=== PATIENT | male | born 1960 | race Caucasian/White ===

== ENCOUNTER 2016-12-01 05:58 | Inpatient (IN) | payer MEDICAID ==
[~2016-12-01] VITALS: Ht 177.8 cm; Wt 69.8 kg
[2016-12-01] MEDS ORDERED: SODIUM CHLORIDE 0.9% 1,000 ML IV ONE ×2 (06:40→08:25)
[2016-12-01] MEDS ORDERED: DIPH,PERTUSS(ACELL),TET VAC/PF 0.5 ML IM-VACC ONE ×2 (06:58→07:00)
[2016-12-01] MEDS ORDERED: SODIUM CHLORIDE 0.9% 1,000ML IVBOLUS ONE ×2 (07:00)
[2016-12-01] MEDS ORDERED: AMPICILLIN/SULBACTAM 3 GM in SODIUM CHLORIDE 0.9% 100 ML IVPB ONE (07:00)
[2016-12-01 07:34] LABS: ASPARTATE AMINO TRANSFERASE 35 U/L (15-37); BLOOD UREA NITROGEN 27 mg/dL (7-18)
[2016-12-01] MEDS ORDERED: SODIUM CHLORIDE FLUSH 10ML SYR IVF PRN (08:30)
[2016-12-01 10:19] VITALS: BP 127/70
[2016-12-01] MEDS ORDERED: VANCOMYCIN PMX 1GM/200ML 200 ML IV ONE (12:00)
[2016-12-01] MEDS ORDERED: VANCOMYCIN PER PHARMACY MC PRN (12:00)
[2016-12-01] MEDS ORDERED: PHARMACY INSTRUCTION MC SCH (12:00)
[2016-12-01] MEDS ORDERED: PHARMACOKINETIC MONITORING MC PRN (12:30)
[2016-12-01] MEDS ORDERED: PHARMACOKINETIC CONSULTATION MC ONE (12:30)
[2016-12-01 12:35] VITALS: BP 98/60
[2016-12-01] MEDS: SERTRALINE 50MG TABLET PO SCH (13:00)
[2016-12-01] MEDS ORDERED: ACETAMINOPHEN 325 MG TABLET PO PRN (13:00)
[2016-12-01] MEDS: SODIUM CHLORIDE 0.9% 1,000 ML IV SCH ×2 (13:03→21:48)
[2016-12-01] MEDS: VANCOMYCIN PMX 1GM/200ML 200 ML IV SCH (13:18)
[2016-12-01] MEDS: PIPERACILLIN/TAZO 3.375 GM in SODIUM CHLORIDE 0.9% 50 ML IV SCH ×2 (15:10→21:48)
[2016-12-01] MEDS ORDERED: ONDANSETRON 2MG/ML, 2ML ONE (16:29)
[2016-12-01] MEDS ORDERED: EPHEDRINE 50 MG/ML, 1ML ONE (16:29)
[2016-12-01] MEDS ORDERED: PROPOFOL 10 MG/ML, 20ML ONE (16:29)
[2016-12-01] MEDS ORDERED: FENTANYL PF 250 MCG/5ML ONE (16:30)
[2016-12-01] MEDS ORDERED: FENTANYL PF 100 MCG/2ML IV PRN (17:00)
[2016-12-01] MEDS ORDERED: hydrALAzine 20 MG/ML, 1ML IV PRN (17:00)
[2016-12-01] MEDS ORDERED: LABETALOL 5MG/ML, 20ML IV PRN (17:00)
[2016-12-01] MEDS ORDERED: HYDROmorphone 1 MG/ML, 1ML IV PRN (17:00)
[2016-12-01] MEDS ORDERED: OXYcodone 5 MG/5 ML ORAL.SOL UDC PO PRN (17:00)
[2016-12-01] MEDS ORDERED: ONDANSETRON 2MG/ML, 2ML IVPush PRN (17:00)
[2016-12-01] MEDS ORDERED: OXYcodone 5 MG/5 ML ORAL.SOL UDC ONE (17:16)
[2016-12-01 18:56] VITALS: BP 97/66
[2016-12-01] MEDS ORDERED: SERT50TA PO (23:12)
[2016-12-02 01:19] VITALS: BP 93/60
[2016-12-02] MEDS: PIPERACILLIN/TAZO 3.375 GM in SODIUM CHLORIDE 0.9% 50 ML IV SCH ×4 (03:08→20:56)
[2016-12-02 05:42] LABS: BLOOD UREA NITROGEN 19 mg/dL (7-18)
[2016-12-02 08:23] VITALS: BP 98/60
[2016-12-02] MEDS: SODIUM CHLORIDE 0.9% 1,000 ML IV SCH ×2 (09:33→20:56)
[2016-12-02] MEDS: SERTRALINE 50MG TABLET PO SCH (09:33)
[2016-12-02] MEDS: HEPARIN 5,000 UNITS/ML, 1ML SQ SCH ×2 (13:05→20:56)
[2016-12-02] MEDS: VANCOMYCIN PMX 1GM/200ML 200 ML IV SCH (13:05)
[2016-12-02 16:43] VITALS: BP 91/57
[2016-12-02 20:19] VITALS: BP 88/56
[2016-12-02 20:45] VITALS: BP 90/57
[2016-12-02 22:08] VITALS: BP_SYST 88; BP_SYST 91; BP_DIAS 57; BP_DIAS 59
[2016-12-03] VITALS (10 sets, daily range): BP systolic 90–114; BP diastolic 57–71
[2016-12-03] MEDS: PIPERACILLIN/TAZO 3.375 GM in SODIUM CHLORIDE 0.9% 50 ML IV SCH ×4 (02:36→23:38)
[2016-12-03] MEDS: HEPARIN 5,000 UNITS/ML, 1ML SQ SCH ×3 (05:07→20:52)
[2016-12-03 06:07] LABS: BLOOD UREA NITROGEN 15 mg/dL (7-18)
[2016-12-03] MEDS: SODIUM CHLORIDE 0.9% 1,000 ML IV SCH ×2 (06:41→23:37)
[2016-12-03] MEDS: SERTRALINE 50MG TABLET PO SCH (09:32)
[2016-12-03] MEDS: NICOTINE 21 MG/24 HR PATCH.TD24 TD SCH (09:32)
[2016-12-03] MEDS: VANCOMYCIN PMX 1GM/200ML 200 ML IV SCH (13:32)
[2016-12-03] MEDS: morphine SULFATE 10 MG/ML, 1ML IVPush PRN ×2 (13:49→20:52)
[2016-12-04] MEDS: morphine SULFATE 10 MG/ML, 1ML IVPush PRN ×4 (00:54→21:37)
[2016-12-04 01:08] VITALS: BP 138/89
[2016-12-04] MEDS: PIPERACILLIN/TAZO 3.375 GM in SODIUM CHLORIDE 0.9% 50 ML IV SCH ×4 (04:49→23:32)
[2016-12-04] MEDS: HEPARIN 5,000 UNITS/ML, 1ML SQ SCH ×3 (04:49→21:24)
[2016-12-04 07:59] VITALS: BP 163/92
[2016-12-04] MEDS: SERTRALINE 50MG TABLET PO SCH (08:55)
[2016-12-04] MEDS: NICOTINE 21 MG/24 HR PATCH.TD24 TD SCH (08:56)
[2016-12-04] MEDS: SODIUM CHLORIDE 0.9% 1,000 ML IV SCH ×2 (11:29→21:24)
[2016-12-04 15:07] VITALS: BP 107/70
[2016-12-04] MEDS ORDERED: LOPERAMIDE 2 MG CAPSULE PO PRN (16:30)
[2016-12-04] MEDS: LOPERAMIDE 2 MG CAPSULE PO PRN (17:20)
[2016-12-04 18:52] VITALS: BP 129/78
[2016-12-04] MEDS: LACTOBACILLUS CHEW TABLET PO SCH (21:24)
[2016-12-04] MEDS: VANCOMYCIN 1,100 MG in SODIUM CHLORIDE 0.9% 250 ML IV SCH (21:24)
[2016-12-05 01:51] VITALS: BP 119/69
[2016-12-05] MEDS: LOPERAMIDE 2 MG CAPSULE PO PRN ×4 (04:09→23:51)
[2016-12-05 05:46] LABS: BLOOD UREA NITROGEN 13 mg/dL (7-18)
[2016-12-05] MEDS: HEPARIN 5,000 UNITS/ML, 1ML SQ SCH ×3 (06:22→19:28)
[2016-12-05] MEDS: PIPERACILLIN/TAZO 3.375 GM in SODIUM CHLORIDE 0.9% 50 ML IV SCH ×2 (06:22→11:43)
[2016-12-05 07:49] VITALS: BP 115/76
[2016-12-05] MEDS: LACTOBACILLUS CHEW TABLET PO SCH ×3 (07:56→20:32)
[2016-12-05] MEDS: SERTRALINE 50MG TABLET PO SCH (07:56)
[2016-12-05] MEDS: NICOTINE 21 MG/24 HR PATCH.TD24 TD SCH (07:57)
[2016-12-05] MEDS: SODIUM CHLORIDE 0.9% 1,000 ML IV SCH ×2 (10:32→20:33)
[2016-12-05] MEDS: morphine SULFATE 10 MG/ML, 1ML IVPush PRN ×3 (11:45→23:51)
[2016-12-05 15:20] VITALS: BP 120/74
[2016-12-05] MEDS: PIPERACILLIN/TAZO/PMX 3.375GM 50 ML IV SCH ×2 (18:55→23:51)
[2016-12-05 19:25] VITALS: BP 149/79
[2016-12-06 03:00] VITALS: BP 132/74
[2016-12-06] MEDS: HEPARIN 5,000 UNITS/ML, 1ML SQ SCH ×3 (05:00→21:35)
[2016-12-06] MEDS: SODIUM CHLORIDE 0.9% 1,000 ML IV SCH ×2 (05:07→17:06)
[2016-12-06] MEDS: PIPERACILLIN/TAZO/PMX 3.375GM 50 ML IV SCH ×3 (05:07→18:13)
[2016-12-06] MEDS: morphine SULFATE 10 MG/ML, 1ML IVPush PRN ×4 (05:07→21:35)
[2016-12-06 06:49] VITALS: BP 149/77
[2016-12-06] MEDS: LACTOBACILLUS CHEW TABLET PO SCH ×4 (09:00→21:35)
[2016-12-06] MEDS: SERTRALINE 50MG TABLET PO SCH ×2 (09:00→09:48)
[2016-12-06] MEDS: VANCOMYCIN 1,100 MG in SODIUM CHLORIDE 0.9% 250 ML IV SCH (09:47)
[2016-12-06] MEDS: NICOTINE 21 MG/24 HR PATCH.TD24 TD SCH (09:48)
[2016-12-06] MEDS: LOPERAMIDE 2 MG CAPSULE PO PRN ×2 (12:37→21:35)
[2016-12-06 14:36] VITALS: BP 135/72
[2016-12-06 19:24] VITALS: BP 150/78
[2016-12-07] MEDS: SODIUM CHLORIDE 0.9% 1,000 ML IV SCH ×3 (01:22→23:29)
[2016-12-07] MEDS: PIPERACILLIN/TAZO/PMX 3.375GM 50 ML IV SCH ×5 (01:22→23:29)
[2016-12-07 01:35] VITALS: BP 132/81
[2016-12-07] MEDS: HEPARIN 5,000 UNITS/ML, 1ML SQ SCH ×3 (05:22→20:13)
[2016-12-07 06:45] VITALS: BP 145/76
[2016-12-07] MEDS: SERTRALINE 50MG TABLET PO SCH (09:54)
[2016-12-07] MEDS: NICOTINE 21 MG/24 HR PATCH.TD24 TD SCH (09:54)
[2016-12-07] MEDS: LACTOBACILLUS CHEW TABLET PO SCH ×3 (09:55→20:13)
[2016-12-07] MEDS: morphine SULFATE 10 MG/ML, 1ML IVPush PRN ×2 (09:55→20:13)
[2016-12-07 13:00] VITALS: BP 147/85
[2016-12-07 18:30] VITALS: BP 140/84
[2016-12-07] MEDS: VANCOMYCIN 1,100 MG in SODIUM CHLORIDE 0.9% 250 ML IV SCH (20:13)
[2016-12-08 02:39] VITALS: BP 136/88
[2016-12-08] MEDS: HEPARIN 5,000 UNITS/ML, 1ML SQ SCH ×3 (05:18→20:08)
[2016-12-08] MEDS: PIPERACILLIN/TAZO/PMX 3.375GM 50 ML IV SCH ×3 (05:18→17:01)
[2016-12-08 06:53] VITALS: BP 147/89
[2016-12-08] MEDS ORDERED: MORPHINE SULFATE 4 MG/ML, 1ML ONE ×2 (07:54→16:59)
[2016-12-08] MEDS: NICOTINE 21 MG/24 HR PATCH.TD24 TD SCH (07:58)
[2016-12-08] MEDS: SERTRALINE 50MG TABLET PO SCH (07:59)
[2016-12-08] MEDS: LACTOBACILLUS CHEW TABLET PO SCH ×3 (07:59→20:08)
[2016-12-08] MEDS: morphine SULFATE 10 MG/ML, 1ML IVPush PRN ×3 (08:03→21:21)
[2016-12-08] MEDS ORDERED: PROPOFOL 10 MG/ML, 20ML ONE (09:43)
[2016-12-08] MEDS ORDERED: EPHEDRINE 50 MG/ML, 1ML ONE (09:43)
[2016-12-08] MEDS ORDERED: ONDANSETRON 2MG/ML, 2ML ONE (09:43)
[2016-12-08] MEDS ORDERED: CEFAZOLIN 1,000 MG ONE (09:43)
[2016-12-08] MEDS: SODIUM CHLORIDE 0.9% 1,000 ML IV SCH ×2 (12:13→22:56)
[2016-12-08 13:23] VITALS: BP 130/65
[2016-12-08 19:26] VITALS: BP 127/67
[2016-12-09] MEDS: PIPERACILLIN/TAZO/PMX 3.375GM 50 ML IV SCH ×4 (00:02→18:20)
[2016-12-09] MEDS: LOPERAMIDE 2 MG CAPSULE PO PRN ×2 (01:43→16:21)
[2016-12-09 01:56] VITALS: BP 118/72
[2016-12-09] MEDS: HEPARIN 5,000 UNITS/ML, 1ML SQ SCH ×3 (05:00→21:37)
[2016-12-09 08:05] VITALS: BP 153/84
[2016-12-09] MEDS: VANCOMYCIN 1,100 MG in SODIUM CHLORIDE 0.9% 250 ML IV SCH (09:00)
[2016-12-09] MEDS: SODIUM CHLORIDE 0.9% 1,000 ML IV SCH (09:00)
[2016-12-09] MEDS: LACTOBACILLUS CHEW TABLET PO SCH ×3 (09:00→21:37)
[2016-12-09] MEDS: SERTRALINE 50MG TABLET PO SCH (09:00)
[2016-12-09] MEDS ORDERED: FENTANYL PF 250 MCG/5ML ONE (09:26)
[2016-12-09] MEDS ORDERED: MIDAZOLAM 1 MG/ML, 2ML ONE (09:27)
[2016-12-09] MEDS ORDERED: BUPIVACAINE/PF 0.5% ONE (10:09)
[2016-12-09] MEDS ORDERED: BUPIVACAINE/PF 0.5% INFIL ONE (10:17)
[2016-12-09] MEDS ORDERED: PROMETHAZINE 25 MG/ML, 1ML IV PRN (10:30)
[2016-12-09] MEDS ORDERED: HYDROcodone/APAP 7.5-325MG/15ML UDC PO PRN (10:30)
[2016-12-09] MEDS ORDERED: ACETAMINOPHEN 325 MG TABLET PO PRN (10:30)
[2016-12-09] MEDS ORDERED: MIDAZOLAM 1 MG/ML, 2ML IV PRN (10:30)
[2016-12-09] MEDS ORDERED: ONDANSETRON 2MG/ML, 2ML IVPush PRN (10:30)
[2016-12-09] MEDS ORDERED: MEPERIDINE/PF 25MG/0.5ML IVPush PRN (10:30)
[2016-12-09] MEDS ORDERED: OXYcodone 5 MG/5 ML ORAL.SOL UDC PO PRN (10:30)
[2016-12-09] MEDS ORDERED: HYDROmorphone 1 MG/ML, 1ML IV PRN (10:30)
[2016-12-09] MEDS ORDERED: EPHEDRINE 50 MG/ML, 1ML IVPush PRN (10:30)
[2016-12-09] MEDS ORDERED: LABETALOL 5MG/ML, 20ML IV PRN (10:30)
[2016-12-09] MEDS ORDERED: hydrALAzine 20 MG/ML, 1ML IV PRN (10:30)
[2016-12-09] MEDS ORDERED: ACETAMINOPHEN 650 MG/20.3 ML UDC ONE (10:48)
[2016-12-09] MEDS ORDERED: FENTANYL PF 100 MCG/2ML ONE (10:48)
[2016-12-09] MEDS ORDERED: OXYcodone 5 MG/5 ML ORAL.SOL UDC ONE (10:49)
[2016-12-09] MEDS: FENTANYL PF 100 MCG/2ML IV PRN ×2 (10:56→11:13)
[2016-12-09 12:15] VITALS: BP 131/81
[2016-12-09] MEDS: NICOTINE 21 MG/24 HR PATCH.TD24 TD SCH (12:41)
[2016-12-09] MEDS: morphine SULFATE 10 MG/ML, 1ML IVPush PRN ×3 (14:23→22:06)
[2016-12-09 15:00] VITALS: BP 114/73
[2016-12-09] MEDS: METHOCARBAMOL 500 MG TABLET PO PRN (18:19)
[2016-12-09 19:16] VITALS: BP 124/75
[2016-12-10] MEDS: PIPERACILLIN/TAZO/PMX 3.375GM 50 ML IV SCH ×4 (00:13→18:20)
[2016-12-10 00:40] VITALS: BP 103/65
[2016-12-10] MEDS: morphine SULFATE 10 MG/ML, 1ML IVPush PRN ×4 (02:28→18:20)
[2016-12-10 05:14] LABS: BLOOD UREA NITROGEN 8 mg/dL (7-18)
[2016-12-10] MEDS: HEPARIN 5,000 UNITS/ML, 1ML SQ SCH ×3 (05:30→21:40)
[2016-12-10] MEDS: LOPERAMIDE 2 MG CAPSULE PO PRN (06:03)
[2016-12-10 07:00] VITALS: BP 93/60
[2016-12-10] MEDS: NICOTINE 21 MG/24 HR PATCH.TD24 TD SCH (09:00)
[2016-12-10] MEDS: LACTOBACILLUS CHEW TABLET PO SCH ×3 (10:10→21:40)
[2016-12-10] MEDS: METHOCARBAMOL 500 MG TABLET PO PRN (10:10)
[2016-12-10] MEDS: SERTRALINE 50MG TABLET PO SCH (10:10)
[2016-12-10 14:00] VITALS: BP 115/70
[2016-12-10 18:40] VITALS: BP 101/55
[2016-12-11] MEDS: PIPERACILLIN/TAZO/PMX 3.375GM 50 ML IV SCH ×5 (00:30→23:31)
[2016-12-11] MEDS: morphine SULFATE 10 MG/ML, 1ML IVPush PRN ×2 (00:30→14:10)
[2016-12-11 01:15] VITALS: BP 105/65
[2016-12-11] MEDS: HEPARIN 5,000 UNITS/ML, 1ML SQ SCH ×4 (05:15→20:27)
[2016-12-11 07:50] VITALS: BP 95/63
[2016-12-11] MEDS ORDERED: VANCOMYCIN 1,200 MG in SODIUM CHLORIDE 0.9% 250 ML IV SCH (09:00)
[2016-12-11] MEDS: SERTRALINE 50MG TABLET PO SCH (10:15)
[2016-12-11] MEDS: LACTOBACILLUS CHEW TABLET PO SCH ×3 (10:15→20:28)
[2016-12-11] MEDS: NICOTINE 21 MG/24 HR PATCH.TD24 TD SCH (10:25)
[2016-12-11 12:40] VITALS: BP 95/61
[2016-12-11 13:39] VITALS: BP 95/61
[2016-12-11] MEDS ORDERED: POTASSIUM CHLORIDE 20 MEQ TAB.ER.PRT PO ONE (16:30)
[2016-12-11 18:28] VITALS: BP 116/58
[2016-12-11] MEDS: OXYcodone IR 5MG TABLET PO PRN (20:28)
[2016-12-11] MEDS: VANCOMYCIN 1,200 MG in SODIUM CHLORIDE 0.9% 250 ML IV SCH (20:28)
[2016-12-11] MEDS: SODIUM CHLORIDE 0.9% 1,000 ML IV SCH (20:29)
[2016-12-12] MEDS: LOPERAMIDE 2 MG CAPSULE PO PRN (01:41)
[2016-12-12 02:00] VITALS: BP 116/71
[2016-12-12] MEDS: PIPERACILLIN/TAZO/PMX 3.375GM 50 ML IV SCH ×3 (05:04→18:27)
[2016-12-12] MEDS: HEPARIN 5,000 UNITS/ML, 1ML SQ SCH ×3 (05:04→21:39)
[2016-12-12 06:46] LABS: BLOOD UREA NITROGEN 13 mg/dL (7-18)
[2016-12-12 07:11] VITALS: BP 114/69
[2016-12-12] MEDS: NICOTINE 21 MG/24 HR PATCH.TD24 TD SCH (10:32)
[2016-12-12] MEDS: LACTOBACILLUS CHEW TABLET PO SCH ×3 (10:32→21:39)
[2016-12-12] MEDS: SERTRALINE 50MG TABLET PO SCH (10:32)
[2016-12-12 13:23] VITALS: BP 114/71
[2016-12-12] MEDS: OXYcodone IR 5MG TABLET PO PRN ×2 (14:15→21:43)
[2016-12-12] MEDS: SODIUM CHLORIDE 0.9% 1,000 ML IV SCH (16:28)
[2016-12-12 19:37] VITALS: BP 150/78
[2016-12-13] MEDS: PIPERACILLIN/TAZO/PMX 3.375GM 50 ML IV SCH ×5 (00:17→23:53)
[2016-12-13] MEDS: SODIUM CHLORIDE 0.9% 1,000 ML IV SCH ×3 (01:48→21:34)
[2016-12-13 03:05] VITALS: BP 125/75
[2016-12-13] MEDS: HEPARIN 5,000 UNITS/ML, 1ML SQ SCH ×3 (05:47→21:37)
[2016-12-13 06:59] LABS: BLOOD UREA NITROGEN 11 mg/dL (7-18)
[2016-12-13 07:10] VITALS: BP 108/67
[2016-12-13] MEDS: SERTRALINE 50MG TABLET PO SCH (08:59)
[2016-12-13] MEDS: NICOTINE 21 MG/24 HR PATCH.TD24 TD SCH (08:59)
[2016-12-13] MEDS: LACTOBACILLUS CHEW TABLET PO SCH ×3 (08:59→21:34)
[2016-12-13] MEDS: OXYcodone IR 5MG TABLET PO PRN ×2 (10:14→17:36)
[2016-12-13 12:29] VITALS: BP 121/68
[2016-12-13 19:38] VITALS: BP 114/65
[2016-12-13] MEDS: VANCOMYCIN 1,200 MG in SODIUM CHLORIDE 0.9% 250 ML IV SCH (20:03)
[2016-12-14] MEDS: OXYcodone IR 5MG TABLET PO PRN ×3 (01:41→17:03)
[2016-12-14] MEDS: LOPERAMIDE 2 MG CAPSULE PO PRN ×2 (01:41→21:18)
[2016-12-14 02:00] VITALS: BP 113/61
[2016-12-14 05:49] LABS: BLOOD UREA NITROGEN 10 mg/dL (7-18)
[2016-12-14] MEDS: PIPERACILLIN/TAZO/PMX 3.375GM 50 ML IV SCH ×4 (06:04→23:54)
[2016-12-14] MEDS: HEPARIN 5,000 UNITS/ML, 1ML SQ SCH ×3 (06:05→21:20)
[2016-12-14] MEDS: SODIUM CHLORIDE 0.9% 1,000 ML IV SCH ×2 (08:13→20:08)
[2016-12-14 08:30] VITALS: BP 150/81
[2016-12-14] MEDS: NICOTINE 21 MG/24 HR PATCH.TD24 TD SCH (08:45)
[2016-12-14] MEDS: LACTOBACILLUS CHEW TABLET PO SCH ×3 (08:45→21:18)
[2016-12-14] MEDS: SERTRALINE 50MG TABLET PO SCH (08:45)
[2016-12-14 14:30] VITALS: BP 147/80
[2016-12-14 20:24] VITALS: BP 127/74
[2016-12-15 02:25] VITALS: BP 111/63
[2016-12-15] MEDS: ONDANSETRON 2MG/ML, 2ML IVPush PRN ×2 (05:13→15:24)
[2016-12-15] MEDS: OXYcodone IR 5MG TABLET PO PRN ×3 (05:13→21:13)
[2016-12-15] MEDS: PIPERACILLIN/TAZO/PMX 3.375GM 50 ML IV SCH ×3 (05:57→17:45)
[2016-12-15] MEDS: SODIUM CHLORIDE 0.9% 1,000 ML IV SCH ×2 (05:57→15:25)
[2016-12-15] MEDS: HEPARIN 5,000 UNITS/ML, 1ML SQ SCH ×3 (06:01→20:12)
[2016-12-15 07:54] VITALS: BP 107/61
[2016-12-15] MEDS: NICOTINE 21 MG/24 HR PATCH.TD24 TD SCH (10:19)
[2016-12-15] MEDS: SERTRALINE 50MG TABLET PO SCH (10:19)
[2016-12-15] MEDS: LACTOBACILLUS CHEW TABLET PO SCH ×3 (10:19→20:12)
[2016-12-15 14:30] VITALS: BP 128/81
[2016-12-15] MEDS: DRONABINOL 5 MG CAPSULE PO SCH (15:25)
[2016-12-15 19:18] VITALS: BP 120/74
[2016-12-15] MEDS: LOPERAMIDE 2 MG CAPSULE PO PRN (22:33)
[2016-12-16] MEDS: PIPERACILLIN/TAZO/PMX 3.375GM 50 ML IV SCH ×3 (00:15→11:59)
[2016-12-16 00:36] VITALS: BP 123/79
[2016-12-16] MEDS: SODIUM CHLORIDE 0.9% 1,000 ML IV SCH ×3 (02:13→21:31)
[2016-12-16] MEDS: OXYcodone IR 5MG TABLET PO PRN ×3 (05:04→16:03)
[2016-12-16] MEDS: HEPARIN 5,000 UNITS/ML, 1ML SQ SCH ×3 (06:13→21:31)
[2016-12-16] MEDS: DRONABINOL 5 MG CAPSULE PO SCH ×3 (06:42→16:03)
[2016-12-16 06:49] VITALS: BP 125/81
[2016-12-16] MEDS: LACTOBACILLUS CHEW TABLET PO SCH ×3 (09:10→21:00)
[2016-12-16] MEDS: SERTRALINE 50MG TABLET PO SCH (09:10)
[2016-12-16] MEDS: NICOTINE 21 MG/24 HR PATCH.TD24 TD SCH (09:10)
[2016-12-16] MEDS ORDERED: ACETAMINOPHEN 325 MG TABLET PO PRN (12:30)
[2016-12-16] MEDS ORDERED: PHARMACOKINETIC MONITORING MC PRN (12:30)
[2016-12-16] MEDS ORDERED: VANCOMYCIN PER PHARMACY MC PRN (12:30)
[2016-12-16 13:26] VITALS: BP 106/63
[2016-12-16 19:04] VITALS: BP_SYST 106; BP_SYST 110; BP_DIAS 58; BP_DIAS 64
[2016-12-16] MEDS ORDERED: VANCOMYCIN 1,200 MG in SODIUM CHLORIDE 0.9% 250 ML IV SCH (20:00)
[2016-12-17 01:28] VITALS: BP 126/71
[2016-12-17] MEDS: OXYcodone IR 5MG TABLET PO PRN ×2 (02:38→11:30)
[2016-12-17] MEDS: HEPARIN 5,000 UNITS/ML, 1ML SQ SCH ×3 (05:36→20:34)
[2016-12-17 07:33] VITALS: BP 144/79
[2016-12-17] MEDS: SODIUM CHLORIDE 0.9% 1,000 ML IV SCH ×2 (08:13→20:35)
[2016-12-17] MEDS: SERTRALINE 50MG TABLET PO SCH (08:14)
[2016-12-17] MEDS: LACTOBACILLUS CHEW TABLET PO SCH ×3 (08:14→20:34)
[2016-12-17] MEDS: DRONABINOL 5 MG CAPSULE PO SCH ×3 (08:14→16:09)
[2016-12-17] MEDS: NICOTINE 21 MG/24 HR PATCH.TD24 TD SCH (08:17)
[2016-12-17 12:21] VITALS: BP 127/71
[2016-12-17 19:40] VITALS: BP 137/77
[2016-12-18 01:50] VITALS: BP 131/72
[2016-12-18] MEDS: OXYcodone IR 5MG TABLET PO PRN (02:48)
[2016-12-18 05:46] LABS: BLOOD UREA NITROGEN 8 mg/dL (7-18)
[2016-12-18] MEDS: DRONABINOL 5 MG CAPSULE PO SCH ×3 (05:46→15:35)
[2016-12-18] MEDS: HEPARIN 5,000 UNITS/ML, 1ML SQ SCH ×3 (05:46→21:39)
[2016-12-18 07:21] VITALS: BP 114/67
[2016-12-18] MEDS: SERTRALINE 50MG TABLET PO SCH (09:21)
[2016-12-18] MEDS: NICOTINE 21 MG/24 HR PATCH.TD24 TD SCH (09:21)
[2016-12-18] MEDS: LACTOBACILLUS CHEW TABLET PO SCH ×3 (09:21→21:37)
[2016-12-18] MEDS ORDERED: POTASSIUM CHLORIDE 20 MEQ TAB.ER.PRT PO ONE (10:00)
[2016-12-18 12:40] VITALS: BP 163/81
[2016-12-18] MEDS: SODIUM CHLORIDE 0.9% 1,000 ML IV SCH (15:34)
[2016-12-18 19:50] VITALS: BP 157/78
[2016-12-19] MEDS: OXYcodone IR 5MG TABLET PO PRN ×2 (00:30→16:15)
[2016-12-19 01:55] VITALS: BP 149/72
[2016-12-19 06:07] LABS: BLOOD UREA NITROGEN 7 mg/dL (7-18)
[2016-12-19] MEDS: HEPARIN 5,000 UNITS/ML, 1ML SQ SCH ×2 (06:19→16:13)
[2016-12-19] MEDS: DRONABINOL 5 MG CAPSULE PO SCH ×3 (06:19→16:16)
[2016-12-19 07:11] VITALS: BP 152/72
[2016-12-19] MEDS: LACTOBACILLUS CHEW TABLET PO SCH ×3 (10:02→20:25)
[2016-12-19] MEDS: SERTRALINE 50MG TABLET PO SCH (10:02)
[2016-12-19] MEDS: NICOTINE 21 MG/24 HR PATCH.TD24 TD SCH (10:02)
[2016-12-19] MEDS: SODIUM CHLORIDE 0.9% 1,000 ML IV SCH (10:08)
[2016-12-19 12:51] VITALS: BP 148/79
[2016-12-19] MEDS ORDERED: POTASSIUM CHLORIDE 40 MEQ in SODIUM CHLORIDE 0.9% 500 ML IV ONE (14:00)
[2016-12-19 19:24] VITALS: BP 162/80
[2016-12-19 22:41] VITALS: BP 172/93
[2016-12-19] MEDS: LABETALOL 5MG/ML, 20ML IVPush PRN (22:41)
[2016-12-20] MEDS: ONDANSETRON 2MG/ML, 2ML IVPush PRN (00:14)
[2016-12-20] MEDS: HEPARIN 5,000 UNITS/ML, 1ML SQ SCH ×3 (00:14→16:13)
[2016-12-20 02:19] VITALS: BP 164/86
[2016-12-20 05:52] LABS: BLOOD UREA NITROGEN 6 mg/dL (7-18)
[2016-12-20] MEDS: DRONABINOL 5 MG CAPSULE PO SCH ×3 (06:17→16:16)
[2016-12-20 07:10] VITALS: BP 154/46
[2016-12-20] MEDS: OXYcodone IR 5MG TABLET PO PRN (07:16)
[2016-12-20] MEDS: LACTOBACILLUS CHEW TABLET PO SCH ×2 (07:31→16:13)
[2016-12-20] MEDS: SERTRALINE 50MG TABLET PO SCH (07:31)
[2016-12-20] MEDS: NICOTINE 21 MG/24 HR PATCH.TD24 TD SCH (07:32)
[2016-12-20] MEDS ORDERED: METH500T7 PO (08:26)
[2016-12-20] MEDS ORDERED: DRON5CAP15 PO (08:26)
[2016-12-20] MEDS ORDERED: POLY17PO5 PO (08:26)
[2016-12-20] MEDS ORDERED: TRAM50TA2 PO (08:26)
[2016-12-20] MEDS ORDERED: OXYC5TAB3 PO (08:26)
[2016-12-20] MEDS ORDERED: ACID1TAB7 PO (08:26)
[2016-12-20] MEDS ORDERED: NICO1PAT5 TD (08:26)
[2016-12-20] MEDS: POTASSIUM CHLORIDE 40 MEQ in SODIUM CHLORIDE 0.9% 500 ML IV SCH ×2 (09:26→13:35)
[2016-12-20] MEDS: SODIUM CHLORIDE 0.9% 1,000 ML IV SCH (12:00)
[2016-12-20 12:39] VITALS: BP 174/82
[2016-12-20] MEDS: LABETALOL 5MG/ML, 20ML IVPush PRN (15:08)
== END 2016-12-20 19:00 | DRG 853 ==
LOC: ED 07:06 → EDIP 08:25 → 3NE 10:08
PROVIDERS: ADMIT Hospitalist; ATTEND Internal Medicine
PROC: 0Y6N0ZB Detachment at Left Foot, Partial 2nd Ray, Open Approach (ICD-10-PCS; 2016-12-01)
PROC: 0Y6N0ZC Detachment at Left Foot, Partial 3rd Ray, Open Approach (ICD-10-PCS; 2016-12-01)
PROC: 0Y6N0ZD Detachment at Left Foot, Partial 4th Ray, Open Approach (ICD-10-PCS; 2016-12-01)
PROC: 0Y6N0ZF Detachment at Left Foot, Partial 5th Ray, Open Approach (ICD-10-PCS; 2016-12-01)
PROC: 0Y6N0Z9 Detachment at Left Foot, Partial 1st Ray, Open Approach (ICD-10-PCS; principal; 2016-12-01 17:30)
PROC: 30233N1 Transfusion of Nonautologous Red Blood Cells into Peripheral Vein, Percutaneous Approach (ICD-10-PCS; 2016-12-03)
PROC: 0L8P0ZZ Division of Left Lower Leg Tendon, Open Approach (ICD-10-PCS; 2016-12-09)
PROC: 0Y6N0Z9 Detachment at Left Foot, Partial 1st Ray, Open Approach (ICD-10-PCS; 2016-12-09)
PROC: 0Y6N0ZB Detachment at Left Foot, Partial 2nd Ray, Open Approach (ICD-10-PCS; 2016-12-09)
PROC: 0Y6N0ZC Detachment at Left Foot, Partial 3rd Ray, Open Approach (ICD-10-PCS; 2016-12-09)
PROC: 0Y6N0ZD Detachment at Left Foot, Partial 4th Ray, Open Approach (ICD-10-PCS; 2016-12-09)
PROC: 0Y6N0ZF Detachment at Left Foot, Partial 5th Ray, Open Approach (ICD-10-PCS; 2016-12-09)
DX: A41.9 Sepsis, unspecified organism (principal); E43 Unspecified severe protein-calorie malnutrition; N17.0 Acute kidney failure with tubular necrosis; G93.41 Metabolic encephalopathy; I96 Gangrene, not elsewhere classified; E87.1 Hypo-osmolality and hyponatremia; M86.9 Osteomyelitis, unspecified; D64.9 Anemia, unspecified; F17.210 Nicotine dependence, cigarettes, uncomplicated; H54.0 Blindness, both eyes; L97.529 Non-pressure chronic ulcer of other part of left foot with unspecified severity; N18.3 Chronic kidney disease, stage 3 (moderate); D50.0 Iron deficiency anemia secondary to blood loss (chronic); D63.1 Anemia in chronic kidney disease; E87.6 Hypokalemia; F32.9 Major depressive disorder, single episode, unspecified; R19.7 Diarrhea, unspecified; M21.6X2 Other acquired deformities of left foot; Z68.22 Body mass index [BMI] 22.0-22.9, adult; Z98.42 Cataract extraction status, left eye; Z98.41 Cataract extraction status, right eye; Z79.899 Other long term (current) drug therapy
CPT/HCPCS: 36415; 71010; 80048; 80053; 80202; 81001; 82565; 83036; 83605; 84132; 84145; 84520; 85014; 85018; 85025; 86850; 86900; 86923; 87040; 87070; 87075; 87077; 87147; 87176; 87181; 87186; 87205; 87324; 88307; 90715; 96365; 97163; J0295; J0690; J1644; J2250; J2405; J2543; J2704; J3010; J3370; J3480; J3490; Q0167; J2270; J7030; J7040; J7050; P9016

== ENCOUNTER 2019-03-04 20:01 | Inpatient (IN) | payer MEDICAID, MEDICARE ==
[~2019-03-04] VITALS: Ht 177.8 cm; Wt 57.5 kg
[~2019-03-04 20:01] MED LIST: ACID1TAB7 PO; DRON5CAP15 PO; METH500T7 PO; NICO-487 TD; OXYC5TAB3 PO; POLY17PO5 PO; SERT50TA PO; TRAM50TA2 PO
--- NOTE | 2019-03-04 20:43 | NUR ---
Contact Ale- sister [phone]
[2019-03-04] MEDS ORDERED: LIDOCAINE-MPF 1%, 5ML ONE (21:56)
[2019-03-04] MEDS ORDERED: DIPH,PERTUSS(ACELL),TET VAC/PF 0.5 ML IM-VACC ONE (21:56)
[2019-03-04] MEDS ORDERED: HYDROmorphone 1 MG/ML, 1ML INJ IV ONE (22:00)
[2019-03-04] MEDS ORDERED: ONDANSETRON 2MG/ML, 2ML IVPush ONE (22:00)
--- NOTE | 2019-03-04 22:15 | NUR ---
Sister shawn called this rn and would like to be updated on pt po. Sister would like to be called for potential admit vs. d/c. This rn at bedside to establish iv and give meds per mar.
[2019-03-04] MEDS ORDERED: ONDANSETRON 2MG/ML, 2ML ONE (22:19)
[2019-03-04] MEDS ORDERED: HYDROmorphone 1 MG/ML, 1ML VIAL ONE (22:19)
[2019-03-04 22:29] LABS: BASOPHILS # (AUTO) 0.02 x10^3/uL (0-0.1); BASOPHILS % (AUTO) 0 % (0-1); EOSINOPHILS # (AUTO) 0.09 x10^3/uL (0-0.4); EOSINOPHILS % (AUTO) 1 % (1-7); LYMPHOCYTES # (AUTO) 1.01 x10^3/uL (1-3.4); LYMPHOCYTES % (AUTO) 10 % (22-44); MD NO; MEAN CORPUSCULAR HEMOGLOBIN 31.8 pg (27.5-34.5); MEAN CORPUSCULAR HGB CONC 33.8 g/dL (33.2-36.2); MEAN CORPUSCULAR VOLUME 94.2 fL (81-97); MEAN PLATELET VOLUME 7.1 fL (7.4-10.4); MONOCYTES # (AUTO) 0.16 x10^3/uL (0.2-0.8); MONOCYTES % (AUTO) 2 % (2-9); NEUTROPHILS # (AUTO) 8.78 x10^3/uL (1.8-6.8); NEUTROPHILS % (AUTO) 87 % (42-75); PLATELET COUNT 387 x10^3/uL (130-400); RED BLOOD COUNT 4.17 x10^6/uL (4.38-5.82); RED CELL DISTRIBUTION WIDTH 13.6 % (9.4-14.8)
[2019-03-04 22:30] LABS: HCT (SEDRATE) 38.9 % (39.2-51.8)
--- NOTE | 2019-03-04 22:31 | NUR ---
Pt upgraded to lyudmila 3 for potential of septic infection. Blood cultures drawn and iv initiated. Pt states fell 8 days ago and slid R foot into dresser and pain/redness increasing since then. Pt denies any further pain at this time. Pt states L foot toes taken for "infection down to my bones." Monitoring applied at this time. Call light still within reach.
[2019-03-04 22:40] LABS: ALANINE AMINOTRANSFERASE 21 U/L (12-78); ALBUMIN 2.1 g/dL (3.4-5.0); ANION GAP 11 mmol/L (5-15); CALCIUM 8.2 mg/dL (8.5-10.1); CHLORIDE 95 mmol/L (98-107); CREATININE 1.31 mg/dL (0.7-1.3)
[2019-03-04 22:47] LABS: ALKALINE PHOSPHATASE 81 U/L (45-117); BILIRUBIN,TOTAL 0.5 mg/dL (0.2-1.0); TOTAL PROTEIN 7.3 g/dL (6.4-8.2)
--- NOTE | 2019-03-04 22:51 | NUR ---
[facility] This rn attempted to contact friend in [place], [place]. Pt updated. Informed he will be admitted per pa verbal order.
[2019-03-04] MEDS ORDERED: POTASSIUM CHLORIDE 20 MEQ TAB.ER.PRT ONE (23:29)
[2019-03-04] MEDS ORDERED: POTASSIUM CHLORIDE 20 MEQ TAB.ER.PRT PO ONE (23:30)
[2019-03-05] MEDS ORDERED: POTASSIUM CHLORIDE 20 MEQ, MAGNESIUM SULFATE 2 GM, THIAMINE 200 MG, MVI ADULT 10 ML, FO... IV SCH (00:35)
[2019-03-05] MEDS ORDERED: morphine SULFATE 10 MG/ML, 1ML IVPush PRN (01:00)
[2019-03-05] MEDS ORDERED: ONDANSETRON 2MG/ML, 2ML IVPush PRN (01:00)
[2019-03-05] MEDS ORDERED: PHARMACOKINETIC CONSULTATION MC ONE (01:00)
[2019-03-05] MEDS ORDERED: LORazepam 1MG TABLET PO PRN (01:00)
[2019-03-05] MEDS ORDERED: VANCOMYCIN PER PHARMACY MC PRN (01:00)
[2019-03-05] MEDS ORDERED: ACETAMINOPHEN 325 MG TABLET PO PRN (01:00)
[2019-03-05] MEDS ORDERED: PHARMACOKINETIC MONITORING MC PRN (01:00)
[2019-03-05] MEDS: OXYcodone/APAP 5/325MG TABLET PO PRN ×6 (01:08→20:13)
[2019-03-05] MEDS: NICOTINE 21 MG/24 HR PATCH.TD24 TD SCH (01:13)
[2019-03-05] MEDS: AMPICILLIN/SULBACTAM 3 GM in SODIUM CHLORIDE 0.9% 100 ML IV SCH ×4 (01:44→22:01)
[2019-03-05 01:48] VITALS: BP 138/65
[2019-03-05 01:48] LABS: INTERNATIONAL NORMALIZED RATIO 1.09 (0.93-1.1); PROTHROMBIN TIME 11.4 Seconds (9.6-11.5)
[2019-03-05 01:57] LABS: HEMOGLOBIN A1C 6.2 % (4.2-6.3)
[2019-03-05 02:11] VITALS: BP 109/69
[2019-03-05] MEDS: VANCOMYCIN 1,400 MG in SODIUM CHLORIDE 0.9% 250 ML IV SCH ×2 (02:31→20:13)
[2019-03-05 06:30] LABS: AMPHETAMINE SCREEN, URINE Negative (Negative); BARBITURATE SCREEN, URINE Negative (Negative); BENZODIAZEPINE SCREEN, URINE Negative (Negative); CANNABINOID SCREEN, URINE Negative (Negative); COCAINE SCREEN, URINE Negative (Negative); METHADONE SCREEN, URINE Negative (Negative); POTASSIUM,URINE RANDOM 13 mmol/L; SODIUM,URINE RANDOM 19 mmol/L
[2019-03-05 06:31] LABS: OPIATE SCREEN, URINE Positive (Negative)
[2019-03-05 06:32] LABS: CHLORIDE,URINE RANDOM < 10 mmol/L
[2019-03-05 06:40] VITALS: BP 131/74
[2019-03-05 06:45] LABS: BASOPHILS # (AUTO) 0.02 x10^3/uL (0-0.1); BASOPHILS % (AUTO) 0 % (0-1); EOSINOPHILS # (AUTO) 0.28 x10^3/uL (0-0.4); EOSINOPHILS % (AUTO) 4 % (1-7); LYMPHOCYTES # (AUTO) 1.19 x10^3/uL (1-3.4); LYMPHOCYTES % (AUTO) 17 % (22-44); MD NO; MEAN CORPUSCULAR HEMOGLOBIN 31.4 pg (27.5-34.5); MEAN CORPUSCULAR HGB CONC 33.6 g/dL (33.2-36.2); MEAN CORPUSCULAR VOLUME 93.4 fL (81-97); MEAN PLATELET VOLUME 6.9 fL (7.4-10.4); MONOCYTES % (AUTO) 3 % (2-9); NEUTROPHILS # (AUTO) 5.24 x10^3/uL (1.8-6.8); NEUTROPHILS % (AUTO) 76 % (42-75); PLATELET COUNT 358 x10^3/uL (130-400); RED BLOOD COUNT 3.83 x10^6/uL (4.38-5.82); RED CELL DISTRIBUTION WIDTH 13.6 % (9.4-14.8)
[2019-03-05 06:51] LABS: ANION GAP 7 mmol/L (5-15); CALCIUM 7.9 mg/dL (8.5-10.1); CHLORIDE 101 mmol/L (98-107)
[2019-03-05 06:53] LABS: CREATININE 1.24 mg/dL (0.7-1.3)
[2019-03-05 07:06] LABS: CHOL/HDL RATIO 5.9; LDL/HDL RATIO 3.3 (0.5-3.0)
[2019-03-05] MEDS: SENNA/DOCUSATE TABLET PO SCH (09:00)
[2019-03-05] MEDS ORDERED: GADOBUTROL 7.5 MMOL/7.5 ML VIAL ONE (11:32)
[2019-03-05 12:35] VITALS: BP 124/78
[2019-03-05 20:16] VITALS: BP 134/74
[2019-03-06] MEDS: NICOTINE 21 MG/24 HR PATCH.TD24 TD SCH ×2 (02:06→23:44)
[2019-03-06] MEDS: OXYcodone/APAP 5/325MG TABLET PO PRN ×3 (02:06→23:44)
[2019-03-06 02:21] VITALS: BP 139/81
[2019-03-06] MEDS: AMPICILLIN/SULBACTAM 3 GM in SODIUM CHLORIDE 0.9% 100 ML IV SCH ×4 (04:09→22:22)
[2019-03-06] MEDS ORDERED: ACETAMINOPHEN 500 MG TABLET PO ONE (07:00)
[2019-03-06] MEDS ORDERED: FAMOTIDINE 20 MG TABLET PO ONE (07:00)
[2019-03-06] MEDS ORDERED: OxyconTIN ER 20 MG TAB.ER PO ONE (07:00)
[2019-03-06] MEDS ORDERED: FENTANYL PF 250 MCG/5ML ONE ×2 (07:00)
[2019-03-06] MEDS ORDERED: GABAPENTIN 300 MG CAPSULE PO ONE (07:00)
[2019-03-06] MEDS ORDERED: DEXAMETHASONE 4 MG/ML, 1ML ONE (07:15)
[2019-03-06] MEDS ORDERED: CEFAZOLIN 1,000 MG ONE (07:16)
[2019-03-06] MEDS ORDERED: PROPOFOL 10 MG/ML, 20ML ONE (07:21)
[2019-03-06] MEDS ORDERED: ROCURONIUM 10MG/ML,5ML ONE (07:22)
[2019-03-06] MEDS ORDERED: EPHEDRINE 50 MG/ML, 1ML ONE (07:23)
[2019-03-06] MEDS ORDERED: PROMETHAZINE 25 MG/ML, 1ML IV PRN (07:30)
[2019-03-06] MEDS ORDERED: ONDANSETRON 2MG/ML, 2ML IV PRN ×2 (07:30→09:30)
[2019-03-06] MEDS ORDERED: OXYcodone 5 MG/5 ML ORAL.SOL UDC PO PRN (07:30)
[2019-03-06] MEDS ORDERED: HYDROmorphone 2 MG/ML, 1ML IVPush PRN ×2 (07:30→09:30)
[2019-03-06] MEDS ORDERED: NEOSTIGMINE 1 MG/ML, 10ML ONE (07:41)
[2019-03-06] MEDS ORDERED: GLYCOPYRROLATE 0.4 MG/2 ML, 2ML ONE (07:42)
[2019-03-06] MEDS: FENTANYL PF 100 MCG/2ML IV PRN ×4 (08:11→08:34)
[2019-03-06] MEDS ORDERED: FENTANYL PF 100 MCG/2ML ONE (08:14)
[2019-03-06] MEDS ORDERED: OXYcodone 5 MG/5 ML ORAL.SOL UDC ONE (08:14)
[2019-03-06] MEDS ORDERED: KETOROLAC 30 MG/1 ML ONE (08:21)
[2019-03-06] MEDS ORDERED: KETOROLAC 30 MG/1 ML IVPush ONE (08:30)
[2019-03-06] MEDS: SENNA/DOCUSATE TABLET PO SCH (09:00)
[2019-03-06 09:15] VITALS: BP 122/72
[2019-03-06] MEDS ORDERED: HYDROcodone/APAP 7.5-325MG/15ML UDC PO PRN (09:30)
[2019-03-06] MEDS: KETOROLAC 30 MG/1 ML IV SCH ×2 (10:05→17:27)
[2019-03-06 14:00] VITALS: BP 100/65
[2019-03-06] MEDS: VANCOMYCIN 1,400 MG in SODIUM CHLORIDE 0.9% 250 ML IV SCH (14:25)
[2019-03-06] MEDS: CEFAZOLIN PMX 1GM/50ML 50 ML IVPB SCH ×2 (16:07→23:44)
[2019-03-06 20:00] VITALS: BP 110/69
[2019-03-06] MEDS: ASPIRIN 81 MG TABLET EC PO SCH (22:22)
[2019-03-07 00:09] VITALS: BP 121/70
[2019-03-07] MEDS: KETOROLAC 30 MG/1 ML IV SCH (01:55)
[2019-03-07 02:34] VITALS: BP 108/66
[2019-03-07] MEDS: AMPICILLIN/SULBACTAM 3 GM in SODIUM CHLORIDE 0.9% 100 ML IV SCH ×4 (04:23→22:03)
[2019-03-07 04:31] VITALS: BP 129/71
[2019-03-07] MEDS: OXYcodone/APAP 5/325MG TABLET PO PRN ×5 (04:44→20:45)
[2019-03-07] MEDS: ENOXAPARIN 40 MG/0.4 ML SQ SCH (06:39)
[2019-03-07 07:41] LABS: CREATININE 1.65 mg/dL (0.7-1.3)
[2019-03-07 07:42] LABS: VANCOMYCIN,TROUGH 27.9 mcg/mL (5.0-10.0)
[2019-03-07 07:56] VITALS: BP 128/72
[2019-03-07] MEDS: ASPIRIN 81 MG TABLET EC PO SCH ×2 (08:57→20:03)
[2019-03-07] MEDS: SERTRALINE 50MG TABLET PO SCH (08:57)
[2019-03-07] MEDS: SENNA/DOCUSATE TABLET PO SCH (08:57)
[2019-03-07 12:09] VITALS: BP 120/71
[2019-03-07 19:21] VITALS: BP 148/74
[2019-03-08 01:08] VITALS: BP 123/72
[2019-03-08] MEDS: OXYcodone/APAP 5/325MG TABLET PO PRN ×3 (01:31→12:31)
[2019-03-08] MEDS: NICOTINE 21 MG/24 HR PATCH.TD24 TD SCH (01:31)
[2019-03-08] MEDS: AMPICILLIN/SULBACTAM 3 GM in SODIUM CHLORIDE 0.9% 100 ML IV SCH ×4 (04:23→22:51)
[2019-03-08] MEDS: ENOXAPARIN 40 MG/0.4 ML SQ SCH (05:32)
[2019-03-08 07:55] VITALS: BP 138/81
[2019-03-08] MEDS: ASPIRIN 81 MG TABLET EC PO SCH ×2 (09:20→20:13)
[2019-03-08] MEDS: SENNA/DOCUSATE TABLET PO SCH (09:20)
[2019-03-08] MEDS: SERTRALINE 50MG TABLET PO SCH (09:21)
[2019-03-08] MEDS: VANCOMYCIN 1,400 MG in SODIUM CHLORIDE 0.9% 250 ML IV SCH (10:36)
[2019-03-08] MEDS ORDERED: ALBUTEROL SULFATE 2.5 MG/3 ML ONE (11:41)
[2019-03-08] MEDS ORDERED: ZIPRASIDONE 20 MG INJ IM PRN (12:00)
[2019-03-08] MEDS: ALBUTEROL SULFATE 2.5 MG/3 ML NPPB SCH ×3 (12:40→18:58)
[2019-03-08] MEDS ORDERED: FUROSEMIDE 40 MG/4 ML IV ONE (13:30)
[2019-03-08 13:32] LABS: O2 FLOW 10 L/min
[2019-03-08 14:29] VITALS: BP 148/83
[2019-03-08 15:00] LABS: BASOPHILS # (AUTO) 0.01 x10^3/uL (0-0.1); BASOPHILS % (AUTO) 0 % (0-1); EOSINOPHILS # (AUTO) 0.22 x10^3/uL (0-0.4); EOSINOPHILS % (AUTO) 2 % (1-7); LYMPHOCYTES # (AUTO) 0.73 x10^3/uL (1-3.4); LYMPHOCYTES % (AUTO) 5 % (22-44); MD NO; MEAN CORPUSCULAR HEMOGLOBIN 31.1 pg (27.5-34.5); MEAN CORPUSCULAR HGB CONC 32.9 g/dL (33.2-36.2); MEAN CORPUSCULAR VOLUME 94.4 fL (81-97); MEAN PLATELET VOLUME 6.4 fL (7.4-10.4); MONOCYTES # (AUTO) 0.32 x10^3/uL (0.2-0.8); MONOCYTES % (AUTO) 2 % (2-9); NEUTROPHILS # (AUTO) 13.44 x10^3/uL (1.8-6.8); NEUTROPHILS % (AUTO) 91 % (42-75); PLATELET COUNT 318 x10^3/uL (130-400); RED BLOOD COUNT 3.07 x10^6/uL (4.38-5.82); RED CELL DISTRIBUTION WIDTH 14.9 % (9.4-14.8)
[2019-03-08 15:09] LABS: ALBUMIN 1.9 g/dL (3.4-5.0); ANION GAP 5 mmol/L (5-15); CALCIUM 8.2 mg/dL (8.5-10.1); CHLORIDE 102 mmol/L (98-107)
[2019-03-08 15:12] LABS: ALANINE AMINOTRANSFERASE 10 U/L (12-78); ALKALINE PHOSPHATASE 82 U/L (45-117); BILIRUBIN,TOTAL 0.3 mg/dL (0.2-1.0); CREATININE 1.37 mg/dL (0.7-1.3); TOTAL PROTEIN 6.2 g/dL (6.4-8.2)
[2019-03-08] MEDS: POTASSIUM CHLORIDE 20 MEQ TAB.ER.PRT PO SCH (17:00)
[2019-03-08] MEDS ORDERED: OMNIPAQUE 350 MG/ML, 100ML BOTTLE ONE (18:08)
[2019-03-08 20:00] VITALS: BP 135/71
[2019-03-09] MEDS: NICOTINE 21 MG/24 HR PATCH.TD24 TD SCH (01:52)
[2019-03-09] MEDS: AMPICILLIN/SULBACTAM 3 GM in SODIUM CHLORIDE 0.9% 100 ML IV SCH ×4 (04:36→22:07)
[2019-03-09] MEDS: ENOXAPARIN 40 MG/0.4 ML SQ SCH (06:04)
[2019-03-09] MEDS: ALBUTEROL SULFATE 2.5 MG/3 ML NPPB SCH ×5 (08:16→22:40)
[2019-03-09] MEDS: ASPIRIN 81 MG TABLET EC PO SCH ×2 (09:35→20:59)
[2019-03-09] MEDS: SENNA/DOCUSATE TABLET PO SCH (09:35)
[2019-03-09] MEDS: SERTRALINE 50MG TABLET PO SCH (09:35)
[2019-03-09] MEDS: POTASSIUM CHLORIDE 20 MEQ TAB.ER.PRT PO SCH (09:35)
[2019-03-09] MEDS: INSULIN LISPRO 100 UNITS/ML, PEN SQ-INSULIN SCH ×3 (12:16→21:00)
[2019-03-09] MEDS: OXYcodone/APAP 5/325MG TABLET PO PRN ×2 (12:51→18:59)
[2019-03-09 14:19] VITALS: BP 149/80
[2019-03-09 20:21] VITALS: BP 134/77
[2019-03-09 21:37] LABS: CLOSTRIDIUM DIFFICILE ANTIGEN NEGATIVE; CLOSTRIDIUM DIFFICILE TOXIN NEGATIVE (Negative)
[2019-03-09] MEDS: VANCOMYCIN 1,400 MG in SODIUM CHLORIDE 0.9% 250 ML IV SCH (22:33)
[2019-03-10 00:49] VITALS: BP 135/78
[2019-03-10] MEDS: OXYcodone/APAP 5/325MG TABLET PO PRN ×3 (02:25→11:49)
[2019-03-10] MEDS: NICOTINE 21 MG/24 HR PATCH.TD24 TD SCH (02:26)
[2019-03-10] MEDS: AMPICILLIN/SULBACTAM 3 GM in SODIUM CHLORIDE 0.9% 100 ML IV SCH ×2 (03:44→10:05)
[2019-03-10] MEDS: ENOXAPARIN 40 MG/0.4 ML SQ SCH (05:42)
[2019-03-10 05:51] LABS: MEAN CORPUSCULAR HGB CONC 32.6 g/dL (33.2-36.2); MEAN CORPUSCULAR VOLUME 95.1 fL (81-97); MEAN PLATELET VOLUME 7.2 fL (7.4-10.4); PLATELET COUNT 314 x10^3/uL (130-400); RED BLOOD COUNT 2.98 x10^6/uL (4.38-5.82); RED CELL DISTRIBUTION WIDTH 14.8 % (9.4-14.8)
[2019-03-10 05:57] LABS: ANION GAP 6 mmol/L (5-15); CHLORIDE 101 mmol/L (98-107); CREATININE 1.27 mg/dL (0.7-1.3)
[2019-03-10 06:18] LABS: BASOPHILS # (AUTO) 0.01 x10^3/uL (0-0.1); BASOPHILS % (AUTO) 0 % (0-1); EOSINOPHILS # (AUTO) 0.05 x10^3/uL (0-0.4); EOSINOPHILS % (AUTO) 0 % (1-7); LYMPHOCYTES # (AUTO) 0.94 x10^3/uL (1-3.4); LYMPHOCYTES % (AUTO) 6 % (22-44); MD SCAN; MONOCYTES # (AUTO) 0.71 x10^3/uL (0.2-0.8); MONOCYTES % (AUTO) 5 % (2-9); NEUTROPHILS # (AUTO) 13.55 x10^3/uL (1.8-6.8); NEUTROPHILS % (AUTO) 89 % (42-75)
[2019-03-10] MEDS: ASPIRIN 81 MG TABLET EC PO SCH ×2 (07:50→20:10)
[2019-03-10] MEDS: SERTRALINE 50MG TABLET PO SCH (07:50)
[2019-03-10] MEDS: SENNA/DOCUSATE TABLET PO SCH (07:50)
[2019-03-10] MEDS: INSULIN LISPRO 100 UNITS/ML, PEN SQ-INSULIN SCH ×4 (07:50→20:49)
[2019-03-10 08:27] VITALS: BP 146/81
[2019-03-10 13:20] VITALS: BP 155/82
[2019-03-10] MEDS ORDERED: FUROSEMIDE 40 MG/4 ML IV ONE (16:30)
[2019-03-10] MEDS ORDERED: FUROSEMIDE 20 MG/2 ML ONE (16:34)
[2019-03-10] MEDS ORDERED: FUROSEMIDE 40 MG/4 ML ONE (16:34)
[2019-03-10] MEDS: PIPERACILLIN/TAZO/PMX 3.375GM 50 ML IV SCH ×2 (20:06→23:18)
[2019-03-11] MEDS ORDERED: FUROSEMIDE 20 MG/2 ML IV ONE
[2019-03-11] MEDS: NICOTINE 21 MG/24 HR PATCH.TD24 TD SCH (00:14)
[2019-03-11 04:30] VITALS: BP 140/64
[2019-03-11 04:59] LABS: MEAN CORPUSCULAR HEMOGLOBIN 31.7 pg (27.5-34.5); MEAN CORPUSCULAR HGB CONC 33.6 g/dL (33.2-36.2); MEAN CORPUSCULAR VOLUME 94.3 fL (81-97); MEAN PLATELET VOLUME 7.5 fL (7.4-10.4); PLATELET COUNT 341 x10^3/uL (130-400); RED BLOOD COUNT 2.93 x10^6/uL (4.38-5.82); RED CELL DISTRIBUTION WIDTH 14.8 % (9.4-14.8)
[2019-03-11 05:00] LABS: ANION GAP 9 mmol/L (5-15); CALCIUM 8.2 mg/dL (8.5-10.1); CHLORIDE 97 mmol/L (98-107); CREATININE 1.29 mg/dL (0.7-1.3)
[2019-03-11 05:43] LABS: BASOPHILS # (AUTO) 0.03 x10^3/uL (0-0.1); BASOPHILS % (AUTO) 0 % (0-1); EOSINOPHILS # (AUTO) 0.13 x10^3/uL (0-0.4); EOSINOPHILS % (AUTO) 1 % (1-7); LYMPHOCYTES # (AUTO) 1.34 x10^3/uL (1-3.4); LYMPHOCYTES % (AUTO) 8 % (22-44); MD SCAN; MONOCYTES % (AUTO) 4 % (2-9); NEUTROPHILS # (AUTO) 13.85 x10^3/uL (1.8-6.8); NEUTROPHILS % (AUTO) 86 % (42-75)
[2019-03-11] MEDS: PIPERACILLIN/TAZO/PMX 3.375GM 50 ML IV SCH ×3 (05:51→16:12)
[2019-03-11] MEDS: ENOXAPARIN 40 MG/0.4 ML SQ SCH (05:52)
[2019-03-11] MEDS: INSULIN LISPRO 100 UNITS/ML, PEN SQ-INSULIN SCH ×4 (05:53→21:02)
[2019-03-11] MEDS: SENNA/DOCUSATE TABLET PO SCH (10:35)
[2019-03-11] MEDS: ASPIRIN 81 MG TABLET EC PO SCH ×2 (10:35→20:57)
[2019-03-11] MEDS: SERTRALINE 50MG TABLET PO SCH (10:35)
[2019-03-11] MEDS: VANCOMYCIN 1,400 MG in SODIUM CHLORIDE 0.9% 250 ML IV SCH (10:35)
[2019-03-11] MEDS: OXYcodone/APAP 5/325MG TABLET PO PRN (16:11)
[2019-03-12] MEDS: PIPERACILLIN/TAZO/PMX 3.375GM 50 ML IV SCH ×4 (00:01→18:01)
[2019-03-12] MEDS: OXYcodone/APAP 5/325MG TABLET PO PRN ×5 (00:12→21:44)
[2019-03-12] MEDS: NICOTINE 21 MG/24 HR PATCH.TD24 TD SCH (01:16)
[2019-03-12] MEDS: ALBUTEROL SULFATE 2.5 MG/3 ML NPPB PRN ×2 (04:18→12:23)
[2019-03-12 05:00] VITALS: BP 120/70
[2019-03-12 05:11] LABS: BASOPHILS # (AUTO) 0.03 x10^3/uL (0-0.1); BASOPHILS % (AUTO) 0 % (0-1); EOSINOPHILS # (AUTO) 0.23 x10^3/uL (0-0.4); EOSINOPHILS % (AUTO) 2 % (1-7); LYMPHOCYTES # (AUTO) 1.59 x10^3/uL (1-3.4); LYMPHOCYTES % (AUTO) 14 % (22-44); MD NO; MEAN CORPUSCULAR HEMOGLOBIN 31.1 pg (27.5-34.5); MEAN CORPUSCULAR HGB CONC 32.7 g/dL (33.2-36.2); MEAN CORPUSCULAR VOLUME 95.2 fL (81-97); MEAN PLATELET VOLUME 7.8 fL (7.4-10.4); MONOCYTES # (AUTO) 0.54 x10^3/uL (0.2-0.8); MONOCYTES % (AUTO) 5 % (2-9); NEUTROPHILS # (AUTO) 9.03 x10^3/uL (1.8-6.8); NEUTROPHILS % (AUTO) 79 % (42-75); PLATELET COUNT 339 x10^3/uL (130-400); RED BLOOD COUNT 3.05 x10^6/uL (4.38-5.82); RED CELL DISTRIBUTION WIDTH 14.8 % (9.4-14.8)
[2019-03-12] MEDS: ENOXAPARIN 40 MG/0.4 ML SQ SCH (06:25)
[2019-03-12] MEDS: INSULIN LISPRO 100 UNITS/ML, PEN SQ-INSULIN SCH ×4 (07:00→20:10)
[2019-03-12] MEDS: SENNA/DOCUSATE TABLET PO SCH (09:00)
[2019-03-12] MEDS: ASPIRIN 81 MG TABLET EC PO SCH ×2 (09:57→20:07)
[2019-03-12] MEDS: SERTRALINE 50MG TABLET PO SCH (09:57)
[2019-03-12] MEDS ORDERED: FUROSEMIDE 40 MG/4 ML IV ONE ×2 (10:30→18:00)
[2019-03-12] MEDS: VANCOMYCIN 1,400 MG in SODIUM CHLORIDE 0.9% 250 ML IV SCH (22:39)
[2019-03-13] MEDS: PIPERACILLIN/TAZO/PMX 3.375GM 50 ML IV SCH ×5 (00:41→23:05)
[2019-03-13] MEDS: NICOTINE 21 MG/24 HR PATCH.TD24 TD SCH (00:46)
[2019-03-13] MEDS: OXYcodone/APAP 5/325MG TABLET PO PRN ×4 (04:24→17:14)
[2019-03-13 05:45] VITALS: BP 137/73
[2019-03-13] MEDS: INSULIN LISPRO 100 UNITS/ML, PEN SQ-INSULIN SCH ×4 (07:00→21:00)
[2019-03-13] MEDS ORDERED: ETOMIDATE 20 MG/10 ML ONE (08:00)
[2019-03-13] MEDS ORDERED: MIDAZOLAM 1 MG/ML, 5ML ONE (08:00)
[2019-03-13] MEDS ORDERED: PROPOFOL 100 ML IV ONE (08:00)
[2019-03-13] MEDS: SERTRALINE 50MG TABLET PO SCH (08:25)
[2019-03-13] MEDS: ASPIRIN 81 MG TABLET EC PO SCH ×2 (08:27→21:18)
[2019-03-13] MEDS: ENOXAPARIN 40 MG/0.4 ML SQ SCH (08:27)
[2019-03-13] MEDS: SENNA/DOCUSATE TABLET PO SCH (08:27)
--- NOTE | 2019-03-13 09:56 | NUR ---
Tf goal in 03/13 RD note if needed postop
[2019-03-13] MEDS ORDERED: LIDOCAINE-MPF 1%, 2ML ENDO PRN (16:00)
[2019-03-13] MEDS: FAMOTIDINE 20 MG/2 ML IV SCH (17:12)
[2019-03-13] MEDS: PROPOFOL 100 ML IV PRN (17:15)
[2019-03-13 17:31] LABS: FIO2 97.8 %
[2019-03-13] MEDS ORDERED: ASPIRIN 81 MG TABLET CHEW PO SCH (21:39)
[2019-03-14] MEDS: NICOTINE 21 MG/24 HR PATCH.TD24 TD SCH (00:38)
[2019-03-14] MEDS: FAMOTIDINE 20 MG/2 ML IV SCH ×2 (04:05→21:01)
[2019-03-14] MEDS: PROPOFOL 100 ML IV PRN (04:05)
[2019-03-14 04:24] LABS: BASOPHILS # (AUTO) 0.08 x10^3/uL (0-0.1); BASOPHILS % (AUTO) 1 % (0-1); EOSINOPHILS % (AUTO) 3 % (1-7); LYMPHOCYTES # (AUTO) 1.65 x10^3/uL (1-3.4); LYMPHOCYTES % (AUTO) 18 % (22-44); MD NO; MEAN CORPUSCULAR HEMOGLOBIN 31.7 pg (27.5-34.5); MEAN CORPUSCULAR HGB CONC 33.6 g/dL (33.2-36.2); MEAN CORPUSCULAR VOLUME 94.5 fL (81-97); MEAN PLATELET VOLUME 7.4 fL (7.4-10.4); MONOCYTES # (AUTO) 0.42 x10^3/uL (0.2-0.8); MONOCYTES % (AUTO) 5 % (2-9); NEUTROPHILS # (AUTO) 6.63 x10^3/uL (1.8-6.8); NEUTROPHILS % (AUTO) 73 % (42-75); PLATELET COUNT 311 x10^3/uL (130-400); RED BLOOD COUNT 2.56 x10^6/uL (4.38-5.82); RED CELL DISTRIBUTION WIDTH 15.2 % (9.4-14.8)
[2019-03-14 04:35] LABS: ANION GAP 8 mmol/L (5-15); CHLORIDE 96 mmol/L (98-107); CREATININE 2.03 mg/dL (0.7-1.3)
[2019-03-14 05:07] VITALS: BP 125/72
[2019-03-14] MEDS: PIPERACILLIN/TAZO/PMX 3.375GM 50 ML IV SCH ×4 (05:43→23:57)
[2019-03-14] MEDS: ENOXAPARIN 40 MG/0.4 ML SQ SCH (05:44)
[2019-03-14] MEDS: INSULIN LISPRO 100 UNITS/ML, PEN SQ-INSULIN SCH ×4 (06:38→22:34)
[2019-03-14] MEDS: OXYcodone/APAP 5/325MG TABLET PO PRN ×4 (07:53→23:58)
[2019-03-14] MEDS: ASPIRIN 81 MG TABLET CHEW PO SCH ×2 (07:53→21:01)
[2019-03-14] MEDS: SERTRALINE 50MG TABLET PO SCH (07:53)
[2019-03-14] MEDS: SENNA/DOCUSATE TABLET PO SCH (07:54)
[2019-03-14] MEDS: VANCOMYCIN 1,400 MG in SODIUM CHLORIDE 0.9% 250 ML IV SCH (10:06)
[2019-03-14] MEDS ORDERED: FAMOTIDINE 20 MG/2 ML IVPush ONE (13:30)
[2019-03-14] MEDS: SODIUM CHLORIDE 0.9% 1,000 ML IV SCH (14:34)
[2019-03-15] MEDS: NICOTINE 21 MG/24 HR PATCH.TD24 TD SCH (00:09)
[2019-03-15 05:00] VITALS: BP 136/74
[2019-03-15] MEDS: INSULIN LISPRO 100 UNITS/ML, PEN SQ-INSULIN SCH ×4 (05:00→21:18)
[2019-03-15 05:01] LABS: ANION GAP 8 mmol/L (5-15); CALCIUM 7.7 mg/dL (8.5-10.1); CHLORIDE 98 mmol/L (98-107)
[2019-03-15 05:02] LABS: BASOPHILS # (AUTO) 0.04 x10^3/uL (0-0.1); BASOPHILS % (AUTO) 0 % (0-1); CREATININE 2.25 mg/dL (0.7-1.3); EOSINOPHILS # (AUTO) 0.25 x10^3/uL (0-0.4); EOSINOPHILS % (AUTO) 3 % (1-7); LYMPHOCYTES # (AUTO) 1.61 x10^3/uL (1-3.4); LYMPHOCYTES % (AUTO) 16 % (22-44); MD NO; MEAN CORPUSCULAR HEMOGLOBIN 31.9 pg (27.5-34.5); MEAN CORPUSCULAR HGB CONC 33.6 g/dL (33.2-36.2); MEAN CORPUSCULAR VOLUME 95.1 fL (81-97); MEAN PLATELET VOLUME 7.5 fL (7.4-10.4); MONOCYTES # (AUTO) 0.45 x10^3/uL (0.2-0.8); MONOCYTES % (AUTO) 5 % (2-9); NEUTROPHILS # (AUTO) 7.53 x10^3/uL (1.8-6.8); NEUTROPHILS % (AUTO) 76 % (42-75); PLATELET COUNT 305 x10^3/uL (130-400); RED BLOOD COUNT 2.49 x10^6/uL (4.38-5.82); RED CELL DISTRIBUTION WIDTH 14.9 % (9.4-14.8)
[2019-03-15] MEDS: ENOXAPARIN 40 MG/0.4 ML SQ SCH (06:35)
[2019-03-15] MEDS: PIPERACILLIN/TAZO/PMX 3.375GM 50 ML IV SCH ×4 (06:35→23:38)
[2019-03-15] MEDS ORDERED: LOPERAMIDE 1 MG/5 ML, 10ML UDC PO ONE (08:30)
[2019-03-15] MEDS ORDERED: FUROSEMIDE 40 MG/4 ML IV ONE (08:30)
[2019-03-15] MEDS: OXYcodone/APAP 5/325MG TABLET PO PRN ×3 (08:32→21:58)
[2019-03-15] MEDS: SENNA/DOCUSATE TABLET PO SCH (08:33)
[2019-03-15] MEDS: SODIUM CHLORIDE 0.9% 1,000 ML IV SCH (08:33)
[2019-03-15] MEDS: SERTRALINE 50MG TABLET PO SCH (08:33)
[2019-03-15] MEDS: ASPIRIN 81 MG TABLET CHEW PO SCH ×2 (08:33→20:58)
[2019-03-15] MEDS: FAMOTIDINE 20 MG/2 ML IV SCH (20:58)
[2019-03-16] MEDS: NICOTINE 21 MG/24 HR PATCH.TD24 TD SCH (01:25)
[2019-03-16] MEDS: INSULIN LISPRO 100 UNITS/ML, PEN SQ-INSULIN SCH ×4 (04:00→21:47)
[2019-03-16 04:31] LABS: BASOPHILS # (AUTO) 0.06 x10^3/uL (0-0.1); BASOPHILS % (AUTO) 1 % (0-1); EOSINOPHILS # (AUTO) 0.24 x10^3/uL (0-0.4); EOSINOPHILS % (AUTO) 3 % (1-7); LYMPHOCYTES # (AUTO) 1.66 x10^3/uL (1-3.4); LYMPHOCYTES % (AUTO) 20 % (22-44); MD NO; MEAN CORPUSCULAR HGB CONC 33.5 g/dL (33.2-36.2); MEAN CORPUSCULAR VOLUME 95.5 fL (81-97); MEAN PLATELET VOLUME 7.3 fL (7.4-10.4); MONOCYTES # (AUTO) 0.46 x10^3/uL (0.2-0.8); MONOCYTES % (AUTO) 6 % (2-9); NEUTROPHILS % (AUTO) 71 % (42-75); PLATELET COUNT 280 x10^3/uL (130-400); RED BLOOD COUNT 2.54 x10^6/uL (4.38-5.82); RED CELL DISTRIBUTION WIDTH 15.9 % (9.4-14.8)
[2019-03-16 04:43] LABS: ANION GAP 6 mmol/L (5-15); CALCIUM 7.7 mg/dL (8.5-10.1); CHLORIDE 100 mmol/L (98-107); CREATININE 2.22 mg/dL (0.7-1.3)
[2019-03-16] MEDS: SODIUM CHLORIDE 0.9% 1,000 ML IV SCH (05:39)
[2019-03-16] MEDS: PIPERACILLIN/TAZO/PMX 3.375GM 50 ML IV SCH ×3 (05:39→18:11)
[2019-03-16] MEDS: ENOXAPARIN 40 MG/0.4 ML SQ SCH (05:39)
[2019-03-16] MEDS: SENNA/DOCUSATE TABLET PO SCH (07:44)
[2019-03-16] MEDS: ASPIRIN 81 MG TABLET CHEW PO SCH ×2 (09:27→21:37)
[2019-03-16] MEDS: SERTRALINE 50MG TABLET PO SCH (09:27)
[2019-03-16] MEDS: OXYcodone/APAP 5/325MG TABLET PO PRN (11:49)
[2019-03-16] MEDS ORDERED: LORazepam 2 MG/ML, 1ML ONE (12:55)
[2019-03-16] MEDS: LORazepam 2 MG/ML, 1ML IVPush PRN ×2 (12:59→16:51)
[2019-03-16] MEDS: FAMOTIDINE 20 MG/2 ML IV SCH (21:37)
[2019-03-16] MEDS: LORazepam 2 MG/ML, 1ML IVPush SCH (21:37)
[2019-03-17] MEDS: NICOTINE 21 MG/24 HR PATCH.TD24 TD SCH (00:37)
[2019-03-17] MEDS: PIPERACILLIN/TAZO/PMX 3.375GM 50 ML IV SCH ×4 (00:38→17:29)
[2019-03-17] MEDS: LORazepam 2 MG/ML, 1ML IVPush SCH ×6 (00:41→21:49)
[2019-03-17] MEDS: INSULIN LISPRO 100 UNITS/ML, PEN SQ-INSULIN SCH ×4 (03:56→21:59)
[2019-03-17 04:29] LABS: BASOPHILS # (AUTO) 0.06 x10^3/uL (0-0.1); BASOPHILS % (AUTO) 1 % (0-1); EOSINOPHILS # (AUTO) 0.24 x10^3/uL (0-0.4); EOSINOPHILS % (AUTO) 3 % (1-7); LYMPHOCYTES # (AUTO) 1.49 x10^3/uL (1-3.4); LYMPHOCYTES % (AUTO) 17 % (22-44); MD NO; MEAN CORPUSCULAR HEMOGLOBIN 30.4 pg (27.5-34.5); MEAN CORPUSCULAR HGB CONC 32.2 g/dL (33.2-36.2); MEAN CORPUSCULAR VOLUME 94.3 fL (81-97); MEAN PLATELET VOLUME 7.2 fL (7.4-10.4); MONOCYTES # (AUTO) 0.56 x10^3/uL (0.2-0.8); MONOCYTES % (AUTO) 6 % (2-9); NEUTROPHILS % (AUTO) 73 % (42-75); PLATELET COUNT 277 x10^3/uL (130-400); RED BLOOD COUNT 2.49 x10^6/uL (4.38-5.82); RED CELL DISTRIBUTION WIDTH 16.3 % (9.4-14.8)
[2019-03-17 08:04] LABS: ALANINE AMINOTRANSFERASE 7 U/L (12-78); ALBUMIN 1.4 g/dL (3.4-5.0); ANION GAP 4 mmol/L (5-15); CHLORIDE 100 mmol/L (98-107)
[2019-03-17 08:06] LABS: ALKALINE PHOSPHATASE 69 U/L (45-117); BILIRUBIN,TOTAL 0.4 mg/dL (0.2-1.0); CREATININE 2.23 mg/dL (0.7-1.3); TOTAL PROTEIN 5.9 g/dL (6.4-8.2)
[2019-03-17] MEDS ORDERED: MICROFIBRILLAR COLLAGEN 0.5GM/PACK TP ONE (08:30)
[2019-03-17] MEDS: SENNA/DOCUSATE TABLET PO SCH (09:00)
[2019-03-17] MEDS: ASPIRIN 81 MG TABLET CHEW PO SCH ×2 (09:40→20:56)
[2019-03-17] MEDS: SERTRALINE 50MG TABLET PO SCH (09:40)
[2019-03-17] MEDS: ALBUMIN HUMAN 25% 100 ML IV SCH ×2 (10:34→18:08)
[2019-03-17] MEDS: FUROSEMIDE 20 MG/2 ML IV SCH ×2 (11:44→20:55)
[2019-03-17] MEDS ORDERED: POTASSIUM CHLORIDE 20 MEQ in SODIUM CHLORIDE 0.9% 250 ML IV ONE (12:30)
[2019-03-17] MEDS: LOPERAMIDE 2 MG CAPSULE PO PRN (14:10)
[2019-03-17 16:18] LABS: ANION GAP 5 mmol/L (5-15); CHLORIDE 100 mmol/L (98-107); CREATININE 2.25 mg/dL (0.7-1.3)
[2019-03-17] MEDS: FAMOTIDINE 20 MG/2 ML IV SCH (20:55)
[2019-03-17] MEDS: ACETYLCYSTEINE 600 MG CAPSULE PO SCH (20:56)
[2019-03-18] MEDS: PIPERACILLIN/TAZO/PMX 3.375GM 50 ML IV SCH ×2 (00:16→05:40)
[2019-03-18] MEDS: NICOTINE 21 MG/24 HR PATCH.TD24 TD SCH (01:55)
[2019-03-18] MEDS: ALBUMIN HUMAN 25% 100 ML IV SCH (02:10)
[2019-03-18] MEDS: LORazepam 2 MG/ML, 1ML IVPush SCH ×6 (03:12→23:14)
[2019-03-18] MEDS: FUROSEMIDE 20 MG/2 ML IV SCH (04:03)
[2019-03-18 04:20] LABS: MEAN CORPUSCULAR HEMOGLOBIN 30.6 pg (27.5-34.5); MEAN CORPUSCULAR HGB CONC 32.2 g/dL (33.2-36.2); MEAN PLATELET VOLUME 7.4 fL (7.4-10.4); PLATELET COUNT 240 x10^3/uL (130-400); RED BLOOD COUNT 2.08 x10^6/uL (4.38-5.82); RED CELL DISTRIBUTION WIDTH 17.7 % (9.4-14.8)
[2019-03-18 04:30] LABS: ANION GAP 8 mmol/L (5-15); CALCIUM 7.9 mg/dL (8.5-10.1); CHLORIDE 100 mmol/L (98-107); CREATININE 2.33 mg/dL (0.7-1.3)
[2019-03-18] MEDS: INSULIN LISPRO 100 UNITS/ML, PEN SQ-INSULIN SCH ×4 (05:40→22:10)
[2019-03-18 05:49] LABS: BASOPHILS # (AUTO) 0.04 x10^3/uL (0-0.1); BASOPHILS % (AUTO) 1 % (0-1); EOSINOPHILS # (AUTO) 0.19 x10^3/uL (0-0.4); EOSINOPHILS % (AUTO) 3 % (1-7); LYMPHOCYTES # (AUTO) 1.46 x10^3/uL (1-3.4); LYMPHOCYTES % (AUTO) 19 % (22-44); MD SCAN; MONOCYTES # (AUTO) 0.63 x10^3/uL (0.2-0.8); MONOCYTES % (AUTO) 8 % (2-9); NEUTROPHILS # (AUTO) 5.36 x10^3/uL (1.8-6.8); NEUTROPHILS % (AUTO) 70 % (42-75)
[2019-03-18] MEDS ORDERED: MICROFIBRILLAR COLLAGEN 0.5GM/PACK TP ONE (08:30)
[2019-03-18] MEDS ORDERED: FENTANYL PF 100 MCG/2ML ONE (09:02)
[2019-03-18] MEDS ORDERED: MIDAZOLAM 1 MG/ML, 5ML ONE (09:02)
[2019-03-18] MEDS ORDERED: MICROFIBRILLAR COLLAGEN 1 GM TP ONE (09:30)
[2019-03-18] MEDS ORDERED: FENTANYL PF 100 MCG/2ML IVPush ONE (10:00)
[2019-03-18] MEDS ORDERED: MIDAZOLAM 1 MG/ML, 5ML IVPush ONE (10:00)
[2019-03-18] MEDS: SERTRALINE 50MG TABLET PO SCH (10:13)
[2019-03-18] MEDS: ASPIRIN 81 MG TABLET CHEW PO SCH (10:13)
[2019-03-18] MEDS: ACETYLCYSTEINE 600 MG CAPSULE PO SCH ×4 (10:13→21:09)
[2019-03-18 10:44] VITALS: BP 136/72
[2019-03-18 11:00] VITALS: BP 125/65
[2019-03-18] MEDS: SODIUM CHLORIDE INHALATION 7%, 4 ML NPPB SCH ×2 (11:00→23:00)
[2019-03-18] MEDS: CEFTRIAXONE PMX 2GM/50ML 50 ML IVPB SCH (11:46)
[2019-03-18] MEDS: OXYcodone/APAP 5/325MG TABLET PO PRN ×2 (12:40→17:16)
[2019-03-18] MEDS: PROPOFOL 100 ML IV PRN (13:24)
[2019-03-18 13:28] VITALS: BP 110/61
[2019-03-18 14:30] VITALS: BP 114/60
[2019-03-18] MEDS: FAMOTIDINE 20 MG/2 ML IV SCH (21:09)
[2019-03-19] MEDS: NICOTINE 21 MG/24 HR PATCH.TD24 TD SCH (00:26)
[2019-03-19] MEDS: OXYcodone/APAP 5/325MG TABLET PO PRN ×2 (00:27→17:10)
[2019-03-19] MEDS: LORazepam 2 MG/ML, 1ML IVPush SCH ×6 (02:40→22:30)
[2019-03-19] MEDS: INSULIN LISPRO 100 UNITS/ML, PEN SQ-INSULIN SCH ×4 (04:00→21:38)
[2019-03-19 04:57] LABS: ANION GAP 8 mmol/L (5-15); CALCIUM 7.9 mg/dL (8.5-10.1); CHLORIDE 102 mmol/L (98-107); CREATININE 2.43 mg/dL (0.7-1.3)
[2019-03-19 04:59] LABS: MEAN CORPUSCULAR HEMOGLOBIN 32.2 pg (27.5-34.5); MEAN CORPUSCULAR HGB CONC 34.1 g/dL (33.2-36.2); MEAN CORPUSCULAR VOLUME 94.4 fL (81-97); MEAN PLATELET VOLUME 7.7 fL (7.4-10.4); PLATELET COUNT 272 x10^3/uL (130-400); RED BLOOD COUNT 2.68 x10^6/uL (4.38-5.82); RED CELL DISTRIBUTION WIDTH 17.4 % (9.4-14.8)
[2019-03-19 05:00] LABS: C-REACTIVE PROTEIN, QUANT 8.5 mg/dL (0.02-0.49)
[2019-03-19 05:54] LABS: BASOPHILS # (AUTO) 0.06 x10^3/uL (0-0.1); BASOPHILS % (AUTO) 1 % (0-1); EOSINOPHILS # (AUTO) 0.42 x10^3/uL (0-0.4); EOSINOPHILS % (AUTO) 4 % (1-7); LYMPHOCYTES % (AUTO) 16 % (22-44); MD SCAN; MONOCYTES % (AUTO) 6 % (2-9); NEUTROPHILS # (AUTO) 8.04 x10^3/uL (1.8-6.8); NEUTROPHILS % (AUTO) 74 % (42-75)
[2019-03-19 06:11] LABS: HCT (SEDRATE) 25.3 % (39.2-51.8)
[2019-03-19] MEDS: SODIUM CHLORIDE INHALATION 7%, 4 ML NPPB SCH ×2 (09:00→18:33)
[2019-03-19] MEDS: ASPIRIN 81 MG TABLET CHEW PO SCH (09:03)
[2019-03-19] MEDS: ACETYLCYSTEINE 600 MG CAPSULE PO SCH ×2 (09:03→21:37)
[2019-03-19] MEDS: SERTRALINE 50MG TABLET PO SCH (09:03)
[2019-03-19] MEDS: PROPOFOL 100 ML IV PRN ×2 (11:28→18:05)
[2019-03-19] MEDS: CEFTRIAXONE PMX 2GM/50ML 50 ML IVPB SCH (11:47)
[2019-03-19] MEDS: FAMOTIDINE 20 MG/2 ML IV SCH (21:37)
[2019-03-20] MEDS: NICOTINE 21 MG/24 HR PATCH.TD24 TD SCH (01:32)
[2019-03-20] MEDS: LORazepam 2 MG/ML, 1ML IVPush SCH ×2 (02:30→05:55)
[2019-03-20] MEDS: PROPOFOL 100 ML IV PRN ×3 (03:27→18:27)
[2019-03-20] MEDS: INSULIN LISPRO 100 UNITS/ML, PEN SQ-INSULIN SCH ×4 (03:41→22:00)
[2019-03-20 04:04] LABS: ANION GAP 6 mmol/L (5-15); CHLORIDE 102 mmol/L (98-107); CREATININE 2.47 mg/dL (0.7-1.3)
[2019-03-20 04:20] LABS: BASOPHILS # (AUTO) 0.03 x10^3/uL (0-0.1); BASOPHILS % (AUTO) 0 % (0-1); EOSINOPHILS # (AUTO) 0.58 x10^3/uL (0-0.4); EOSINOPHILS % (AUTO) 5 % (1-7); LYMPHOCYTES # (AUTO) 1.91 x10^3/uL (1-3.4); LYMPHOCYTES % (AUTO) 17 % (22-44); MD NO; MEAN CORPUSCULAR HEMOGLOBIN 31.5 pg (27.5-34.5); MEAN CORPUSCULAR HGB CONC 32.8 g/dL (33.2-36.2); MEAN CORPUSCULAR VOLUME 96.1 fL (81-97); MEAN PLATELET VOLUME 7.7 fL (7.4-10.4); MONOCYTES % (AUTO) 9 % (2-9); NEUTROPHILS # (AUTO) 7.82 x10^3/uL (1.8-6.8); NEUTROPHILS % (AUTO) 69 % (42-75); PLATELET COUNT 329 x10^3/uL (130-400); RED BLOOD COUNT 2.49 x10^6/uL (4.38-5.82); RED CELL DISTRIBUTION WIDTH 17.7 % (9.4-14.8)
[2019-03-20] MEDS: OXYcodone/APAP 5/325MG TABLET PO PRN ×3 (04:23→22:00)
[2019-03-20] MEDS: ASPIRIN 81 MG TABLET CHEW PO SCH (08:09)
[2019-03-20] MEDS: LOPERAMIDE 2 MG CAPSULE PO PRN (08:09)
[2019-03-20] MEDS: SERTRALINE 50MG TABLET PO SCH (08:09)
[2019-03-20] MEDS: ACETYLCYSTEINE 600 MG CAPSULE PO SCH ×2 (08:09→21:59)
[2019-03-20] MEDS: SODIUM CHLORIDE INHALATION 7%, 4 ML NPPB SCH ×2 (08:55→22:00)
[2019-03-20] MEDS: BUDESONIDE 0.5 MG/2 ML INHA INH SCH ×2 (09:30→22:00)
[2019-03-20] MEDS: HEPARIN 5,000 UNITS/ML, 1ML SQ SCH ×2 (11:02→19:33)
[2019-03-20] MEDS: CEFTRIAXONE PMX 2GM/50ML 50 ML IVPB SCH (12:07)
[2019-03-20] MEDS: ALBUTEROL SULFATE 2.5 MG/3 ML NPPB SCH ×2 (15:00→22:00)
[2019-03-20] MEDS: FAMOTIDINE 20 MG/2 ML IV SCH (22:02)
[2019-03-21] MEDS: NICOTINE 21 MG/24 HR PATCH.TD24 TD SCH (00:16)
[2019-03-21] MEDS: HEPARIN 5,000 UNITS/ML, 1ML SQ SCH ×3 (02:22→17:38)
[2019-03-21] MEDS: PROPOFOL 100 ML IV PRN ×2 (02:23→10:09)
[2019-03-21] MEDS: ALBUTEROL SULFATE 2.5 MG/3 ML NPPB SCH ×2 (02:31→08:20)
[2019-03-21] MEDS: SODIUM CHLORIDE INHALATION 7%, 4 ML NPPB SCH ×2 (02:31→08:20)
[2019-03-21] MEDS: INSULIN LISPRO 100 UNITS/ML, PEN SQ-INSULIN SCH ×4 (03:57→21:14)
[2019-03-21 05:45] LABS: BASOPHILS # (AUTO) 0.01 x10^3/uL (0-0.1); BASOPHILS % (AUTO) 0 % (0-1); EOSINOPHILS # (AUTO) 0.66 x10^3/uL (0-0.4); EOSINOPHILS % (AUTO) 6 % (1-7); LYMPHOCYTES # (AUTO) 1.76 x10^3/uL (1-3.4); LYMPHOCYTES % (AUTO) 15 % (22-44); MD NO; MEAN CORPUSCULAR HEMOGLOBIN 31.6 pg (27.5-34.5); MEAN CORPUSCULAR HGB CONC 33.1 g/dL (33.2-36.2); MEAN CORPUSCULAR VOLUME 95.3 fL (81-97); MEAN PLATELET VOLUME 8.1 fL (7.4-10.4); MONOCYTES # (AUTO) 0.77 x10^3/uL (0.2-0.8); MONOCYTES % (AUTO) 7 % (2-9); NEUTROPHILS # (AUTO) 8.22 x10^3/uL (1.8-6.8); NEUTROPHILS % (AUTO) 72 % (42-75); PLATELET COUNT 377 x10^3/uL (130-400); RED BLOOD COUNT 2.58 x10^6/uL (4.38-5.82); RED CELL DISTRIBUTION WIDTH 17.7 % (9.4-14.8)
[2019-03-21 05:56] LABS: CHLORIDE 101 mmol/L (98-107)
[2019-03-21 05:59] LABS: ANION GAP 10 mmol/L (5-15); CALCIUM 8.3 mg/dL (8.5-10.1); CREATININE 2.43 mg/dL (0.7-1.3)
[2019-03-21] MEDS: BUDESONIDE 0.5 MG/2 ML INHA INH SCH ×2 (08:20→20:36)
[2019-03-21] MEDS: GLYCOPYRROLATE 1 MG TABLET PO SCH ×3 (08:24→21:05)
[2019-03-21] MEDS: ACETYLCYSTEINE 600 MG CAPSULE PO SCH ×2 (08:24→21:04)
[2019-03-21] MEDS: LOPERAMIDE 2 MG CAPSULE PO PRN (08:25)
[2019-03-21] MEDS: ASPIRIN 81 MG TABLET CHEW PO SCH (08:25)
[2019-03-21] MEDS: SERTRALINE 50MG TABLET PO SCH (08:25)
[2019-03-21] MEDS: OXYcodone/APAP 5/325MG TABLET PO PRN ×2 (08:25→17:36)
[2019-03-21] MEDS: PSYLLIUM PACKET NG SCH (09:07)
[2019-03-21] MEDS ORDERED: DEXMEDETOMIDINE 200 MCG in SODIUM CHLORIDE 0.9% 48 ML IV PRN (13:30)
[2019-03-21] MEDS: CEFTRIAXONE PMX 2GM/50ML 50 ML IVPB SCH (13:52)
[2019-03-21] MEDS ORDERED: FUROSEMIDE 20 MG/2 ML IV ONE ×2 (15:30→17:30)
[2019-03-21] MEDS ORDERED: DEXMEDETOMIDINE 1,000 MCG in SODIUM CHLORIDE 0.9% 240 ML IV PRN (17:00)
[2019-03-21] MEDS ORDERED: ALBUMIN HUMAN 25% 100 ML IV ONE ×2 (17:30→18:00)
[2019-03-21] MEDS: FAMOTIDINE 20 MG/2 ML IV SCH (21:04)
[2019-03-22] MEDS: NICOTINE 21 MG/24 HR PATCH.TD24 TD SCH (00:56)
[2019-03-22] MEDS: HEPARIN 5,000 UNITS/ML, 1ML SQ SCH ×3 (01:51→18:24)
[2019-03-22] MEDS: SODIUM CHLORIDE INHALATION 7%, 4 ML NPPB SCH ×4 (03:05→18:46)
[2019-03-22] MEDS: ALBUTEROL SULFATE 2.5 MG/3 ML NPPB SCH ×3 (03:05→15:00)
[2019-03-22] MEDS: OXYcodone/APAP 5/325MG TABLET PO PRN ×2 (03:21→09:49)
[2019-03-22] MEDS: INSULIN LISPRO 100 UNITS/ML, PEN SQ-INSULIN SCH ×4 (04:00→21:18)
[2019-03-22 04:32] LABS: ANION GAP 8 mmol/L (5-15); CALCIUM 8.6 mg/dL (8.5-10.1); CHLORIDE 102 mmol/L (98-107)
[2019-03-22 05:05] LABS: BASOPHILS # (AUTO) 0.06 x10^3/uL (0-0.1); BASOPHILS % (AUTO) 1 % (0-1); EOSINOPHILS # (AUTO) 0.45 x10^3/uL (0-0.4); EOSINOPHILS % (AUTO) 4 % (1-7); LYMPHOCYTES # (AUTO) 1.81 x10^3/uL (1-3.4); LYMPHOCYTES % (AUTO) 17 % (22-44); MD NO; MEAN CORPUSCULAR HEMOGLOBIN 31.5 pg (27.5-34.5); MEAN CORPUSCULAR HGB CONC 33.2 g/dL (33.2-36.2); MEAN CORPUSCULAR VOLUME 95.2 fL (81-97); MEAN PLATELET VOLUME 8.2 fL (7.4-10.4); MONOCYTES # (AUTO) 0.84 x10^3/uL (0.2-0.8); MONOCYTES % (AUTO) 8 % (2-9); NEUTROPHILS # (AUTO) 7.51 x10^3/uL (1.8-6.8); NEUTROPHILS % (AUTO) 70 % (42-75); PLATELET COUNT 450 x10^3/uL (130-400); RED BLOOD COUNT 2.52 x10^6/uL (4.38-5.82); RED CELL DISTRIBUTION WIDTH 17.9 % (9.4-14.8)
[2019-03-22] MEDS ORDERED: ROCURONIUM 10 MG/ML,10ML ONE (08:00)
[2019-03-22] MEDS ORDERED: ETOMIDATE 20 MG/10 ML ONE (08:00)
[2019-03-22] MEDS: PSYLLIUM PACKET NG SCH (08:52)
[2019-03-22] MEDS: BUDESONIDE 0.5 MG/2 ML INHA INH SCH ×2 (09:00→18:47)
[2019-03-22] MEDS ORDERED: ALBUMIN HUMAN 25% 100 ML IV SCH (09:30)
[2019-03-22] MEDS ORDERED: ALBUMIN HUMAN 25% 100 ML ONE (09:33)
[2019-03-22] MEDS: ACETYLCYSTEINE 600 MG CAPSULE PO SCH ×2 (09:35→21:13)
[2019-03-22] MEDS: SERTRALINE 50MG TABLET PO SCH (09:35)
[2019-03-22] MEDS: ASPIRIN 81 MG TABLET CHEW PO SCH (09:35)
[2019-03-22] MEDS: GLYCOPYRROLATE 1 MG TABLET PO SCH ×3 (09:35→21:13)
[2019-03-22] MEDS ORDERED: SODIUM CHLORIDE 0.9% 1,000 ML IV SCH (10:00)
[2019-03-22 11:29] LABS: CHLORIDE 102 mmol/L (98-107)
[2019-03-22] MEDS ORDERED: MAGNESIUM SULFATE PMX 2GM/50ML 50 ML IV ONE (11:30)
[2019-03-22 11:34] LABS: ANION GAP 9 mmol/L (5-15); CALCIUM 8.9 mg/dL (8.5-10.1); CREATININE 2.53 mg/dL (0.7-1.3)
[2019-03-22] MEDS ORDERED: DEXMEDETOMIDINE 200 MCG in SODIUM CHLORIDE 0.9% 48 ML IV PRN (13:30)
[2019-03-22] MEDS ORDERED: ETOMIDATE 20 MG/10 ML IVPush ONE (14:00)
[2019-03-22] MEDS ORDERED: ROCURONIUM 10 MG/ML,10ML IVPush ONE (14:00)
[2019-03-22] MEDS ORDERED: FENTANYL PF 100 MCG/2ML ONE (14:23)
[2019-03-22] MEDS ORDERED: FENTANYL PF 100 MCG/2ML IVPush PRN (14:30)
[2019-03-22] MEDS: CEFTRIAXONE PMX 2GM/50ML 50 ML IVPB SCH (14:35)
[2019-03-22] MEDS ORDERED: ALBUTEROL SULFATE 2.5 MG/3 ML INLINE SCH (19:00)
[2019-03-22] MEDS ORDERED: PHARMACY MAY ADJ FOR RENAL FX MC SCH (19:30)
[2019-03-22] MEDS ORDERED: BISACODYL 10 MG SUPP PR PRN (19:30)
[2019-03-22] MEDS: ALBUTEROL/IPRATROPIUM 2.5MG/0.5MG, 3 ML INLINE SCH ×2 (19:30→23:22)
[2019-03-22] MEDS ORDERED: SENNA 176 MG/5 ML ORAL SOL NG PRN (19:30)
[2019-03-22] MEDS ORDERED: LIDOCAINE-MPF 1%, 2ML ENDO PRN (19:30)
[2019-03-22] MEDS ORDERED: LACTULOSE 20 GM/30 ML UDC NG PRN (19:30)
[2019-03-22] MEDS ORDERED: GLUCAGON 1 MG IM PRN (19:30)
[2019-03-22] MEDS ORDERED: SENNA/DOCUSATE TABLET NG PRN (19:30)
[2019-03-22] MEDS ORDERED: DEXMEDETOMIDINE 1,000 MCG in SODIUM CHLORIDE 0.9% 240 ML IV PRN (19:30)
[2019-03-22] MEDS ORDERED: DEXTROSE 4 GM TAB.CHEW PO PRN (19:30)
[2019-03-22] MEDS ORDERED: DEXTROSE 50%, 50ML SYRINGE IVPush PRN (19:30)
[2019-03-22] MEDS ORDERED: METOLAZONE 5 MG TABLET PO SCH (20:00)
[2019-03-22] MEDS ORDERED: FUROSEMIDE 20 MG/2 ML IV SCH (21:00)
[2019-03-22] MEDS: SODIUM CHLORIDE FLUSH 10ML SYR IVF SCH (21:13)
[2019-03-22] MEDS: FAMOTIDINE 20 MG/2 ML IV SCH (21:13)
[2019-03-22] MEDS: FENTANYL PF 100 MCG/2ML IVPush PRN (23:40)
[2019-03-22] MEDS: LABETALOL 5MG/ML, 20ML IVPush PRN (23:41)
[2019-03-23] MEDS: NICOTINE 21 MG/24 HR PATCH.TD24 TD SCH (01:27)
[2019-03-23] MEDS: HEPARIN 5,000 UNITS/ML, 1ML SQ SCH ×3 (01:38→18:00)
[2019-03-23] MEDS: hydrALAzine 20 MG/ML, 1ML IV PRN (01:54)
[2019-03-23] MEDS: ALBUTEROL/IPRATROPIUM 2.5MG/0.5MG, 3 ML INLINE SCH ×6 (03:20→22:07)
[2019-03-23] MEDS: SODIUM CHLORIDE INHALATION 7%, 4 ML NPPB SCH ×4 (03:20→18:38)
[2019-03-23] MEDS: INSULIN LISPRO 100 UNITS/ML, PEN SQ-INSULIN SCH ×4 (04:00→22:31)
[2019-03-23] MEDS: DEXMEDETOMIDINE 1,000 MCG in SODIUM CHLORIDE 0.9% 240 ML IV PRN ×2 (04:16→07:29)
[2019-03-23 04:17] LABS: BASOPHILS # (AUTO) 0.05 x10^3/uL (0-0.1); BASOPHILS % (AUTO) 1 % (0-1); EOSINOPHILS # (AUTO) 0.42 x10^3/uL (0-0.4); EOSINOPHILS % (AUTO) 4 % (1-7); LYMPHOCYTES # (AUTO) 1.75 x10^3/uL (1-3.4); LYMPHOCYTES % (AUTO) 18 % (22-44); MD NO; MEAN CORPUSCULAR HEMOGLOBIN 31.4 pg (27.5-34.5); MEAN CORPUSCULAR HGB CONC 32.9 g/dL (33.2-36.2); MEAN CORPUSCULAR VOLUME 95.6 fL (81-97); MEAN PLATELET VOLUME 7.7 fL (7.4-10.4); MONOCYTES # (AUTO) 0.88 x10^3/uL (0.2-0.8); MONOCYTES % (AUTO) 9 % (2-9); NEUTROPHILS # (AUTO) 6.45 x10^3/uL (1.8-6.8); NEUTROPHILS % (AUTO) 68 % (42-75); PLATELET COUNT 534 x10^3/uL (130-400)
[2019-03-23 04:33] LABS: ANION GAP 11 mmol/L (5-15); CALCIUM 8.5 mg/dL (8.5-10.1); CHLORIDE 107 mmol/L (98-107); CREATININE 2.46 mg/dL (0.7-1.3)
[2019-03-23 04:36] LABS: PREALBUMIN 6.6 mg/dL (20.0-40.0)
[2019-03-23] MEDS: SODIUM CHLORIDE FLUSH 10ML SYR IVF SCH ×2 (07:00→21:21)
[2019-03-23] MEDS: BUDESONIDE 0.5 MG/2 ML INHA INH SCH ×2 (07:00→18:38)
[2019-03-23] MEDS: ACETYLCYSTEINE 600 MG CAPSULE PO SCH ×2 (09:00→21:19)
[2019-03-23] MEDS: PSYLLIUM PACKET NG SCH (09:00)
[2019-03-23] MEDS: ASPIRIN 81 MG TABLET CHEW PO SCH (09:01)
[2019-03-23] MEDS: SERTRALINE 50MG TABLET PO SCH (09:01)
[2019-03-23] MEDS: GLYCOPYRROLATE 1 MG TABLET PO SCH ×3 (09:01→21:19)
[2019-03-23] MEDS: FENTANYL PF 100 MCG/2ML IVPush PRN ×2 (11:45→21:20)
[2019-03-23 13:21] LABS: ANION GAP 8 mmol/L (5-15); CALCIUM 8.5 mg/dL (8.5-10.1); CHLORIDE 106 mmol/L (98-107); CREATININE 2.82 mg/dL (0.7-1.3)
[2019-03-23] MEDS: CEFTRIAXONE PMX 2GM/50ML 50 ML IVPB SCH (14:04)
[2019-03-23] MEDS: FAMOTIDINE 20 MG/2 ML IV SCH (21:21)
[2019-03-24] MEDS: FENTANYL PF 100 MCG/2ML IVPush PRN (00:51)
[2019-03-24] MEDS: NICOTINE 21 MG/24 HR PATCH.TD24 TD SCH (00:51)
[2019-03-24] MEDS: DEXMEDETOMIDINE 1,000 MCG in SODIUM CHLORIDE 0.9% 240 ML IV PRN ×2 (00:52→19:40)
[2019-03-24] MEDS: SODIUM CHLORIDE INHALATION 7%, 4 ML NPPB SCH ×4 (02:05→20:55)
[2019-03-24] MEDS: ALBUTEROL/IPRATROPIUM 2.5MG/0.5MG, 3 ML INLINE SCH ×6 (02:06→22:53)
[2019-03-24 04:59] LABS: BASOPHILS # (AUTO) 0.03 x10^3/uL (0-0.1); BASOPHILS % (AUTO) 0 % (0-1); EOSINOPHILS # (AUTO) 0.31 x10^3/uL (0-0.4); EOSINOPHILS % (AUTO) 3 % (1-7); LYMPHOCYTES # (AUTO) 1.22 x10^3/uL (1-3.4); LYMPHOCYTES % (AUTO) 13 % (22-44); MD NO; MEAN CORPUSCULAR HEMOGLOBIN 31.4 pg (27.5-34.5); MEAN CORPUSCULAR VOLUME 95.1 fL (81-97); MEAN PLATELET VOLUME 7.3 fL (7.4-10.4); MONOCYTES # (AUTO) 0.87 x10^3/uL (0.2-0.8); MONOCYTES % (AUTO) 9 % (2-9); NEUTROPHILS % (AUTO) 74 % (42-75); PLATELET COUNT 533 x10^3/uL (130-400); RED BLOOD COUNT 2.46 x10^6/uL (4.38-5.82); RED CELL DISTRIBUTION WIDTH 16.7 % (9.4-14.8)
[2019-03-24 05:04] LABS: ANION GAP 6 mmol/L (5-15); CALCIUM 8.5 mg/dL (8.5-10.1); CHLORIDE 108 mmol/L (98-107); CREATININE 2.76 mg/dL (0.7-1.3)
[2019-03-24] MEDS: INSULIN LISPRO 100 UNITS/ML, PEN SQ-INSULIN SCH ×4 (05:45→22:00)
[2019-03-24] MEDS: BUDESONIDE 0.5 MG/2 ML INHA INH SCH ×2 (06:45→20:55)
[2019-03-24] MEDS ORDERED: FUROSEMIDE 20 MG/2 ML IV ONE (08:30)
[2019-03-24] MEDS: ACETYLCYSTEINE 600 MG CAPSULE PO SCH ×2 (10:07→22:14)
[2019-03-24] MEDS: ASPIRIN 81 MG TABLET CHEW PO SCH (10:07)
[2019-03-24] MEDS: GLYCOPYRROLATE 1 MG TABLET PO SCH ×3 (10:07→22:13)
[2019-03-24] MEDS: PSYLLIUM PACKET NG SCH (10:08)
[2019-03-24] MEDS: SERTRALINE 50MG TABLET PO SCH (10:08)
[2019-03-24] MEDS: HEPARIN 5,000 UNITS/ML, 1ML SQ SCH ×2 (10:09→17:42)
[2019-03-24] MEDS: SODIUM CHLORIDE FLUSH 10ML SYR IVF SCH ×2 (10:10→22:14)
[2019-03-24] MEDS: CEFTRIAXONE PMX 2GM/50ML 50 ML IVPB SCH (13:44)
[2019-03-24] MEDS: LORazepam 2 MG/ML, 1ML IVPush PRN (20:03)
[2019-03-24] MEDS: FAMOTIDINE 20 MG/2 ML IV SCH (22:13)
[2019-03-25] MEDS: NICOTINE 21 MG/24 HR PATCH.TD24 TD SCH (01:50)
[2019-03-25] MEDS: HEPARIN 5,000 UNITS/ML, 1ML SQ SCH ×2 (01:50→09:04)
[2019-03-25] MEDS: LORazepam 2 MG/ML, 1ML IVPush PRN ×2 (02:20→14:02)
[2019-03-25] MEDS: ALBUTEROL/IPRATROPIUM 2.5MG/0.5MG, 3 ML INLINE SCH ×6 (02:31→22:27)
[2019-03-25] MEDS: SODIUM CHLORIDE INHALATION 7%, 4 ML NPPB SCH (02:31)
[2019-03-25 04:48] LABS: BASOPHILS # (AUTO) 0.04 x10^3/uL (0-0.1); BASOPHILS % (AUTO) 0 % (0-1); EOSINOPHILS # (AUTO) 0.43 x10^3/uL (0-0.4); EOSINOPHILS % (AUTO) 5 % (1-7); LYMPHOCYTES # (AUTO) 1.52 x10^3/uL (1-3.4); LYMPHOCYTES % (AUTO) 17 % (22-44); MD NO; MEAN CORPUSCULAR HEMOGLOBIN 31.4 pg (27.5-34.5); MEAN CORPUSCULAR HGB CONC 32.8 g/dL (33.2-36.2); MEAN CORPUSCULAR VOLUME 95.8 fL (81-97); MEAN PLATELET VOLUME 7.3 fL (7.4-10.4); MONOCYTES # (AUTO) 0.73 x10^3/uL (0.2-0.8); MONOCYTES % (AUTO) 8 % (2-9); NEUTROPHILS # (AUTO) 6.18 x10^3/uL (1.8-6.8); NEUTROPHILS % (AUTO) 70 % (42-75); PLATELET COUNT 538 x10^3/uL (130-400); RED BLOOD COUNT 2.42 x10^6/uL (4.38-5.82); RED CELL DISTRIBUTION WIDTH 16.9 % (9.4-14.8)
[2019-03-25 04:55] LABS: ANION GAP 7 mmol/L (5-15); CALCIUM 8.4 mg/dL (8.5-10.1); CHLORIDE 107 mmol/L (98-107); CREATININE 2.74 mg/dL (0.7-1.3); TRIGLYCERIDES 116 mg/dL (50-200)
[2019-03-25] MEDS: INSULIN LISPRO 100 UNITS/ML, PEN SQ-INSULIN SCH ×4 (05:15→22:41)
[2019-03-25] MEDS: BUDESONIDE 0.5 MG/2 ML INHA INH SCH ×2 (06:10→22:27)
[2019-03-25] MEDS: PSYLLIUM PACKET NG SCH (09:05)
[2019-03-25] MEDS: SERTRALINE 50MG TABLET PO SCH (09:05)
[2019-03-25] MEDS: ACETYLCYSTEINE 600 MG CAPSULE PO SCH ×2 (09:05→22:40)
[2019-03-25] MEDS: SODIUM CHLORIDE FLUSH 10ML SYR IVF SCH ×2 (09:05→19:43)
[2019-03-25] MEDS: ASPIRIN 81 MG TABLET CHEW PO SCH (09:05)
[2019-03-25] MEDS: OXYcodone/APAP 5/325MG TABLET PO PRN (09:06)
[2019-03-25] MEDS: GLYCOPYRROLATE 1 MG TABLET PO SCH (12:18)
[2019-03-25] MEDS: DEXMEDETOMIDINE 1,000 MCG in SODIUM CHLORIDE 0.9% 240 ML IV PRN (12:31)
[2019-03-25 12:46] LABS: ANION GAP 6 mmol/L (5-15); CALCIUM 8.1 mg/dL (8.5-10.1); CHLORIDE 109 mmol/L (98-107); CREATININE 2.84 mg/dL (0.7-1.3)
[2019-03-25] MEDS: CEFTRIAXONE PMX 2GM/50ML 50 ML IVPB SCH (14:02)
[2019-03-25] MEDS ORDERED: FUROSEMIDE 40 MG/4 ML IV STA (16:58)
[2019-03-25] MEDS: FAMOTIDINE 20 MG/2 ML IV SCH (19:42)
[2019-03-25] MEDS ORDERED: HEPARIN 5,000 UNITS/ML, 1ML SQ SCH (21:00)
[2019-03-25] MEDS: FENTANYL PF 100 MCG/2ML IVPush PRN (22:46)
[2019-03-26] MEDS: DEXMEDETOMIDINE 1,000 MCG in SODIUM CHLORIDE 0.9% 240 ML IV PRN ×2 (00:12→14:14)
[2019-03-26] MEDS: NICOTINE 21 MG/24 HR PATCH.TD24 TD SCH (00:14)
[2019-03-26] MEDS: LORazepam 2 MG/ML, 1ML IVPush PRN ×3 (00:26→19:53)
[2019-03-26] MEDS: ALBUTEROL/IPRATROPIUM 2.5MG/0.5MG, 3 ML INLINE SCH ×6 (02:26→22:20)
[2019-03-26] MEDS: INSULIN LISPRO 100 UNITS/ML, PEN SQ-INSULIN SCH ×4 (04:00→22:56)
[2019-03-26 04:43] LABS: BASOPHILS # (AUTO) 0.06 x10^3/uL (0-0.1); BASOPHILS % (AUTO) 1 % (0-1); EOSINOPHILS # (AUTO) 0.46 x10^3/uL (0-0.4); EOSINOPHILS % (AUTO) 5 % (1-7); LYMPHOCYTES # (AUTO) 1.91 x10^3/uL (1-3.4); LYMPHOCYTES % (AUTO) 19 % (22-44); MD NO; MEAN CORPUSCULAR HEMOGLOBIN 31.2 pg (27.5-34.5); MEAN CORPUSCULAR HGB CONC 32.6 g/dL (33.2-36.2); MEAN CORPUSCULAR VOLUME 95.9 fL (81-97); MEAN PLATELET VOLUME 7.4 fL (7.4-10.4); MONOCYTES # (AUTO) 0.76 x10^3/uL (0.2-0.8); MONOCYTES % (AUTO) 8 % (2-9); NEUTROPHILS % (AUTO) 68 % (42-75); PLATELET COUNT 464 x10^3/uL (130-400); RED BLOOD COUNT 2.44 x10^6/uL (4.38-5.82); RED CELL DISTRIBUTION WIDTH 16.5 % (9.4-14.8)
[2019-03-26 04:47] LABS: ANION GAP 7 mmol/L (5-15); CALCIUM 8.4 mg/dL (8.5-10.1); CHLORIDE 109 mmol/L (98-107); CREATININE 2.83 mg/dL (0.7-1.3)
[2019-03-26 06:00] VITALS: BP 150/72
[2019-03-26] MEDS: BUDESONIDE 0.5 MG/2 ML INHA INH SCH ×2 (06:20→22:20)
[2019-03-26] MEDS: PSYLLIUM PACKET NG SCH (09:00)
[2019-03-26] MEDS ORDERED: CHLOROTHIAZIDE 500 MG IV ONE (09:30)
[2019-03-26] MEDS: OXYcodone/APAP 5/325MG TABLET PO PRN (10:16)
[2019-03-26] MEDS: QUETIAPINE 25MG TABLET PO SCH ×2 (10:18→19:46)
[2019-03-26] MEDS: ASPIRIN 81 MG TABLET CHEW PO SCH (10:19)
[2019-03-26] MEDS: ACETYLCYSTEINE 600 MG CAPSULE PO SCH ×2 (10:19→19:46)
[2019-03-26] MEDS: SERTRALINE 50MG TABLET PO SCH (10:19)
[2019-03-26] MEDS: SODIUM CHLORIDE FLUSH 10ML SYR IVF SCH ×2 (10:24→19:46)
[2019-03-26 12:33] LABS: ANION GAP 5 mmol/L (5-15); CALCIUM 8.2 mg/dL (8.5-10.1); CHLORIDE 111 mmol/L (98-107); CREATININE 2.84 mg/dL (0.7-1.3)
[2019-03-26] MEDS: CEFTRIAXONE PMX 2GM/50ML 50 ML IVPB SCH (14:14)
[2019-03-26] MEDS ORDERED: HALOPERIDOL 5 MG/ML IV PRN (18:30)
[2019-03-26] MEDS: FAMOTIDINE 20 MG/2 ML IV SCH (19:46)
[2019-03-27] MEDS: NICOTINE 21 MG/24 HR PATCH.TD24 TD SCH (00:29)
[2019-03-27] MEDS: DEXMEDETOMIDINE 1,000 MCG in SODIUM CHLORIDE 0.9% 240 ML IV PRN ×2 (01:11→14:43)
[2019-03-27] MEDS: ALBUTEROL/IPRATROPIUM 2.5MG/0.5MG, 3 ML INLINE SCH ×6 (02:44→22:22)
[2019-03-27] MEDS: INSULIN LISPRO 100 UNITS/ML, PEN SQ-INSULIN SCH ×4 (04:00→21:29)
[2019-03-27 05:02] LABS: ANION GAP 5 mmol/L (5-15); CALCIUM 8.4 mg/dL (8.5-10.1); CHLORIDE 110 mmol/L (98-107); CREATININE 2.99 mg/dL (0.7-1.3)
[2019-03-27 05:03] LABS: MEAN CORPUSCULAR HEMOGLOBIN 30.9 pg (27.5-34.5); MEAN CORPUSCULAR HGB CONC 32.7 g/dL (33.2-36.2); MEAN CORPUSCULAR VOLUME 94.3 fL (81-97); MEAN PLATELET VOLUME 7.1 fL (7.4-10.4); PLATELET COUNT 458 x10^3/uL (130-400); RED BLOOD COUNT 2.39 x10^6/uL (4.38-5.82); RED CELL DISTRIBUTION WIDTH 16.6 % (9.4-14.8)
[2019-03-27 05:49] LABS: BASOPHILS # (AUTO) 0.05 x10^3/uL (0-0.1); BASOPHILS % (AUTO) 1 % (0-1); EOSINOPHILS # (AUTO) 0.39 x10^3/uL (0-0.4); EOSINOPHILS % (AUTO) 4 % (1-7); LYMPHOCYTES % (AUTO) 20 % (22-44); MD SCAN; MONOCYTES # (AUTO) 0.48 x10^3/uL (0.2-0.8); MONOCYTES % (AUTO) 5 % (2-9); NEUTROPHILS # (AUTO) 6.13 x10^3/uL (1.8-6.8); NEUTROPHILS % (AUTO) 69 % (42-75)
[2019-03-27] MEDS: BUDESONIDE 0.5 MG/2 ML INHA INH SCH ×2 (06:25→18:32)
[2019-03-27] MEDS: ACETYLCYSTEINE 600 MG CAPSULE PO SCH ×2 (08:21→21:22)
[2019-03-27] MEDS: ASPIRIN 81 MG TABLET CHEW PO SCH (08:22)
[2019-03-27] MEDS: SERTRALINE 50MG TABLET PO SCH (08:22)
[2019-03-27] MEDS: PSYLLIUM PACKET NG SCH (08:22)
[2019-03-27] MEDS: QUETIAPINE 25MG TABLET PO SCH ×2 (08:22→21:22)
[2019-03-27] MEDS: SODIUM CHLORIDE FLUSH 10ML SYR IVF SCH ×2 (08:26→21:23)
[2019-03-27] MEDS: CEFTRIAXONE PMX 2GM/50ML 50 ML IVPB SCH (14:47)
[2019-03-27] MEDS: FENTANYL PF 100 MCG/2ML IVPush PRN (15:08)
[2019-03-27] MEDS: FAMOTIDINE 20 MG/2 ML IV SCH (21:22)
[2019-03-28] MEDS: NICOTINE 21 MG/24 HR PATCH.TD24 TD SCH (01:31)
[2019-03-28] MEDS: LORazepam 2 MG/ML, 1ML IVPush PRN ×2 (01:32→20:58)
[2019-03-28] MEDS: ALBUTEROL/IPRATROPIUM 2.5MG/0.5MG, 3 ML INLINE SCH ×6 (02:29→23:15)
[2019-03-28] MEDS: DEXMEDETOMIDINE 1,000 MCG in SODIUM CHLORIDE 0.9% 240 ML IV PRN ×2 (04:25→18:56)
[2019-03-28] MEDS: INSULIN LISPRO 100 UNITS/ML, PEN SQ-INSULIN SCH ×4 (05:01→21:25)
[2019-03-28 05:45] LABS: BASOPHILS # (AUTO) 0.02 x10^3/uL (0-0.1); BASOPHILS % (AUTO) 0 % (0-1); EOSINOPHILS # (AUTO) 0.45 x10^3/uL (0-0.4); EOSINOPHILS % (AUTO) 4 % (1-7); LYMPHOCYTES # (AUTO) 1.66 x10^3/uL (1-3.4); LYMPHOCYTES % (AUTO) 16 % (22-44); MD NO; MEAN CORPUSCULAR HEMOGLOBIN 31.4 pg (27.5-34.5); MEAN CORPUSCULAR HGB CONC 32.9 g/dL (33.2-36.2); MEAN CORPUSCULAR VOLUME 95.2 fL (81-97); MEAN PLATELET VOLUME 7.6 fL (7.4-10.4); MONOCYTES # (AUTO) 0.44 x10^3/uL (0.2-0.8); MONOCYTES % (AUTO) 4 % (2-9); NEUTROPHILS # (AUTO) 7.92 x10^3/uL (1.8-6.8); NEUTROPHILS % (AUTO) 76 % (42-75); PLATELET COUNT 414 x10^3/uL (130-400); RED BLOOD COUNT 2.46 x10^6/uL (4.38-5.82); RED CELL DISTRIBUTION WIDTH 16.1 % (9.4-14.8)
[2019-03-28 05:51] LABS: ANION GAP 6 mmol/L (5-15); CALCIUM 8.4 mg/dL (8.5-10.1); CHLORIDE 107 mmol/L (98-107)
[2019-03-28 05:53] LABS: CREATININE 3.01 mg/dL (0.7-1.3); TRIGLYCERIDES 86 mg/dL (50-200)
[2019-03-28] MEDS: BUDESONIDE 0.5 MG/2 ML INHA INH SCH ×2 (06:05→19:27)
[2019-03-28] MEDS: PSYLLIUM PACKET NG SCH (09:00)
[2019-03-28] MEDS: SODIUM CHLORIDE FLUSH 10ML SYR IVF SCH ×2 (09:00→21:23)
[2019-03-28] MEDS: SERTRALINE 50MG TABLET PO SCH (10:27)
[2019-03-28] MEDS: QUETIAPINE 25MG TABLET PO SCH ×2 (10:27→20:58)
[2019-03-28] MEDS: ASPIRIN 81 MG TABLET CHEW PO SCH (10:27)
[2019-03-28] MEDS: FUROSEMIDE 40 MG/4 ML IV SCH ×2 (10:41→17:20)
[2019-03-28] MEDS: ACETYLCYSTEINE 600 MG CAPSULE PO SCH ×2 (10:42→20:58)
[2019-03-28 10:48] LABS: MICROSCOPIC INDICATED
[2019-03-28 11:56] LABS: ALANINE AMINOTRANSFERASE 12 U/L (12-78); ANION GAP 9 mmol/L (5-15); CALCIUM 8.2 mg/dL (8.5-10.1); CHLORIDE 108 mmol/L (98-107); CREATININE 2.95 mg/dL (0.7-1.3)
[2019-03-28 11:58] LABS: ALKALINE PHOSPHATASE 96 U/L (45-117); BILIRUBIN,TOTAL 0.2 mg/dL (0.2-1.0); TOTAL PROTEIN 6.4 g/dL (6.4-8.2)
[2019-03-28 12:04] LABS: BILIRUBIN, DIRECT < 0.1 mg/dL (0.1-0.2); BILIRUBIN,INDIRECT 0.1 mg/dL (0.0-2.0)
[2019-03-28 13:12] LABS: D-DIMER (DIC) 8.64 ug/mlFEU (0.00-0.52)
[2019-03-28] MEDS: FENTANYL PF 100 MCG/2ML IVPush PRN (17:02)
[2019-03-28] MEDS: FAMOTIDINE 20 MG/2 ML IV SCH (20:59)
[2019-03-29] MEDS: NICOTINE 21 MG/24 HR PATCH.TD24 TD SCH (00:44)
[2019-03-29] MEDS: hydrALAzine 20 MG/ML, 1ML IV PRN (01:29)
[2019-03-29] MEDS: FENTANYL PF 100 MCG/2ML IVPush PRN ×2 (02:57→13:23)
[2019-03-29] MEDS: ALBUTEROL/IPRATROPIUM 2.5MG/0.5MG, 3 ML INLINE SCH ×7 (02:58→23:00)
[2019-03-29] MEDS: LORazepam 2 MG/ML, 1ML IVPush PRN (03:47)
[2019-03-29] MEDS: INSULIN LISPRO 100 UNITS/ML, PEN SQ-INSULIN SCH ×4 (03:57→21:55)
[2019-03-29 04:06] LABS: BASOPHILS # (AUTO) 0.04 x10^3/uL (0-0.1); BASOPHILS % (AUTO) 0 % (0-1); EOSINOPHILS # (AUTO) 0.36 x10^3/uL (0-0.4); EOSINOPHILS % (AUTO) 4 % (1-7); LYMPHOCYTES # (AUTO) 1.63 x10^3/uL (1-3.4); LYMPHOCYTES % (AUTO) 16 % (22-44); MD NO; MEAN CORPUSCULAR HGB CONC 32.9 g/dL (33.2-36.2); MEAN CORPUSCULAR VOLUME 94.3 fL (81-97); MEAN PLATELET VOLUME 7.3 fL (7.4-10.4); MONOCYTES # (AUTO) 0.46 x10^3/uL (0.2-0.8); MONOCYTES % (AUTO) 5 % (2-9); NEUTROPHILS # (AUTO) 7.68 x10^3/uL (1.8-6.8); NEUTROPHILS % (AUTO) 76 % (42-75); PLATELET COUNT 406 x10^3/uL (130-400); RED BLOOD COUNT 2.51 x10^6/uL (4.38-5.82)
[2019-03-29 04:14] LABS: ALBUMIN 2.1 g/dL (3.4-5.0); ANION GAP 8 mmol/L (5-15); CALCIUM 8.5 mg/dL (8.5-10.1); CHLORIDE 108 mmol/L (98-107)
[2019-03-29] MEDS: BUDESONIDE 0.5 MG/2 ML INHA INH SCH ×2 (07:00→21:00)
[2019-03-29] MEDS: DEXMEDETOMIDINE 1,000 MCG in SODIUM CHLORIDE 0.9% 240 ML IV PRN (07:06)
[2019-03-29] MEDS: FUROSEMIDE 40 MG/4 ML IV SCH ×2 (08:11→18:34)
[2019-03-29] MEDS: SERTRALINE 50MG TABLET PO SCH (08:29)
[2019-03-29] MEDS: QUETIAPINE 25MG TABLET PO SCH ×2 (08:29→21:55)
[2019-03-29] MEDS: ASPIRIN 81 MG TABLET CHEW PO SCH (08:29)
[2019-03-29] MEDS: ACETYLCYSTEINE 600 MG CAPSULE PO SCH (08:29)
[2019-03-29] MEDS: SCOPOLAMINE PATCH, 1.5MG PATCH.TD72 TD SCH (08:31)
[2019-03-29] MEDS: SODIUM CHLORIDE FLUSH 10ML SYR IVF SCH ×2 (08:40→21:54)
[2019-03-29] MEDS: PSYLLIUM PACKET NG SCH (08:40)
[2019-03-29] MEDS ORDERED: ERTAPENEM 1 GM in SODIUM CHLORIDE 0.9% 50 ML IV SCH (13:00)
[2019-03-29] MEDS: ERTAPENEM 0.5 GM in SODIUM CHLORIDE 0.9% 50 ML IV SCH (14:43)
[2019-03-29] MEDS ORDERED: PROPOFOL 100 ML IV ONE (14:54)
[2019-03-29] MEDS: PROPOFOL 100 ML IV PRN ×2 (15:00→22:16)
[2019-03-29] MEDS: FAMOTIDINE 20 MG/2 ML IV SCH (21:54)
[2019-03-30] MEDS: PROPOFOL 100 ML IV PRN ×4 (02:26→18:10)
[2019-03-30] MEDS: ALBUTEROL/IPRATROPIUM 2.5MG/0.5MG, 3 ML INLINE SCH ×6 (03:00→22:14)
[2019-03-30] MEDS: INSULIN LISPRO 100 UNITS/ML, PEN SQ-INSULIN SCH ×4 (04:00→21:09)
[2019-03-30 05:22] LABS: INTERNATIONAL NORMALIZED RATIO 1.15 (0.93-1.1)
[2019-03-30 05:24] LABS: ANION GAP 10 mmol/L (5-15); CALCIUM 8.4 mg/dL (8.5-10.1); CHLORIDE 108 mmol/L (98-107); MEAN CORPUSCULAR HGB CONC 33.4 g/dL (33.2-36.2); MEAN CORPUSCULAR VOLUME 92.9 fL (81-97); MEAN PLATELET VOLUME 7.2 fL (7.4-10.4); PLATELET COUNT 339 x10^3/uL (130-400); RED CELL DISTRIBUTION WIDTH 15.9 % (9.4-14.8)
[2019-03-30 05:29] LABS: CREATININE 3.43 mg/dL (0.7-1.3); PREALBUMIN 10.3 mg/dL (20.0-40.0)
[2019-03-30 05:58] LABS: BASOPHILS # (AUTO) 0.05 x10^3/uL (0-0.1); BASOPHILS % (AUTO) 1 % (0-1); EOSINOPHILS # (AUTO) 0.31 x10^3/uL (0-0.4); EOSINOPHILS % (AUTO) 4 % (1-7); LYMPHOCYTES # (AUTO) 1.75 x10^3/uL (1-3.4); LYMPHOCYTES % (AUTO) 24 % (22-44); MD SCAN; MONOCYTES % (AUTO) 7 % (2-9); NEUTROPHILS # (AUTO) 4.75 x10^3/uL (1.8-6.8); NEUTROPHILS % (AUTO) 65 % (42-75)
[2019-03-30] MEDS: BUDESONIDE 0.5 MG/2 ML INHA INH SCH ×2 (07:13→19:06)
[2019-03-30] MEDS: FUROSEMIDE 40 MG/4 ML IV SCH ×2 (08:15→16:59)
[2019-03-30] MEDS: SODIUM CHLORIDE FLUSH 10ML SYR IVF SCH ×2 (08:16→21:09)
[2019-03-30 11:02] VITALS: BP 110/59
[2019-03-30 11:22] VITALS: BP 118/60
[2019-03-30 13:23] VITALS: BP 119/57
[2019-03-30 14:07] LABS: TOTAL PROTEIN 6.4 g/dL (6.4-8.2)
[2019-03-30] MEDS: ERTAPENEM 0.5 GM in SODIUM CHLORIDE 0.9% 50 ML IV SCH (14:25)
[2019-03-30 14:30] VITALS: BP 121/57
[2019-03-30] MEDS ORDERED: LIDOCAINE 1%, 10ML ONE (15:17)
[2019-03-30] MEDS: FENTANYL PF 100 MCG/2ML IVPush PRN (16:16)
[2019-03-30] MEDS: QUETIAPINE 25MG TABLET PO SCH ×2 (16:58→21:10)
[2019-03-30] MEDS: PSYLLIUM PACKET NG SCH (16:59)
[2019-03-30] MEDS: SERTRALINE 50MG TABLET PO SCH (17:00)
[2019-03-30] MEDS: ASPIRIN 81 MG TABLET CHEW PO SCH (17:00)
[2019-03-30] MEDS: FAMOTIDINE 20 MG/2 ML IV SCH (21:09)
[2019-03-31] MEDS: ALBUTEROL/IPRATROPIUM 2.5MG/0.5MG, 3 ML INLINE SCH ×6 (02:18→22:42)
[2019-03-31] MEDS: PROPOFOL 100 ML IV PRN ×4 (02:43→22:51)
[2019-03-31] MEDS: INSULIN LISPRO 100 UNITS/ML, PEN SQ-INSULIN SCH ×2 (05:00→08:49)
[2019-03-31 05:35] LABS: ANION GAP 9 mmol/L (5-15); BASOPHILS # (AUTO) 0.03 x10^3/uL (0-0.1); BASOPHILS % (AUTO) 0 % (0-1); CALCIUM 8.2 mg/dL (8.5-10.1); CHLORIDE 108 mmol/L (98-107); EOSINOPHILS # (AUTO) 0.28 x10^3/uL (0-0.4); EOSINOPHILS % (AUTO) 3 % (1-7); LYMPHOCYTES % (AUTO) 18 % (22-44); MD NO; MEAN CORPUSCULAR HEMOGLOBIN 30.1 pg (27.5-34.5); MEAN CORPUSCULAR HGB CONC 32.8 g/dL (33.2-36.2); MEAN CORPUSCULAR VOLUME 91.9 fL (81-97); MEAN PLATELET VOLUME 7.4 fL (7.4-10.4); MONOCYTES # (AUTO) 0.44 x10^3/uL (0.2-0.8); MONOCYTES % (AUTO) 5 % (2-9); NEUTROPHILS # (AUTO) 6.02 x10^3/uL (1.8-6.8); NEUTROPHILS % (AUTO) 73 % (42-75); PLATELET COUNT 318 x10^3/uL (130-400); RED CELL DISTRIBUTION WIDTH 16.5 % (9.4-14.8)
[2019-03-31 05:43] LABS: % IRON SATURATION 13 % (20-55); CREATININE 3.77 mg/dL (0.7-1.3); IRON LEVEL 25 mcg/dL (65-175); TOTAL IRON BINDING CAPACITY 196 mcg/dL (250-450); TRIGLYCERIDES 142 mg/dL (50-200)
[2019-03-31] MEDS: BUDESONIDE 0.5 MG/2 ML INHA INH SCH ×2 (06:30→19:10)
[2019-03-31] MEDS: QUETIAPINE 25MG TABLET PO SCH ×2 (08:44→20:03)
[2019-03-31] MEDS: ASPIRIN 81 MG TABLET CHEW PO SCH (08:44)
[2019-03-31] MEDS: ERGOCALCIFEROL 50,000 UNIT CAPSULE PO SCH (08:44)
[2019-03-31] MEDS: FUROSEMIDE 40 MG/4 ML IV SCH ×2 (08:44→16:12)
[2019-03-31] MEDS: SERTRALINE 50MG TABLET PO SCH (08:44)
[2019-03-31] MEDS: OXYcodone/APAP 5/325MG TABLET PO PRN (08:45)
[2019-03-31] MEDS: SODIUM CHLORIDE FLUSH 10ML SYR IVF SCH ×2 (08:46→20:08)
[2019-03-31] MEDS: PSYLLIUM PACKET NG SCH (08:46)
[2019-03-31] MEDS: IRON SUCROSE COMPLEX 100MG/5ML IV SCH (14:06)
[2019-03-31] MEDS: ERTAPENEM 0.5 GM in SODIUM CHLORIDE 0.9% 50 ML IV SCH (14:48)
[2019-03-31] MEDS: FAMOTIDINE 20 MG/2 ML IV SCH (20:00)
[2019-04-01] MEDS: ALBUTEROL/IPRATROPIUM 2.5MG/0.5MG, 3 ML INLINE SCH ×6 (02:47→22:56)
[2019-04-01 04:59] LABS: BASOPHILS # (AUTO) 0.03 x10^3/uL (0-0.1); BASOPHILS % (AUTO) 0 % (0-1); EOSINOPHILS # (AUTO) 0.44 x10^3/uL (0-0.4); EOSINOPHILS % (AUTO) 6 % (1-7); LYMPHOCYTES # (AUTO) 1.52 x10^3/uL (1-3.4); LYMPHOCYTES % (AUTO) 20 % (22-44); MD NO; MEAN CORPUSCULAR HEMOGLOBIN 30.8 pg (27.5-34.5); MEAN CORPUSCULAR HGB CONC 33.2 g/dL (33.2-36.2); MEAN CORPUSCULAR VOLUME 92.9 fL (81-97); MEAN PLATELET VOLUME 7.2 fL (7.4-10.4); MONOCYTES # (AUTO) 0.55 x10^3/uL (0.2-0.8); MONOCYTES % (AUTO) 7 % (2-9); NEUTROPHILS # (AUTO) 5.25 x10^3/uL (1.8-6.8); NEUTROPHILS % (AUTO) 67 % (42-75); PLATELET COUNT 351 x10^3/uL (130-400); RED BLOOD COUNT 2.67 x10^6/uL (4.38-5.82); RED CELL DISTRIBUTION WIDTH 15.7 % (9.4-14.8)
[2019-04-01 05:10] LABS: ANION GAP 10 mmol/L (5-15); CALCIUM 8.2 mg/dL (8.5-10.1); CHLORIDE 108 mmol/L (98-107)
[2019-04-01] MEDS: PROPOFOL 100 ML IV PRN ×3 (05:47→23:32)
[2019-04-01] MEDS: BUDESONIDE 0.5 MG/2 ML INHA INH SCH ×2 (06:25→18:29)
[2019-04-01] MEDS: FUROSEMIDE 40 MG/4 ML IV SCH ×2 (07:57→18:16)
[2019-04-01] MEDS: QUETIAPINE 25MG TABLET PO SCH ×2 (08:26→22:23)
[2019-04-01] MEDS: SERTRALINE 50MG TABLET PO SCH (08:26)
[2019-04-01] MEDS: ASPIRIN 81 MG TABLET CHEW PO SCH (08:26)
[2019-04-01] MEDS: SODIUM CHLORIDE FLUSH 10ML SYR IVF SCH ×2 (08:28→22:23)
[2019-04-01] MEDS: SCOPOLAMINE PATCH, 1.5MG PATCH.TD72 TD SCH (08:35)
[2019-04-01] MEDS: OXYcodone/APAP 5/325MG TABLET PO PRN (08:37)
[2019-04-01] MEDS: PSYLLIUM PACKET NG SCH (09:00)
[2019-04-01] MEDS: ERTAPENEM 0.5 GM in SODIUM CHLORIDE 0.9% 50 ML IV SCH (13:58)
[2019-04-01] MEDS ORDERED: MIDAZOLAM 1 MG/ML, 2ML ONE (14:30)
[2019-04-01] MEDS ORDERED: FENTANYL PF 100 MCG/2ML ONE ×2 (14:30→16:13)
[2019-04-01] MEDS ORDERED: BUPIVACAINE/PF 0.5% ONE (15:30)
[2019-04-01] MEDS ORDERED: EPINEPHRINE 1 MG/ML, 1ML ONE (15:30)
[2019-04-01 15:33] LABS: ANA SCREEN POSITIVE (Negative); ANTI-NUCLEAR ANTIBODY PATTERN HOMOGENOUS
[2019-04-01] MEDS ORDERED: ROCURONIUM 10MG/ML,5ML ONE ×2 (16:46→16:47)
[2019-04-01] MEDS ORDERED: PHENYLEPHRINE 10 MG/ML ONE (17:08)
[2019-04-01] MEDS: FAMOTIDINE 20 MG/2 ML IV SCH (22:22)
[2019-04-02] MEDS: ALBUTEROL/IPRATROPIUM 2.5MG/0.5MG, 3 ML INLINE SCH ×6 (02:18→22:38)
[2019-04-02 04:16] LABS: ANION GAP 11 mmol/L (5-15); CHLORIDE 110 mmol/L (98-107); CREATININE 4.51 mg/dL (0.7-1.3)
[2019-04-02 04:21] LABS: MEAN CORPUSCULAR HEMOGLOBIN 30.5 pg (27.5-34.5); MEAN CORPUSCULAR HGB CONC 32.8 g/dL (33.2-36.2); MEAN CORPUSCULAR VOLUME 92.8 fL (81-97); MEAN PLATELET VOLUME 7.3 fL (7.4-10.4); PLATELET COUNT 365 x10^3/uL (130-400); RED BLOOD COUNT 2.27 x10^6/uL (4.38-5.82); RED CELL DISTRIBUTION WIDTH 15.9 % (9.4-14.8)
[2019-04-02 05:42] LABS: BASOPHILS # (AUTO) 0.06 x10^3/uL (0-0.1); BASOPHILS % (AUTO) 1 % (0-1); EOSINOPHILS # (AUTO) 0.25 x10^3/uL (0-0.4); EOSINOPHILS % (AUTO) 3 % (1-7); LYMPHOCYTES # (AUTO) 1.32 x10^3/uL (1-3.4); LYMPHOCYTES % (AUTO) 15 % (22-44); MD SCAN; MONOCYTES # (AUTO) 0.54 x10^3/uL (0.2-0.8); MONOCYTES % (AUTO) 6 % (2-9); NEUTROPHILS # (AUTO) 6.78 x10^3/uL (1.8-6.8); NEUTROPHILS % (AUTO) 76 % (42-75)
[2019-04-02] MEDS: BUDESONIDE 0.5 MG/2 ML INHA INH SCH ×2 (06:20→21:00)
[2019-04-02 06:47] VITALS: BP 103/57
[2019-04-02 07:00] VITALS: BP 106/55
[2019-04-02] MEDS: OXYcodone/APAP 5/325MG TABLET PO PRN ×3 (08:38→21:06)
[2019-04-02] MEDS: QUETIAPINE 25MG TABLET PO SCH ×2 (08:38→21:05)
[2019-04-02] MEDS: SERTRALINE 50MG TABLET PO SCH (08:38)
[2019-04-02] MEDS: SODIUM CHLORIDE FLUSH 10ML SYR IVF SCH ×2 (08:39→21:07)
[2019-04-02] MEDS: IRON SUCROSE COMPLEX 100MG/5ML IV SCH (08:39)
[2019-04-02] MEDS: PSYLLIUM PACKET NG SCH (08:41)
[2019-04-02] MEDS: FUROSEMIDE 40 MG/4 ML IV SCH (08:41)
[2019-04-02 09:39] VITALS: BP 100/54
[2019-04-02 10:45] VITALS: BP 97/48
[2019-04-02] MEDS: ERTAPENEM 0.5 GM in SODIUM CHLORIDE 0.9% 50 ML IV SCH (14:30)
[2019-04-02 16:24] LABS: BASOPHILS # (AUTO) 0.05 x10^3/uL (0-0.1); BASOPHILS % (AUTO) 1 % (0-1); EOSINOPHILS # (AUTO) 0.31 x10^3/uL (0-0.4); EOSINOPHILS % (AUTO) 3 % (1-7); LYMPHOCYTES # (AUTO) 0.85 x10^3/uL (1-3.4); LYMPHOCYTES % (AUTO) 9 % (22-44); MD SCAN; MEAN CORPUSCULAR HEMOGLOBIN 30.3 pg (27.5-34.5); MEAN CORPUSCULAR HGB CONC 33.6 g/dL (33.2-36.2); MEAN CORPUSCULAR VOLUME 90.3 fL (81-97); MONOCYTES # (AUTO) 0.53 x10^3/uL (0.2-0.8); MONOCYTES % (AUTO) 6 % (2-9); NEUTROPHILS # (AUTO) 7.74 x10^3/uL (1.8-6.8); NEUTROPHILS % (AUTO) 82 % (42-75); PLATELET COUNT 372 x10^3/uL (130-400); RED BLOOD COUNT 2.65 x10^6/uL (4.38-5.82); RED CELL DISTRIBUTION WIDTH 18.5 % (9.4-14.8)
[2019-04-02] MEDS: FAMOTIDINE 20 MG/2 ML IV SCH (21:04)
[2019-04-03] MEDS: ALBUTEROL/IPRATROPIUM 2.5MG/0.5MG, 3 ML INLINE SCH ×6 (02:14→22:21)
[2019-04-03] MEDS: OXYcodone/APAP 5/325MG TABLET PO PRN ×2 (03:44→10:24)
[2019-04-03 04:07] LABS: BASOPHILS # (AUTO) 0.01 x10^3/uL (0-0.1); BASOPHILS % (AUTO) 0 % (0-1); EOSINOPHILS # (AUTO) 0.12 x10^3/uL (0-0.4); EOSINOPHILS % (AUTO) 2 % (1-7); LYMPHOCYTES # (AUTO) 1.04 x10^3/uL (1-3.4); LYMPHOCYTES % (AUTO) 14 % (22-44); MD NO; MEAN CORPUSCULAR HEMOGLOBIN 29.9 pg (27.5-34.5); MEAN CORPUSCULAR HGB CONC 33.1 g/dL (33.2-36.2); MEAN CORPUSCULAR VOLUME 90.2 fL (81-97); MEAN PLATELET VOLUME 7.3 fL (7.4-10.4); MONOCYTES # (AUTO) 0.47 x10^3/uL (0.2-0.8); MONOCYTES % (AUTO) 6 % (2-9); NEUTROPHILS # (AUTO) 5.94 x10^3/uL (1.8-6.8); NEUTROPHILS % (AUTO) 78 % (42-75); PLATELET COUNT 364 x10^3/uL (130-400); RED BLOOD COUNT 2.65 x10^6/uL (4.38-5.82); RED CELL DISTRIBUTION WIDTH 18.1 % (9.4-14.8)
[2019-04-03 04:18] LABS: ANION GAP 13 mmol/L (5-15); CALCIUM 8.5 mg/dL (8.5-10.1); CHLORIDE 108 mmol/L (98-107); CREATININE 4.85 mg/dL (0.7-1.3)
[2019-04-03 04:19] LABS: TRIGLYCERIDES 127 mg/dL (50-200)
[2019-04-03] MEDS: BUDESONIDE 0.5 MG/2 ML INHA INH SCH ×2 (06:32→18:38)
[2019-04-03] MEDS: SODIUM CHLORIDE FLUSH 10ML SYR IVF SCH ×2 (09:00→20:27)
[2019-04-03] MEDS: SERTRALINE 50MG TABLET PO SCH (10:11)
[2019-04-03] MEDS: QUETIAPINE 25MG TABLET PO SCH ×2 (10:12→20:27)
[2019-04-03] MEDS: PSYLLIUM PACKET NG SCH (10:12)
[2019-04-03] MEDS: ERTAPENEM 0.5 GM in SODIUM CHLORIDE 0.9% 50 ML IV SCH (15:11)
[2019-04-03] MEDS: FAMOTIDINE 20 MG/2 ML IV SCH (20:26)
[2019-04-04 02:51] LABS: ANION GAP 12 mmol/L (5-15); CALCIUM 8.4 mg/dL (8.5-10.1); CHLORIDE 110 mmol/L (98-107); CREATININE 4.76 mg/dL (0.7-1.3)
[2019-04-04] MEDS: ALBUTEROL/IPRATROPIUM 2.5MG/0.5MG, 3 ML INLINE SCH ×5 (03:00→23:04)
[2019-04-04 03:12] LABS: MEAN CORPUSCULAR HEMOGLOBIN 30.2 pg (27.5-34.5); MEAN CORPUSCULAR HGB CONC 33.1 g/dL (33.2-36.2); MEAN CORPUSCULAR VOLUME 91.1 fL (81-97); MEAN PLATELET VOLUME 7.2 fL (7.4-10.4); PLATELET COUNT 347 x10^3/uL (130-400); RED BLOOD COUNT 2.32 x10^6/uL (4.38-5.82); RED CELL DISTRIBUTION WIDTH 18.2 % (9.4-14.8)
[2019-04-04 03:41] LABS: BASOPHILS # (AUTO) 0.03 x10^3/uL (0-0.1); BASOPHILS % (AUTO) 0 % (0-1); EOSINOPHILS % (AUTO) 3 % (1-7); LYMPHOCYTES # (AUTO) 1.15 x10^3/uL (1-3.4); LYMPHOCYTES % (AUTO) 12 % (22-44); MD SCAN; MONOCYTES # (AUTO) 0.65 x10^3/uL (0.2-0.8); MONOCYTES % (AUTO) 7 % (2-9); NEUTROPHILS # (AUTO) 7.42 x10^3/uL (1.8-6.8); NEUTROPHILS % (AUTO) 78 % (42-75)
[2019-04-04] MEDS: OXYcodone/APAP 5/325MG TABLET PO PRN ×2 (05:19→11:17)
[2019-04-04] MEDS: BUDESONIDE 0.5 MG/2 ML INHA INH SCH ×2 (06:40→18:52)
[2019-04-04] MEDS: SODIUM CHLORIDE FLUSH 10ML SYR IVF SCH ×2 (11:15→21:13)
[2019-04-04] MEDS: IRON SUCROSE COMPLEX 100MG/5ML IV SCH (11:15)
[2019-04-04] MEDS: PSYLLIUM PACKET NG SCH (11:16)
[2019-04-04] MEDS: QUETIAPINE 25MG TABLET PO SCH ×2 (11:16→21:13)
[2019-04-04] MEDS: SERTRALINE 50MG TABLET PO SCH (11:16)
[2019-04-04] MEDS: ERTAPENEM 0.5 GM in SODIUM CHLORIDE 0.9% 50 ML IV SCH (13:50)
[2019-04-04] MEDS: FAMOTIDINE 20 MG/2 ML IV SCH (21:12)
[2019-04-05] MEDS: ALBUTEROL/IPRATROPIUM 2.5MG/0.5MG, 3 ML INLINE SCH ×6 (02:26→22:40)
[2019-04-05 05:12] LABS: MEAN CORPUSCULAR HEMOGLOBIN 30.9 pg (27.5-34.5); MEAN CORPUSCULAR HGB CONC 33.5 g/dL (33.2-36.2); MEAN CORPUSCULAR VOLUME 92.2 fL (81-97); MEAN PLATELET VOLUME 7.1 fL (7.4-10.4); PLATELET COUNT 350 x10^3/uL (130-400); RED BLOOD COUNT 2.45 x10^6/uL (4.38-5.82)
[2019-04-05 05:18] LABS: ANION GAP 13 mmol/L (5-15); CALCIUM 8.5 mg/dL (8.5-10.1); CHLORIDE 111 mmol/L (98-107)
[2019-04-05 05:20] LABS: CREATININE 4.86 mg/dL (0.7-1.3)
[2019-04-05 06:03] LABS: BASOPHILS # (AUTO) 0.02 x10^3/uL (0-0.1); BASOPHILS % (AUTO) 0 % (0-1); EOSINOPHILS # (AUTO) 0.05 x10^3/uL (0-0.4); EOSINOPHILS % (AUTO) 1 % (1-7); LYMPHOCYTES # (AUTO) 0.85 x10^3/uL (1-3.4); LYMPHOCYTES % (AUTO) 12 % (22-44); MD SCAN; MONOCYTES # (AUTO) 0.48 x10^3/uL (0.2-0.8); MONOCYTES % (AUTO) 7 % (2-9); NEUTROPHILS # (AUTO) 5.59 x10^3/uL (1.8-6.8); NEUTROPHILS % (AUTO) 80 % (42-75)
[2019-04-05] MEDS: BUDESONIDE 0.5 MG/2 ML INHA INH SCH ×2 (07:07→18:13)
[2019-04-05] MEDS ORDERED: SODIUM BICARB 8.4%,50ML SYR. 50 MEQ in SODIUM CHLORIDE 0.45% 1,000 ML IV SCH (07:30)
[2019-04-05] MEDS: LABETALOL 5MG/ML, 20ML IVPush PRN ×2 (07:41→16:08)
[2019-04-05] MEDS: PSYLLIUM PACKET NG SCH (08:48)
[2019-04-05] MEDS: AMLODIPINE 5 MG TABLET PO SCH ×2 (08:48→21:16)
[2019-04-05] MEDS: QUETIAPINE 25MG TABLET PO SCH ×2 (08:49→21:16)
[2019-04-05] MEDS: SERTRALINE 50MG TABLET PO SCH (08:49)
[2019-04-05] MEDS: HEPARIN 5,000 UNITS/ML, 1ML SQ SCH ×2 (08:49→20:30)
[2019-04-05] MEDS: SODIUM CHLORIDE FLUSH 10ML SYR IVF SCH ×2 (08:50→21:15)
[2019-04-05] MEDS: hydrALAzine 20 MG/ML, 1ML IV PRN ×2 (09:11→16:57)
[2019-04-05] MEDS: ERTAPENEM 0.5 GM in SODIUM CHLORIDE 0.9% 50 ML IV SCH (14:11)
[2019-04-05] MEDS: FAMOTIDINE 20 MG/2 ML IV SCH (21:15)
[2019-04-05] MEDS: LABETALOL 200 MG TABLET PO SCH (21:16)
[2019-04-06] MEDS: ALBUTEROL/IPRATROPIUM 2.5MG/0.5MG, 3 ML INLINE SCH ×6 (02:15→21:46)
[2019-04-06 04:46] LABS: BASOPHILS # (AUTO) 0.02 x10^3/uL (0-0.1); BASOPHILS % (AUTO) 0 % (0-1); EOSINOPHILS % (AUTO) 0 % (1-7); LYMPHOCYTES # (AUTO) 0.91 x10^3/uL (1-3.4); LYMPHOCYTES % (AUTO) 12 % (22-44); MD NO; MEAN CORPUSCULAR HEMOGLOBIN 29.8 pg (27.5-34.5); MEAN CORPUSCULAR HGB CONC 32.7 g/dL (33.2-36.2); MEAN CORPUSCULAR VOLUME 91.1 fL (81-97); MONOCYTES # (AUTO) 0.57 x10^3/uL (0.2-0.8); MONOCYTES % (AUTO) 8 % (2-9); NEUTROPHILS # (AUTO) 6.07 x10^3/uL (1.8-6.8); NEUTROPHILS % (AUTO) 80 % (42-75); PLATELET COUNT 348 x10^3/uL (130-400); RED BLOOD COUNT 2.54 x10^6/uL (4.38-5.82)
[2019-04-06 05:00] LABS: ANION GAP 13 mmol/L (5-15); CALCIUM 8.2 mg/dL (8.5-10.1); CHLORIDE 109 mmol/L (98-107); CREATININE 4.68 mg/dL (0.7-1.3); TRIGLYCERIDES 143 mg/dL (50-200)
[2019-04-06 05:04] LABS: PREALBUMIN 13.4 mg/dL (20.0-40.0)
[2019-04-06] MEDS: LABETALOL 200 MG TABLET PO SCH ×3 (05:48→21:35)
[2019-04-06] MEDS: BUDESONIDE 0.5 MG/2 ML INHA INH SCH ×2 (08:03→21:46)
[2019-04-06] MEDS: HEPARIN 5,000 UNITS/ML, 1ML SQ SCH ×2 (08:30→21:35)
[2019-04-06] MEDS: SERTRALINE 50MG TABLET PO SCH (09:00)
[2019-04-06] MEDS: QUETIAPINE 25MG TABLET PO SCH ×2 (09:00→21:36)
[2019-04-06] MEDS: AMLODIPINE 5 MG TABLET PO SCH ×2 (09:00→21:36)
[2019-04-06] MEDS: PSYLLIUM PACKET NG SCH (09:00)
[2019-04-06] MEDS: SODIUM CHLORIDE FLUSH 10ML SYR IVF SCH ×2 (09:00→21:36)
[2019-04-06] MEDS: IRON SUCROSE COMPLEX 100MG/5ML IV SCH (09:00)
[2019-04-06] MEDS ORDERED: LIDOCAINE 1%, 10ML ONE (09:15)
[2019-04-06] MEDS: CALCITRIOL 0.25 MCG CAPSULE PO SCH (09:30)
[2019-04-06] MEDS ORDERED: MIDAZOLAM 1 MG/ML, 2ML IVPush ONE (10:00)
[2019-04-06] MEDS ORDERED: MIDAZOLAM 1 MG/ML, 5ML ONE (12:14)
[2019-04-06] MEDS ORDERED: FENTANYL PF 100 MCG/2ML IVPush ONE (12:30)
[2019-04-06] MEDS: ERTAPENEM 0.5 GM in SODIUM CHLORIDE 0.9% 50 ML IV SCH (15:17)
[2019-04-06] MEDS: FAMOTIDINE 20 MG/2 ML IV SCH (21:36)
[2019-04-07] MEDS: ALBUTEROL/IPRATROPIUM 2.5MG/0.5MG, 3 ML INLINE SCH ×6 (02:15→22:14)
[2019-04-07 05:53] LABS: MEAN CORPUSCULAR HEMOGLOBIN 30.3 pg (27.5-34.5); MEAN CORPUSCULAR HGB CONC 33.1 g/dL (33.2-36.2); MEAN CORPUSCULAR VOLUME 91.5 fL (81-97); MEAN PLATELET VOLUME 6.7 fL (7.4-10.4); PLATELET COUNT 399 x10^3/uL (130-400); RED BLOOD COUNT 2.47 x10^6/uL (4.38-5.82); RED CELL DISTRIBUTION WIDTH 17.8 % (9.4-14.8)
[2019-04-07 06:05] LABS: CHLORIDE 108 mmol/L (98-107)
[2019-04-07 06:12] LABS: ALANINE AMINOTRANSFERASE 10 U/L (12-78); ALBUMIN 2.2 g/dL (3.4-5.0); ALKALINE PHOSPHATASE 72 U/L (45-117); ANION GAP 10 mmol/L (5-15); BILIRUBIN,TOTAL 0.4 mg/dL (0.2-1.0); CALCIUM 7.9 mg/dL (8.5-10.1); CREATININE 3.05 mg/dL (0.7-1.3); TOTAL PROTEIN 6.1 g/dL (6.4-8.2)
[2019-04-07 06:33] LABS: BASOPHILS # (AUTO) 0.02 x10^3/uL (0-0.1); BASOPHILS % (AUTO) 0 % (0-1); EOSINOPHILS # (AUTO) 0.41 x10^3/uL (0-0.4); EOSINOPHILS % (AUTO) 5 % (1-7); LYMPHOCYTES # (AUTO) 1.44 x10^3/uL (1-3.4); LYMPHOCYTES % (AUTO) 17 % (22-44); MD SCAN; MONOCYTES % (AUTO) 10 % (2-9); NEUTROPHILS # (AUTO) 5.64 x10^3/uL (1.8-6.8); NEUTROPHILS % (AUTO) 68 % (42-75)
[2019-04-07] MEDS: HEPARIN 5,000 UNITS/ML, 1ML SQ SCH ×2 (07:33→20:58)
[2019-04-07] MEDS: PSYLLIUM PACKET NG SCH (09:00)
[2019-04-07] MEDS: BUDESONIDE 0.5 MG/2 ML INHA INH SCH ×2 (09:00→18:34)
[2019-04-07] MEDS: IRON SUCROSE COMPLEX 100MG/5ML IV SCH (10:42)
[2019-04-07] MEDS: QUETIAPINE 25MG TABLET PO SCH ×2 (10:42→20:58)
[2019-04-07] MEDS: AMLODIPINE 5 MG TABLET PO SCH ×2 (10:43→20:58)
[2019-04-07] MEDS: SERTRALINE 50MG TABLET PO SCH (10:43)
[2019-04-07] MEDS: SODIUM CHLORIDE FLUSH 10ML SYR IVF SCH ×2 (10:48→21:36)
[2019-04-07] MEDS: LABETALOL 200 MG TABLET PO SCH ×3 (13:05→22:45)
[2019-04-07] MEDS: CALCITRIOL 0.25 MCG CAPSULE PO SCH (13:05)
[2019-04-07] MEDS: ERGOCALCIFEROL 50,000 UNIT CAPSULE PO SCH (13:05)
[2019-04-07] MEDS: ERTAPENEM 0.5 GM in SODIUM CHLORIDE 0.9% 50 ML IV SCH (13:06)
[2019-04-07 13:25] LABS: BASOPHILS # (AUTO) 0.03 x10^3/uL (0-0.1); BASOPHILS % (AUTO) 0 % (0-1); EOSINOPHILS # (AUTO) 0.33 x10^3/uL (0-0.4); EOSINOPHILS % (AUTO) 4 % (1-7); LYMPHOCYTES # (AUTO) 1.18 x10^3/uL (1-3.4); LYMPHOCYTES % (AUTO) 13 % (22-44); MD NO; MEAN CORPUSCULAR HEMOGLOBIN 29.7 pg (27.5-34.5); MEAN CORPUSCULAR HGB CONC 32.7 g/dL (33.2-36.2); MEAN CORPUSCULAR VOLUME 90.8 fL (81-97); MEAN PLATELET VOLUME 6.5 fL (7.4-10.4); MONOCYTES # (AUTO) 0.51 x10^3/uL (0.2-0.8); MONOCYTES % (AUTO) 6 % (2-9); NEUTROPHILS # (AUTO) 7.05 x10^3/uL (1.8-6.8); NEUTROPHILS % (AUTO) 78 % (42-75); PLATELET COUNT 387 x10^3/uL (130-400); RED BLOOD COUNT 2.56 x10^6/uL (4.38-5.82); RED CELL DISTRIBUTION WIDTH 17.6 % (9.4-14.8)
[2019-04-07] MEDS: FAMOTIDINE 20 MG/2 ML IV SCH (21:37)
[2019-04-08] MEDS: ALBUTEROL/IPRATROPIUM 2.5MG/0.5MG, 3 ML INLINE SCH ×6 (02:15→22:22)
[2019-04-08 04:48] LABS: BASOPHILS # (AUTO) 0.04 x10^3/uL (0-0.1); BASOPHILS % (AUTO) 0 % (0-1); EOSINOPHILS # (AUTO) 0.11 x10^3/uL (0-0.4); EOSINOPHILS % (AUTO) 1 % (1-7); LYMPHOCYTES # (AUTO) 1.44 x10^3/uL (1-3.4); LYMPHOCYTES % (AUTO) 15 % (22-44); MD NO; MEAN CORPUSCULAR HEMOGLOBIN 30.3 pg (27.5-34.5); MEAN PLATELET VOLUME 6.9 fL (7.4-10.4); MONOCYTES # (AUTO) 0.94 x10^3/uL (0.2-0.8); MONOCYTES % (AUTO) 10 % (2-9); NEUTROPHILS # (AUTO) 7.02 x10^3/uL (1.8-6.8); NEUTROPHILS % (AUTO) 74 % (42-75); PLATELET COUNT 378 x10^3/uL (130-400); RED BLOOD COUNT 2.65 x10^6/uL (4.38-5.82); RED CELL DISTRIBUTION WIDTH 17.2 % (9.4-14.8)
[2019-04-08 05:40] LABS: CHLORIDE 104 mmol/L (98-107)
[2019-04-08 05:47] LABS: ALANINE AMINOTRANSFERASE 17 U/L (12-78); ALBUMIN 2.4 g/dL (3.4-5.0); ALKALINE PHOSPHATASE 89 U/L (45-117); ANION GAP 10 mmol/L (5-15); BILIRUBIN,TOTAL 0.4 mg/dL (0.2-1.0); CALCIUM 8.2 mg/dL (8.5-10.1); CREATININE 2.43 mg/dL (0.7-1.3); TOTAL PROTEIN 6.8 g/dL (6.4-8.2)
[2019-04-08] MEDS: BUDESONIDE 0.5 MG/2 ML INHA INH SCH ×2 (06:53→18:14)
[2019-04-08] MEDS: HEPARIN 5,000 UNITS/ML, 1ML SQ SCH ×2 (07:38→20:38)
[2019-04-08] MEDS: LABETALOL 200 MG TABLET PO SCH ×3 (07:56→21:59)
[2019-04-08] MEDS: SODIUM CHLORIDE FLUSH 10ML SYR IVF SCH ×2 (07:57→20:38)
[2019-04-08] MEDS: AMLODIPINE 5 MG TABLET PO SCH ×2 (09:48→20:38)
[2019-04-08] MEDS: QUETIAPINE 25MG TABLET PO SCH ×2 (09:50→20:39)
[2019-04-08] MEDS: PSYLLIUM PACKET NG SCH (09:50)
[2019-04-08] MEDS: CALCITRIOL 0.25 MCG CAPSULE PO SCH (09:53)
[2019-04-08] MEDS: SERTRALINE 50MG TABLET PO SCH (09:53)
[2019-04-08] MEDS: ERTAPENEM 0.5 GM in SODIUM CHLORIDE 0.9% 50 ML IV SCH (13:54)
[2019-04-08] MEDS: FAMOTIDINE 20 MG/2 ML IV SCH (20:38)
[2019-04-09] MEDS: ALBUTEROL/IPRATROPIUM 2.5MG/0.5MG, 3 ML INLINE SCH ×6 (02:53→21:57)
[2019-04-09 03:02] LABS: BASOPHILS # (AUTO) 0.03 x10^3/uL (0-0.1); BASOPHILS % (AUTO) 0 % (0-1); EOSINOPHILS # (AUTO) 0.04 x10^3/uL (0-0.4); EOSINOPHILS % (AUTO) 0 % (1-7); LYMPHOCYTES # (AUTO) 1.45 x10^3/uL (1-3.4); LYMPHOCYTES % (AUTO) 14 % (22-44); MD NO; MEAN CORPUSCULAR HEMOGLOBIN 29.8 pg (27.5-34.5); MEAN CORPUSCULAR HGB CONC 32.7 g/dL (33.2-36.2); MEAN CORPUSCULAR VOLUME 91.2 fL (81-97); MEAN PLATELET VOLUME 6.8 fL (7.4-10.4); MONOCYTES % (AUTO) 9 % (2-9); NEUTROPHILS # (AUTO) 8.14 x10^3/uL (1.8-6.8); NEUTROPHILS % (AUTO) 77 % (42-75); PLATELET COUNT 343 x10^3/uL (130-400); RED BLOOD COUNT 2.63 x10^6/uL (4.38-5.82); RED CELL DISTRIBUTION WIDTH 17.3 % (9.4-14.8)
[2019-04-09 03:13] LABS: ALBUMIN 2.4 g/dL (3.4-5.0); ANION GAP 9 mmol/L (5-15); CALCIUM 8.3 mg/dL (8.5-10.1); CHLORIDE 99 mmol/L (98-107); CREATININE 1.89 mg/dL (0.7-1.3)
[2019-04-09] MEDS: LABETALOL 200 MG TABLET PO SCH ×3 (06:05→22:07)
[2019-04-09] MEDS: BUDESONIDE 0.5 MG/2 ML INHA INH SCH ×2 (07:20→21:00)
[2019-04-09] MEDS: HEPARIN 5,000 UNITS/ML, 1ML SQ SCH ×2 (08:43→20:40)
[2019-04-09] MEDS: PSYLLIUM PACKET NG SCH (08:44)
[2019-04-09] MEDS: CALCITRIOL 0.25 MCG CAPSULE PO SCH (08:44)
[2019-04-09] MEDS: AMLODIPINE 5 MG TABLET PO SCH ×2 (08:44→20:41)
[2019-04-09] MEDS: QUETIAPINE 25MG TABLET PO SCH ×2 (08:44→20:41)
[2019-04-09] MEDS: SODIUM CHLORIDE FLUSH 10ML SYR IVF SCH ×2 (08:44→20:41)
[2019-04-09] MEDS: SERTRALINE 50MG TABLET PO SCH (08:45)
[2019-04-09 10:59] LABS: CLOSTRIDIUM DIFFICILE ANTIGEN NEGATIVE; CLOSTRIDIUM DIFFICILE TOXIN NEGATIVE (Negative)
[2019-04-09] MEDS ORDERED: ERTAPENEM 1 GM in SODIUM CHLORIDE 0.9% 50 ML IV SCH (15:00)
[2019-04-09] MEDS: FAMOTIDINE 20 MG/2 ML IV SCH (20:40)
[2019-04-10] MEDS: ALBUTEROL/IPRATROPIUM 2.5MG/0.5MG, 3 ML INLINE SCH ×4 (02:26→14:02)
[2019-04-10 04:16] LABS: BASOPHILS # (AUTO) 0.04 x10^3/uL (0-0.1); BASOPHILS % (AUTO) 0 % (0-1); EOSINOPHILS # (AUTO) 0.44 x10^3/uL (0-0.4); EOSINOPHILS % (AUTO) 4 % (1-7); LYMPHOCYTES # (AUTO) 1.68 x10^3/uL (1-3.4); LYMPHOCYTES % (AUTO) 15 % (22-44); MD NO; MEAN CORPUSCULAR HEMOGLOBIN 29.6 pg (27.5-34.5); MEAN CORPUSCULAR HGB CONC 32.1 g/dL (33.2-36.2); MEAN CORPUSCULAR VOLUME 92.3 fL (81-97); MEAN PLATELET VOLUME 6.6 fL (7.4-10.4); MONOCYTES # (AUTO) 0.85 x10^3/uL (0.2-0.8); MONOCYTES % (AUTO) 8 % (2-9); NEUTROPHILS # (AUTO) 8.02 x10^3/uL (1.8-6.8); NEUTROPHILS % (AUTO) 73 % (42-75); PLATELET COUNT 374 x10^3/uL (130-400); RED CELL DISTRIBUTION WIDTH 18.8 % (9.4-14.8)
[2019-04-10] MEDS: LABETALOL 200 MG TABLET PO SCH ×2 (05:49→15:11)
[2019-04-10 07:13] LABS: ALANINE AMINOTRANSFERASE 16 U/L (12-78); ALBUMIN 2.3 g/dL (3.4-5.0); ANION GAP 11 mmol/L (5-15); CALCIUM 8.3 mg/dL (8.5-10.1); CHLORIDE 101 mmol/L (98-107)
[2019-04-10 07:15] LABS: ALKALINE PHOSPHATASE 76 U/L (45-117); BILIRUBIN,TOTAL 0.3 mg/dL (0.2-1.0); CREATININE 2.77 mg/dL (0.7-1.3); TOTAL PROTEIN 6.3 g/dL (6.4-8.2)
[2019-04-10] MEDS: PSYLLIUM PACKET NG SCH (08:03)
[2019-04-10] MEDS: AMLODIPINE 5 MG TABLET PO SCH (08:04)
[2019-04-10] MEDS: CALCITRIOL 0.25 MCG CAPSULE PO SCH (08:04)
[2019-04-10] MEDS: QUETIAPINE 25MG TABLET PO SCH (08:04)
[2019-04-10] MEDS: HEPARIN 5,000 UNITS/ML, 1ML SQ SCH (08:04)
[2019-04-10] MEDS: SERTRALINE 50MG TABLET PO SCH (08:41)
[2019-04-10] MEDS: SODIUM CHLORIDE FLUSH 10ML SYR IVF SCH (09:00)
[2019-04-10] MEDS: BUDESONIDE 0.5 MG/2 ML INHA INH SCH (10:49)
--- NOTE | 2019-04-10 12:27 | NUR ---
REC CONTINUED NPO STATUS WITH ONGOING ALTERNATIVE MEANS OF NUTRITION/HYDRATION. Addendum: 04/10/19 at 1227 by Magalis SIMMS Amended: Links added.
[2019-04-10] MEDS ORDERED: FAMO20VI3 IV (13:34)
[2019-04-10] MEDS ORDERED: ONDA4VIA60 IVPush (13:34)
[2019-04-10] MEDS ORDERED: BUDE0.5A INH (13:34)
[2019-04-10] MEDS ORDERED: PSYL3.4P8 NG (13:34)
[2019-04-10] MEDS ORDERED: IPRA3AMP30 INLINE (13:34)
[2019-04-10] MEDS ORDERED: AMLO-150 PO (13:34)
[2019-04-10] MEDS ORDERED: QUET25TA7 PO ×2 (13:34)
[2019-04-10] MEDS ORDERED: FENT50VI28 IVPush (13:34)
[2019-04-10] MEDS ORDERED: LABE200T6 PO (13:34)
[2019-04-10] MEDS ORDERED: ALPR0.254 PO (13:34)
[2019-04-10] MEDS ORDERED: SERT50TA28 PO (13:34)
[2019-04-10] MEDS ORDERED: OXYC1TAB7 PO (13:34)
[2019-04-10] MEDS ORDERED: ERGO500017 PO (13:34)
[2019-04-10] MEDS ORDERED: CALC0.25 PO (13:34)
[2019-04-10] MEDS ORDERED: ACET325T26 PO (13:34)
[2019-04-10] MEDS ORDERED: LOPE2CAP PO (13:34)
[2019-04-10] MEDS ORDERED: HEPA50002 SQ (13:34)
[2019-04-10] MEDS ORDERED: ERTAPENEM 0.5 GM in SODIUM CHLORIDE 0.9% 50 ML IV SCH (15:00)
[2019-04-10] MEDS ORDERED: FLU VAC QS 19-20(4YR UP)CEL/PF 0.5 ML IM-VACC ONE (18:30)
[2019-04-10] MEDS ORDERED: FLU VACCINE PER PHARMACY IM ONE (18:30)
== END 2019-04-10 19:17 | DRG 3 ==
LOC: ED 23:00 → EDBD 03-05 → EDIP 03-05 → 4NE 03-05 00:30 → CCU 03-08 18:10 → 4NE 03-09 11:23 → CCU 03-10 16:25 → ICU 03-25 07:20 → CCU 03-25 17:34 → ICU 04-07 08:03
PROVIDERS: ADMIT Family Medicine; ATTEND Internal Medicine
PROC: 0SRS0J9 Replacement of Left Hip Joint, Femoral Surface with Synthetic Substitute, Cemented, Open Approach (ICD-10-PCS; principal; 2019-03-06 07:30)
PROC: 0Y6P0Z3 Detachment at Right 1st Toe, Low, Open Approach (ICD-10-PCS; 2019-03-13)
PROC: 5A1955Z Respiratory Ventilation, Greater than 96 Consecutive Hours (ICD-10-PCS; 2019-03-13)
PROC: 0BH18EZ Insertion of Endotracheal Airway into Trachea, Via Natural or Artificial Opening Endoscopic (ICD-10-PCS; 2019-03-13)
PROC: 0Y6T0Z3 Detachment at Right 3rd Toe, Low, Open Approach (ICD-10-PCS; 2019-03-13)
PROC: 0B9B8ZZ Drainage of Left Lower Lobe Bronchus, Via Natural or Artificial Opening Endoscopic (ICD-10-PCS; 2019-03-13)
PROC: 0B968ZZ Drainage of Right Lower Lobe Bronchus, Via Natural or Artificial Opening Endoscopic (ICD-10-PCS; 2019-03-13)
PROC: 0BJ08ZZ Inspection of Tracheobronchial Tree, Via Natural or Artificial Opening Endoscopic (ICD-10-PCS; 2019-03-18)
PROC: 30243N1 Transfusion of Nonautologous Red Blood Cells into Central Vein, Percutaneous Approach (ICD-10-PCS; 2019-03-18)
PROC: 02HV33Z Insertion of Infusion Device into Superior Vena Cava, Percutaneous Approach (ICD-10-PCS; 2019-03-19)
PROC: B548ZZA Ultrasonography of Superior Vena Cava, Guidance (ICD-10-PCS; 2019-03-19)
PROC: 5A09357 Assistance with Respiratory Ventilation, Less than 24 Consecutive Hours, Continuous Positive Airway Pressure (ICD-10-PCS; 2019-03-21)
PROC: 5A1955Z Respiratory Ventilation, Greater than 96 Consecutive Hours (ICD-10-PCS; 2019-03-22)
PROC: 0BH18EZ Insertion of Endotracheal Airway into Trachea, Via Natural or Artificial Opening Endoscopic (ICD-10-PCS; 2019-03-22)
PROC: 5A09357 Assistance with Respiratory Ventilation, Less than 24 Consecutive Hours, Continuous Positive Airway Pressure (ICD-10-PCS; 2019-03-22)
PROC: 0T9B70Z Drainage of Bladder with Drainage Device, Via Natural or Artificial Opening (ICD-10-PCS; 2019-03-28)
PROC: 0W9930Z Drainage of Right Pleural Cavity with Drainage Device, Percutaneous Approach (ICD-10-PCS; 2019-03-30)
PROC: BB4BZZZ Ultrasonography of Pleura (ICD-10-PCS; 2019-03-30)
PROC: 0BNP4ZZ Release Left Pleura, Percutaneous Endoscopic Approach (ICD-10-PCS; 2019-04-01)
PROC: 0BNL4ZZ Release Left Lung, Percutaneous Endoscopic Approach (ICD-10-PCS; 2019-04-01)
PROC: 0B113F4 Bypass Trachea to Cutaneous with Tracheostomy Device, Percutaneous Approach (ICD-10-PCS; 2019-04-01 15:30)
PROC: 0DH63UZ Insertion of Feeding Device into Stomach, Percutaneous Approach (ICD-10-PCS; 2019-04-06)
PROC: 02HV33Z Insertion of Infusion Device into Superior Vena Cava, Percutaneous Approach (ICD-10-PCS; 2019-04-06)
PROC: B548ZZA Ultrasonography of Superior Vena Cava, Guidance (ICD-10-PCS; 2019-04-06)
PROC: 0TB13ZX Excision of Left Kidney, Percutaneous Approach, Diagnostic (ICD-10-PCS; 2019-04-06)
PROC: BT42ZZZ Ultrasonography of Left Kidney (ICD-10-PCS; 2019-04-06)
DX: S72.002A Fracture of unspecified part of neck of left femur, initial encounter for closed fracture (principal); J96.01 Acute respiratory failure with hypoxia; J18.9 Pneumonia, unspecified organism; J86.9 Pyothorax without fistula; G93.41 Metabolic encephalopathy; J15.6 Pneumonia due to other Gram-negative bacteria; N17.0 Acute kidney failure with tubular necrosis; E43 Unspecified severe protein-calorie malnutrition; J90 Pleural effusion, not elsewhere classified; K56.7 Ileus, unspecified; K52.1 Toxic gastroenteritis and colitis; I96 Gangrene, not elsewhere classified; E46 Unspecified protein-calorie malnutrition; L03.115 Cellulitis of right lower limb; M86.8X7 Other osteomyelitis, ankle and foot; F10.239 Alcohol dependence with withdrawal, unspecified; Z99.11 Dependence on respirator [ventilator] status; Z68.1 Body mass index [BMI] 19.9 or less, adult; E11.52 Type 2 diabetes mellitus with diabetic peripheral angiopathy with gangrene; E87.0 Hyperosmolality and hypernatremia; J98.11 Atelectasis; M48.56XA Collapsed vertebra, not elsewhere classified, lumbar region, initial encounter for fracture; N11.9 Chronic tubulo-interstitial nephritis, unspecified; J93.9 Pneumothorax, unspecified; E87.5 Hyperkalemia; N14.1 Nephropathy induced by other drugs, medicaments and biological substances; T36.95XA Adverse effect of unspecified systemic antibiotic, initial encounter; T50.8X5A Adverse effect of diagnostic agents, initial encounter; Y83.8 Other surgical procedures as the cause of abnormal reaction of the patient, or of later complication, without mention of misadventure at the time of the procedure; Y95 Nosocomial condition; F17.200 Nicotine dependence, unspecified, uncomplicated; E87.6 Hypokalemia; L89.892 Pressure ulcer of other site, stage 2; E11.69 Type 2 diabetes mellitus with other specified complication; W01.0XXA Fall on same level from slipping, tripping and stumbling without subsequent striking against object, initial encounter; R13.10 Dysphagia, unspecified; F32.9 Major depressive disorder, single episode, unspecified; E11.22 Type 2 diabetes mellitus with diabetic chronic kidney disease; N18.3 Chronic kidney disease, stage 3 (moderate); F41.9 Anxiety disorder, unspecified; D63.8 Anemia in other chronic diseases classified elsewhere; D72.829 Elevated white blood cell count, unspecified; E11.621 Type 2 diabetes mellitus with foot ulcer; F17.210 Nicotine dependence, cigarettes, uncomplicated; F28 Other psychotic disorder not due to a substance or known physiological condition; H50.9 Unspecified strabismus; L97.519 Non-pressure chronic ulcer of other part of right foot with unspecified severity; M21.20 Flexion deformity, unspecified site; R80.9 Proteinuria, unspecified; Y93.89 Activity, other specified; Y92.89 Other specified places as the place of occurrence of the external cause; Y99.8 Other external cause status
CPT/HCPCS: 31624; 32557; 36415; 36556; 36573; 36600; 49405; 50200; 71045; 71250; 71275; 72170; 74018; 74176; 76937; 76942; 77001; 80048; 80053; 80061; 80069; 80074; 80202; 80307; 81001; 82040; 82043; 82150; 82247; 82248; 82306; 82330; 82436; 82565; 82570; 82728; 82803; 82945; 82947; 82962; 83010; 83036; 83520; 83540; 83550; 83605; 83615; 83735; 83880; 83970; 83986; 84100; 84133; 84134; 84155; 84156; 84157; 84300; 84478; 84550; 85025; 85049; 85379; 85384; 85610; 85651; 85730; 86038; 86039; 86140; 86160; 86162; 86256; 86850; 86900; 86923; 87015; 87040; 87070; 87075; 87081; 87102; 87116; 87205; 87206; 87324; 87389; 88108; 88112; 88300; 88305; 88312; 88313; 88346; 88348; 88350; 89051; 90935; 93005; 93306; 93922; 94002; 94003; 94150; 94640; 94660; 94667; 94668; 96374; 96375; 99152; 99153; A9585; B4087; C1713; C1729; G0378; J0171; J0295; J0690; J0696; J1100; J1170; J1335; J1644; J1650; J1756; J1885; J1940; J2250; J2405; J2543; J2704; J2710; J3010; J3370; J3411; J3475; J3480; J7042; J7613; J7620; J7626; P9047; Q9967; C1751; C1762; C1769; C1776; J0360; J1205; J1642; J1815; J2060; J2270; J2370; J3490; J7030; J7050; J7512; P9016

== ENCOUNTER 2019-07-11 15:18 | Inpatient (IN) | payer MEDICARE ==
[~2019-07-11] VITALS: Ht 170.2 cm; Wt 55.0 kg
[~2019-07-11 15:18] MED LIST changes: +ACET325T26 PO; +ALPR0.254 PO; +AMLO-150 PO; +BUDE0.5A INH; +CALC0.25 PO; +ERGO500017 PO; +FAMO20VI3 IV; +FENT50VI28 IVPush; +HEPA50002 SQ; +IPRA3AMP30 INLINE; +LABE200T6 PO; +LOPE2CAP PO; +ONDA4VIA60 IVPush; +OXYC1TAB7 PO; +PSYL3.4P8 NG; +QUET25TA7 PO; +SERT50TA28 PO
--- NOTE | 2019-07-11 15:49 | NUR ---
BIBA FROM [facility] FOR UTI W/ FEVER. 102.7 RECTAL. LAST TYLENOL AT 1350. BP STABLE, 90/60 FOR EMS TO 128/78 W/ 1 L BOLUS. SKIN WARM AND DRY. AMS, [facility] 12 FOR EMS, 14 HERE AFTER FLUIDS. CONFUSED TO PLACE/EVENT/TIME. DIALYSIS PORT R CHEST. PIV BY EMS. ST 100S ON MONITOR. EKG AT BEDSIDE. BP STABLE. LUNGS CTAB 3.5. EXCORIATION ON COCCYX, RED/SHEKHAR. PT ?ANURIC, WAS CATHED AT [facility], RIPPED OUT HUGHES, ATTMEPT X2 BY [facility] W/ UNABLE TO GET UA. BLOOD FROMTIP OF PENIS NOTED. ABD SEMI FIRM, PT C/O PAIN ON PALP, BS PRESENT. PEG PRESENT, PEG SITE OK. AWAITING MD. EKG DONE. CALL ARCHIBALD.
--- NOTE | 2019-07-11 16:11 | NUR ---
MD AT BEDSIDE PLAN FLUIDS/LABS/TYLENOL.
[2019-07-11] MEDS ORDERED: ACETAMINOPHEN 325 MG SUPP ONE (16:20)
[2019-07-11] MEDS ORDERED: ACETAMINOPHEN 325 MG TABLET ONE (16:20)
[2019-07-11] MEDS ORDERED: LIDOCAINE GEL 2%, 5ML TP ONE (16:30)
[2019-07-11] MEDS ORDERED: SODIUM CHLORIDE 0.9% 1,000ML IVBOLUS ONE (16:30)
[2019-07-11] MEDS ORDERED: SODIUM CHLORIDE FLUSH 10ML SYR IVF ONE (16:30)
[2019-07-11] MEDS ORDERED: ACETAMINOPHEN 325 MG TABLET GT ONE (16:30)
[2019-07-11 17:05] LABS: ALANINE AMINOTRANSFERASE 104 U/L (12-78); ALBUMIN 2.8 g/dL (3.4-5.0); ANION GAP 8 mmol/L (5-15); CALCIUM 8.6 mg/dL (8.5-10.1); CHLORIDE 111 mmol/L (98-107); CREATININE 2.52 mg/dL (0.7-1.3)
[2019-07-11 17:07] LABS: ALKALINE PHOSPHATASE 143 U/L (45-117); BILIRUBIN,TOTAL 0.8 mg/dL (0.2-1.0); TOTAL PROTEIN 6.1 g/dL (6.4-8.2)
--- NOTE | 2019-07-11 17:11 | NUR ---
TO BE ADMITTED. CXR: ATELECTASIS VS PNA. LABS PENDING. DISCUSSED HUGHES INSERTION W/ DR HOYT, DR HOYT WAS TOLD BY UROLOGIST TO HAVE RN INSERT HUGHES. PER , OK TO USE 16 FR. PT PREMEDICATED W LIDO JELLMarah. LIQUID YELLOW BM X2, AWARE.
[2019-07-11 17:45] LABS: MD YES; MEAN CORPUSCULAR HEMOGLOBIN 31.1 pg (27.5-34.5); MEAN CORPUSCULAR HGB CONC 33.6 g/dL (33.2-36.2); MEAN CORPUSCULAR VOLUME 92.7 fL (81-97); MEAN PLATELET VOLUME 7.6 fL (7.4-10.4); PLATELET COUNT 64 x10^3/uL (130-400); RED BLOOD COUNT 4.03 x10^6/uL (4.38-5.82); RED CELL DISTRIBUTION WIDTH 14.9 % (9.4-14.8)
[2019-07-11 17:49] LABS: BAND#(MANUAL) 0.38 x10^3/uL; BANDS%(MANUAL) 19 % (0-7); EOS#(MANUAL) 0.04 x10^3/uL (0.0-0.4); EOS% (MANUAL) 2 % (1-7); LYMPH#(MANUAL) 0.08 x10^3/uL (1-3.4); LYMPHS% (MANUAL) 4 % (22-44); METAMYELOCYTES# (MANUAL) 0.14 x10^3/uL (0-0); METAMYELOCYTES% (MANUAL) 7 % (0-1); MYELOCYTES# (MANUAL) 0.02 x10^3/uL (0-0); MYELOCYTES% (MANUAL) 1 % (0-0); SEG#(MANUAL) 1.34 x10^3/uL (1.8-6.8); SEGS% (MANUAL) 67 % (42-75)
[2019-07-11 17:50] LABS: <PLATELET ESTIMATE> DECREASED; <PLT MORPHOLOGY> NORMAL PLT MORPH; <RBC MORPHOLOGY> NORMAL; PMNS WITH VACUOLES 1+
--- NOTE | 2019-07-11 17:54 | NUR ---
latham inserted. per urology orders: 13 cc sterile water into balloon. very small amt urine/blood out. bm cleaned ,stool sample sent. as
[2019-07-11] MEDS ORDERED: ONDANSETRON 2MG/ML, 2ML ONE (18:07)
--- NOTE | 2019-07-11 18:24 | NUR ---
REPORT TO YUMI MANCINI.
[2019-07-11] MEDS ORDERED: ONDANSETRON 2MG/ML, 2ML IVPush ONE (18:30)
[2019-07-11 18:31] LABS: MICROSCOPIC INDICATED
[2019-07-11 18:36] LABS: CULTURE INDICATED? YES
--- NOTE | 2019-07-11 18:47 | NUR ---
discussed abx w/ dr. hussein. pt received cefdinir po at home. pt will go to abd ct and get iv abx. pt transported to floor. as
[2019-07-11] MEDS ORDERED: CEFTRIAXONE PMX 1GM/50ML 50 ML IVPB ONE (19:00)
[2019-07-11 19:04] LABS: CLOSTRIDIUM DIFFICILE ANTIGEN NEGATIVE; CLOSTRIDIUM DIFFICILE TOXIN NEGATIVE (Negative)
[2019-07-11] MEDS ORDERED: hydrALAzine 20 MG/ML, 1ML IVPush PRN (19:30)
[2019-07-11] MEDS ORDERED: BISACODYL 10 MG SUPP PR PRN (19:30)
[2019-07-11] MEDS ORDERED: CEFTRIAXONE PMX 2GM/50ML 50 ML IV SCH (19:30)
[2019-07-11] MEDS ORDERED: LIDODERM 5% PATCH TD PRN (19:30)
[2019-07-11] MEDS ORDERED: ACETAMINOPHEN 325 MG TABLET PO PRN (19:30)
[2019-07-11] MEDS ORDERED: CEFTRIAXONE PMX 1GM/50ML 50 ML IV ONE (19:30)
[2019-07-11 19:39] VITALS: BP 156/80
[2019-07-11] MEDS: D5%-0.45NACL+KCL 20MEQ 1,000 ML IV SCH (19:48)
[2019-07-11] MEDS ORDERED: PHARMACY MAY ADJ FOR RENAL FX MC PRN (20:00)
[2019-07-11 21:44] VITALS: BP 139/75
[2019-07-11] MEDS: HEPARIN 5,000 UNITS/ML, 1ML SQ SCH (22:35)
[2019-07-11] MEDS: PIPERACILLIN/TAZO/PMX 3.375GM 50 ML IV SCH (22:36)
[2019-07-12] VITALS (15 sets, daily range): BP systolic 76–152; BP diastolic 41–93
[2019-07-12] MEDS ORDERED: ONDANSETRON 2MG/ML, 2ML IVPush PRN (00:30)
[2019-07-12] MEDS ORDERED: SODIUM CHLORIDE 0.9%, 500ML IVBOLUS ONE (01:30)
[2019-07-12 02:04] LABS: MEAN CORPUSCULAR HEMOGLOBIN 30.7 pg (27.5-34.5); MEAN CORPUSCULAR HGB CONC 32.6 g/dL (33.2-36.2); MEAN CORPUSCULAR VOLUME 94.2 fL (81-97); MEAN PLATELET VOLUME 8.7 fL (7.4-10.4); PLATELET COUNT 51 x10^3/uL (130-400); RED BLOOD COUNT 3.94 x10^6/uL (4.38-5.82); RED CELL DISTRIBUTION WIDTH 14.9 % (9.4-14.8)
[2019-07-12 02:10] LABS: ALANINE AMINOTRANSFERASE 98 U/L (12-78); ALBUMIN 2.5 g/dL (3.4-5.0); ANION GAP 12 mmol/L (5-15); CALCIUM 8.2 mg/dL (8.5-10.1); CHLORIDE 110 mmol/L (98-107); CREATININE 3.16 mg/dL (0.7-1.3)
[2019-07-12 02:13] LABS: ALKALINE PHOSPHATASE 68 U/L (45-117); BILIRUBIN,TOTAL 2.5 mg/dL (0.2-1.0); TOTAL PROTEIN 5.6 g/dL (6.4-8.2)
[2019-07-12 02:27] LABS: MD YES
[2019-07-12 02:30] LABS: <PLATELET ESTIMATE> DECREASED; <PLT MORPHOLOGY> NORMAL PLT MORPH; <RBC MORPHOLOGY> NORMAL; BANDS%(MANUAL) 24 % (0-7); EOS% (MANUAL) 4 % (1-7); LYMPHS% (MANUAL) 3 % (22-44); METAMYELOCYTES% (MANUAL) 1 % (0-1); MONOS% (MANUAL) 1 % (2-9); SEGS% (MANUAL) 67 % (42-75)
[2019-07-12] MEDS: PIPERACILLIN/TAZO/PMX 3.375GM 50 ML IV SCH ×4 (04:14→22:06)
[2019-07-12] MEDS: D5%-0.45NACL+KCL 20MEQ 1,000 ML IV SCH ×3 (05:07→20:21)
[2019-07-12] MEDS: LIDODERM REMOVE PATCH NOTE XX SCH ×2 (08:00→20:00)
[2019-07-12] MEDS ORDERED: MAGNESIUM SULFATE PMX 2GM/50ML 50 ML IV ONE (08:30)
[2019-07-12] MEDS ORDERED: CALCIUM GLUCONATE 4.6 MEQ in SODIUM CHLORIDE 0.9% 50 ML IV ONE (08:30)
[2019-07-12] MEDS: HEPARIN 5,000 UNITS/ML, 1ML SQ SCH (09:36)
[2019-07-12] MEDS: CIPROFLOXACIN/PMX 400MG/200ML 200 ML IV SCH (10:12)
[2019-07-12] MEDS ORDERED: SODIUM CHLORIDE 0.9% 1,000ML IVBOLUS ONE ×5 (11:00→17:30)
[2019-07-12] MEDS ORDERED: DEXTROSE 50%, 50ML SYRINGE IVPush ONE (11:00)
[2019-07-12] MEDS: NOREPINEPHRINE 4 MG in SODIUM CHLORIDE 0.9% 246 ML IV PRN ×3 (14:11→23:27)
[2019-07-12] MEDS ORDERED: SODIUM PHOSPHATE 30 MMOL in SODIUM CHLORIDE 0.9% 500 ML IV ONE (15:00)
[2019-07-12] MEDS ORDERED: DEXTROSE 50%, 50ML SYRINGE IVPush PRN (15:00)
[2019-07-12] MEDS ORDERED: GLUCAGON 1 MG IM PRN ×2 (15:00→22:00)
[2019-07-12] MEDS ORDERED: DEXTROSE 4 GM TAB.CHEW PO PRN ×2 (15:00→22:00)
[2019-07-12] MEDS ORDERED: VASOPRESSIN 100 UNIT in SODIUM CHLORIDE 0.9% 495 ML IV PRN (15:30)
[2019-07-12] MEDS: HYDROCORTISONE 100 MG INJ. IVPush SCH (15:57)
[2019-07-12] MEDS: ALBUMIN HUMAN 25% 100 ML IV SCH ×2 (17:20→21:48)
[2019-07-12 17:39] LABS: INTERNATIONAL NORMALIZED RATIO 2.57 (0.93-1.1)
[2019-07-12 17:40] LABS: ANION GAP 10 mmol/L (5-15); CALCIUM 7.6 mg/dL (8.5-10.1); CHLORIDE 116 mmol/L (98-107); CREATININE 3.43 mg/dL (0.7-1.3)
[2019-07-12] MEDS: FENTANYL PF 100 MCG/2ML IVPush PRN ×2 (17:43→20:18)
[2019-07-12] MEDS ORDERED: PHYTONADIONE 10 MG/ML, 1ML SQ ONE (18:00)
[2019-07-12] MEDS ORDERED: SODIUM BICARBONATE 1 MEQ/ML, 50ML VIAL IVPush ONE (18:00)
[2019-07-12] MEDS: SODIUM BICARB 8.4%,50ML SYR. 150 MEQ in DEXTROSE 5% 1,000 ML IV SCH (18:35)
[2019-07-12 18:55] LABS: MD YES
[2019-07-12 18:56] LABS: MEAN CORPUSCULAR HEMOGLOBIN 31.5 pg (27.5-34.5); MEAN CORPUSCULAR HGB CONC 33.9 g/dL (33.2-36.2); MEAN CORPUSCULAR VOLUME 92.8 fL (81-97); MEAN PLATELET VOLUME 10.1 fL (7.4-10.4); RED BLOOD COUNT 3.21 x10^6/uL (4.38-5.82)
[2019-07-12 18:59] LABS: PLATELET COUNT 34 x10^3/uL (130-400)
[2019-07-12 19:06] LABS: BAND#(MANUAL) 10.03 x10^3/uL; BANDS%(MANUAL) 58 % (0-7); LYMPH#(MANUAL) 1.21 x10^3/uL (1-3.4); LYMPHS% (MANUAL) 7 % (22-44); METAMYELOCYTES# (MANUAL) 2.08 x10^3/uL (0-0); METAMYELOCYTES% (MANUAL) 12 % (0-1); SEG#(MANUAL) 3.98 x10^3/uL (1.8-6.8); SEGS% (MANUAL) 23 % (42-75)
[2019-07-12 19:07] LABS: <PLATELET ESTIMATE> DECREASED; <PLT MORPHOLOGY> NORMAL PLT MORPH; <RBC MORPHOLOGY> NORMAL; PMNS WITH VACUOLES 1+
[2019-07-12 19:11] LABS: PLATELET (DIC) 35 x10^3/uL (130-400)
[2019-07-12 20:01] LABS: PROTIME 25.1 Seconds (9.6-11.5)
[2019-07-12 20:11] LABS: D-DIMER (DIC) > 35.20 ug/mlFEU (0.00-0.52)
[2019-07-12 20:14] LABS: PTT 200 Seconds (25-31)
[2019-07-12 20:15] LABS: FIBRINOGEN 94 mg/dL (200-340)
[2019-07-12] MEDS: SODIUM CHLORIDE FLUSH 10ML SYR IVF SCH (21:22)
[2019-07-12] MEDS: FILTER 0.22 MICRON IV PRN (21:59)
[2019-07-12] MEDS ORDERED: AMIODARONE 150 MG in DEXTROSE 5% 100 ML IV ONE (22:00)
[2019-07-12] MEDS ORDERED: LIDOCAINE-MPF 1%, 2ML ENDO PRN (22:00)
[2019-07-12] MEDS ORDERED: PHARMACY MAY ADJ FOR RENAL FX MC SCH (22:00)
[2019-07-12] MEDS: AMIODARONE 900 MG in DEXTROSE 5% 482 ML IV PRN (22:02)
[2019-07-12] MEDS: ALBUTEROL/IPRATROPIUM 2.5MG/0.5MG, 3 ML INLINE SCH (22:30)
[2019-07-12 22:34] LABS: MD YES; MEAN CORPUSCULAR HEMOGLOBIN 31.3 pg (27.5-34.5); MEAN CORPUSCULAR HGB CONC 33.9 g/dL (33.2-36.2); MEAN CORPUSCULAR VOLUME 92.5 fL (81-97); MEAN PLATELET VOLUME 10.1 fL (7.4-10.4); RED BLOOD COUNT 3.42 x10^6/uL (4.38-5.82); RED CELL DISTRIBUTION WIDTH 14.9 % (9.4-14.8)
[2019-07-12 22:36] LABS: PLATELET COUNT 40 x10^3/uL (130-400)
[2019-07-12 22:42] LABS: BAND#(MANUAL) 11.37 x10^3/uL; BANDS%(MANUAL) 47 % (0-7); LYMPH#(MANUAL) 1.21 x10^3/uL (1-3.4); LYMPHS% (MANUAL) 5 % (22-44); METAMYELOCYTES# (MANUAL) 4.36 x10^3/uL (0-0); METAMYELOCYTES% (MANUAL) 18 % (0-1); MONOS#(MANUAL) 1.21 x10^3/uL (0.3-2.7); MONOS% (MANUAL) 5 % (2-9); MYELOCYTES# (MANUAL) 0.48 x10^3/uL (0-0); MYELOCYTES% (MANUAL) 2 % (0-0); SEG#(MANUAL) 5.57 x10^3/uL (1.8-6.8); SEGS% (MANUAL) 23 % (42-75)
[2019-07-12 22:43] LABS: <PLATELET ESTIMATE> DECREASED; <PLT MORPHOLOGY> NORMAL PLT MORPH; <RBC MORPHOLOGY> NORMAL; PMNS WITH VACUOLES 1+
[2019-07-13] VITALS (14 sets, daily range): BP systolic 89–109; BP diastolic 50–62
[2019-07-13] MEDS: HYDROCORTISONE 100 MG INJ. IVPush SCH ×3 (00:32→15:41)
[2019-07-13] MEDS: PROPOFOL 100 ML IV PRN ×4 (00:33→22:33)
[2019-07-13] MEDS: ALBUTEROL/IPRATROPIUM 2.5MG/0.5MG, 3 ML INLINE SCH ×6 (02:40→22:00)
[2019-07-13] MEDS: SODIUM BICARB 8.4%,50ML SYR. 150 MEQ in DEXTROSE 5% 1,000 ML IV SCH ×3 (03:47→20:29)
[2019-07-13] MEDS: PIPERACILLIN/TAZO/PMX 3.375GM 50 ML IV SCH ×2 (03:47→09:30)
[2019-07-13 04:23] LABS: MEAN CORPUSCULAR HGB CONC 34.5 g/dL (33.2-36.2); MEAN CORPUSCULAR VOLUME 92.8 fL (81-97); MEAN PLATELET VOLUME 10.5 fL (7.4-10.4); RED CELL DISTRIBUTION WIDTH 15.4 % (9.4-14.8)
[2019-07-13 04:26] LABS: PLATELET COUNT 32 x10^3/uL (130-400)
[2019-07-13 04:27] LABS: INTERNATIONAL NORMALIZED RATIO 1.8 (0.93-1.1); PROTHROMBIN TIME 18.5 Seconds (9.6-11.5)
[2019-07-13 04:29] LABS: ALBUMIN 2.9 g/dL (3.4-5.0); BILIRUBIN, DIRECT 2.6 mg/dL (0.1-0.2)
[2019-07-13 04:30] LABS: MD YES
[2019-07-13] MEDS: D5%-0.45NACL+KCL 20MEQ 1,000 ML IV SCH (04:30)
[2019-07-13 04:31] LABS: BILIRUBIN,INDIRECT 0.7 mg/dL (0.0-2.0); BILIRUBIN,TOTAL 3.3 mg/dL (0.2-1.0); TOTAL PROTEIN 5.8 g/dL (6.4-8.2)
[2019-07-13 04:41] LABS: ALANINE AMINOTRANSFERASE 126 U/L (12-78); ALBUMIN 2.9 g/dL (3.4-5.0); ALKALINE PHOSPHATASE 32 U/L (45-117); ANION GAP 14 mmol/L (5-15); BILIRUBIN,TOTAL 3.3 mg/dL (0.2-1.0); CALCIUM 7.1 mg/dL (8.5-10.1); CHLORIDE 109 mmol/L (98-107); CREATININE 3.64 mg/dL (0.7-1.3); TOTAL PROTEIN 5.8 g/dL (6.4-8.2)
[2019-07-13 04:50] LABS: BAND#(MANUAL) 12.15 x10^3/uL; BANDS%(MANUAL) 49 % (0-7); LYMPHS% (MANUAL) 2 % (22-44); METAMYELOCYTES# (MANUAL) 4.71 x10^3/uL (0-0); METAMYELOCYTES% (MANUAL) 19 % (0-1); MONOS#(MANUAL) 1.24 x10^3/uL (0.3-2.7); MONOS% (MANUAL) 5 % (2-9); SEGS% (MANUAL) 25 % (42-75)
[2019-07-13 04:51] LABS: <PLATELET ESTIMATE> DECREASED; <PLT MORPHOLOGY> NORMAL PLT MORPH; <RBC MORPHOLOGY> NORMAL
[2019-07-13] MEDS: ALBUMIN HUMAN 25% 100 ML IV SCH ×3 (05:06→18:13)
[2019-07-13] MEDS: NOREPINEPHRINE 8 MG in SODIUM CHLORIDE 0.9% 242 ML IV PRN ×2 (05:10→18:12)
[2019-07-13] MEDS: SODIUM CHLORIDE FLUSH 10ML SYR IVF SCH ×4 (09:00→20:30)
[2019-07-13] MEDS: CIPROFLOXACIN/PMX 400MG/200ML 200 ML IV SCH (09:15)
[2019-07-13] MEDS: PANTOPRAZOLE 40 MG IV IVPush SCH (09:27)
[2019-07-13] MEDS: INSULIN LISPRO 100 UNITS/ML, PEN SQ-INSULIN SCH ×4 (09:49→20:30)
[2019-07-13 10:15] LABS: FIBRINOGEN 155 mg/dL (200-340); PROTIME 19.7 Seconds (9.6-11.5); PTT 57 Seconds (25-31)
[2019-07-13 10:16] LABS: D-DIMER (DIC) > 35.20 ug/mlFEU (0.00-0.52)
[2019-07-13 10:17] LABS: PLATELET (DIC) 34 x10^3/uL (130-400)
[2019-07-13] MEDS ORDERED: PROPOFOL 10 MG/ML, 100ML IV ONE (11:10)
[2019-07-13] MEDS ORDERED: ROCURONIUM 10MG/ML,5ML ONE (11:10)
[2019-07-13] MEDS ORDERED: ETOMIDATE 40 MG/20 ML ONE (11:10)
[2019-07-13] MEDS: PIPERACILLIN/TAZO/PMX 2.25GM 50 ML IVPB SCH ×2 (16:30→22:32)
[2019-07-13] MEDS ORDERED: PIPERACILLIN/TAZO/PMX 2.25GM 50 ML IVPB SCH (16:30)
[2019-07-13] MEDS: AMIODARONE 900 MG in DEXTROSE 5% 482 ML IV PRN (20:32)
[2019-07-14] MEDS: HYDROCORTISONE 100 MG INJ. IVPush SCH ×4 (00:26→23:35)
[2019-07-14] MEDS: ALBUMIN HUMAN 25% 100 ML IV SCH ×5 (00:26→23:35)
[2019-07-14] MEDS: ALBUTEROL/IPRATROPIUM 2.5MG/0.5MG, 3 ML INLINE SCH ×6 (02:00→22:00)
[2019-07-14] MEDS: INSULIN LISPRO 100 UNITS/ML, PEN SQ-INSULIN SCH ×4 (03:00→23:43)
[2019-07-14] MEDS: SODIUM BICARB 8.4%,50ML SYR. 150 MEQ in DEXTROSE 5% 1,000 ML IV SCH ×3 (03:48→21:29)
[2019-07-14] MEDS: PIPERACILLIN/TAZO/PMX 2.25GM 50 ML IVPB SCH ×4 (03:51→21:29)
[2019-07-14] MEDS: PROPOFOL 100 ML IV PRN ×3 (05:34→21:30)
[2019-07-14 05:54] LABS: INTERNATIONAL NORMALIZED RATIO 1.5 (0.93-1.1); PROTHROMBIN TIME 15.5 Seconds (9.6-11.5)
[2019-07-14 05:58] LABS: ANION GAP 13 mmol/L (5-15); CALCIUM 7.3 mg/dL (8.5-10.1); CHLORIDE 101 mmol/L (98-107); CREATININE 2.61 mg/dL (0.7-1.3)
[2019-07-14 06:09] LABS: D-DIMER (DIC) 17.71 ug/mlFEU (0.00-0.52); PROTIME 15.4 Seconds (9.6-11.5)
[2019-07-14] MEDS ORDERED: MAGNESIUM SULFATE PMX 2GM/50ML 50 ML IV ONE (06:30)
[2019-07-14] MEDS ORDERED: POTASSIUM CHLORIDE 40 MEQ in SODIUM CHLORIDE 0.9% 100 ML IV ONE ×2 (06:30→15:30)
[2019-07-14 06:54] LABS: MEAN CORPUSCULAR HEMOGLOBIN 31.2 pg (27.5-34.5); MEAN CORPUSCULAR HGB CONC 33.7 g/dL (33.2-36.2); MEAN CORPUSCULAR VOLUME 92.7 fL (81-97); MEAN PLATELET VOLUME 10.4 fL (7.4-10.4); RED BLOOD COUNT 2.81 x10^6/uL (4.38-5.82); RED CELL DISTRIBUTION WIDTH 15.6 % (9.4-14.8)
[2019-07-14 06:58] LABS: MD YES; PLATELET COUNT 27 x10^3/uL (130-400)
[2019-07-14 07:01] LABS: BAND#(MANUAL) 15.58 x10^3/uL; BANDS%(MANUAL) 44 % (0-7); LYMPH#(MANUAL) 1.42 x10^3/uL (1-3.4); LYMPHS% (MANUAL) 4 % (22-44); METAMYELOCYTES% (MANUAL) 13 % (0-1); MONOS#(MANUAL) 2.12 x10^3/uL (0.3-2.7); MONOS% (MANUAL) 6 % (2-9); SEG#(MANUAL) 11.68 x10^3/uL (1.8-6.8); SEGS% (MANUAL) 33 % (42-75)
[2019-07-14 07:03] LABS: <PLATELET ESTIMATE> DECREASED; <PLT MORPHOLOGY> NORMAL PLT MORPH; <RBC MORPHOLOGY> NORMAL; PMNS WITH VACUOLES 1+
[2019-07-14] MEDS: PANTOPRAZOLE 40 MG IV IVPush SCH (09:41)
[2019-07-14] MEDS: SODIUM CHLORIDE FLUSH 10ML SYR IVF SCH ×2 (09:42→21:29)
[2019-07-14] MEDS ORDERED: PHARMACOKINETIC CONSULTATION MC ONE (10:00)
[2019-07-14] MEDS ORDERED: VANCOMYCIN 1,400 MG in SODIUM CHLORIDE 0.9% 250 ML IV ONE (10:00)
[2019-07-14] MEDS ORDERED: PHARMACOKINETIC MONITORING MC PRN (10:00)
[2019-07-14] MEDS ORDERED: VANCOMYCIN PER PHARMACY MC PRN (10:00)
[2019-07-14] MEDS ORDERED: TRANEXAMIC ACID TP ONE (10:00)
--- NOTE | 2019-07-14 10:35 | NUR ---
TF Goal: w/ propofol: VITAL AF 1.2 @ 70ml/hr; without propofol: 75ml/hr
[2019-07-14] MEDS ORDERED: POTASSIUM CHLORIDE 10% 40 MEQ/30 ML UDC PO ONE (15:30)
[2019-07-14 15:37] LABS: MEAN CORPUSCULAR HEMOGLOBIN 31.3 pg (27.5-34.5); MEAN CORPUSCULAR HGB CONC 33.4 g/dL (33.2-36.2); MEAN CORPUSCULAR VOLUME 93.7 fL (81-97); MEAN PLATELET VOLUME 10.1 fL (7.4-10.4); RED BLOOD COUNT 2.68 x10^6/uL (4.38-5.82); RED CELL DISTRIBUTION WIDTH 15.6 % (9.4-14.8)
[2019-07-14 15:39] LABS: PLATELET COUNT 21 x10^3/uL (130-400)
[2019-07-14 16:43] LABS: MD YES
[2019-07-14 17:13] VITALS: BP 94/63
[2019-07-14 17:33] VITALS: BP 91/53
[2019-07-14 17:34] VITALS: BP 91/53
[2019-07-14 18:13] VITALS: BP 105/68
[2019-07-14 18:41] LABS: BAND#(MANUAL) 14.66 x10^3/uL; BANDS%(MANUAL) 43 % (0-7); LYMPH#(MANUAL) 1.36 x10^3/uL (1-3.4); LYMPHS% (MANUAL) 4 % (22-44); METAMYELOCYTES# (MANUAL) 3.07 x10^3/uL (0-0); METAMYELOCYTES% (MANUAL) 9 % (0-1); MONOS#(MANUAL) 2.73 x10^3/uL (0.3-2.7); MONOS% (MANUAL) 8 % (2-9); SEG#(MANUAL) 12.28 x10^3/uL (1.8-6.8); SEGS% (MANUAL) 36 % (42-75)
[2019-07-14 18:43] LABS: <PLATELET ESTIMATE> DECREASED; <PLT MORPHOLOGY> NORMAL PLT MORPH; ANISOCYTOSIS 1+
[2019-07-14 19:15] VITALS: BP 102/66
[2019-07-14] MEDS: NOREPINEPHRINE 8 MG in SODIUM CHLORIDE 0.9% 242 ML IV PRN (21:31)
[2019-07-15] MEDS: ALBUTEROL/IPRATROPIUM 2.5MG/0.5MG, 3 ML INLINE SCH ×6 (02:00→22:00)
[2019-07-15] MEDS: SODIUM BICARB 8.4%,50ML SYR. 150 MEQ in DEXTROSE 5% 1,000 ML IV SCH ×2 (03:22→10:20)
[2019-07-15] MEDS: PIPERACILLIN/TAZO/PMX 2.25GM 50 ML IVPB SCH ×4 (03:24→23:15)
[2019-07-15] MEDS: AMIODARONE 900 MG in DEXTROSE 5% 482 ML IV PRN (04:10)
[2019-07-15] MEDS: FILTER 0.22 MICRON IV PRN (04:10)
[2019-07-15] MEDS: INSULIN LISPRO 100 UNITS/ML, PEN SQ-INSULIN SCH ×4 (04:21→23:00)
[2019-07-15 04:51] LABS: MEAN CORPUSCULAR HEMOGLOBIN 31.5 pg (27.5-34.5); MEAN CORPUSCULAR HGB CONC 33.8 g/dL (33.2-36.2); MEAN CORPUSCULAR VOLUME 93.1 fL (81-97); RED BLOOD COUNT 2.66 x10^6/uL (4.38-5.82); RED CELL DISTRIBUTION WIDTH 15.3 % (9.4-14.8)
[2019-07-15 04:56] LABS: ANION GAP 9 mmol/L (5-15); CALCIUM 7.1 mg/dL (8.5-10.1); CHLORIDE 96 mmol/L (98-107)
[2019-07-15 04:58] LABS: CREATININE 2.97 mg/dL (0.7-1.3)
[2019-07-15 04:59] LABS: TRIGLYCERIDES 145 mg/dL (50-200)
[2019-07-15] MEDS: ALBUMIN HUMAN 25% 100 ML IV SCH (05:28)
[2019-07-15] MEDS: PROPOFOL 100 ML IV PRN ×2 (05:28→17:57)
[2019-07-15 05:38] LABS: MD YES
[2019-07-15 05:41] LABS: NRBC % (MANUAL) 1 % (0-1)
[2019-07-15 05:42] LABS: BAND#(MANUAL) 5.66 x10^3/uL; BANDS%(MANUAL) 17 % (0-7); LYMPH#(MANUAL) 0.33 x10^3/uL (1-3.4); LYMPHS% (MANUAL) 1 % (22-44); MONOS% (MANUAL) 9 % (2-9); SEG#(MANUAL) 24.31 x10^3/uL (1.8-6.8); SEGS% (MANUAL) 73 % (42-75)
[2019-07-15 05:45] LABS: <PLATELET ESTIMATE> DECREASED; <PLT MORPHOLOGY> NORMAL PLT MORPH; ANISOCYTOSIS 1+; MEAN PLATELET VOLUME 10.1 fL (7.4-10.4)
[2019-07-15 05:49] LABS: PLATELET COUNT 24 x10^3/uL (130-400)
[2019-07-15] MEDS ORDERED: POTASSIUM CHLORIDE 30 MEQ in SODIUM CHLORIDE 0.9% 100 ML IV ONE (07:00)
[2019-07-15] MEDS ORDERED: MICAFUNGIN 100 MG in SODIUM CHLORIDE 0.9% 100 ML IV SCH (10:00)
[2019-07-15] MEDS: PANTOPRAZOLE 40 MG IV IVPush SCH (11:23)
[2019-07-15] MEDS: SODIUM CHLORIDE FLUSH 10ML SYR IVF SCH ×2 (11:23→23:16)
[2019-07-15] MEDS: AMIODARONE 200 MG TABLET PO SCH ×2 (11:29→23:16)
[2019-07-15 13:31] VITALS: BP 105/64
[2019-07-15 13:52] VITALS: BP 117/68
[2019-07-15 14:51] VITALS: BP 111/70
[2019-07-15] MEDS: VANCOMYCIN 50 MG/ML ORAL SUSP PO SCH ×2 (14:54→23:16)
[2019-07-15 15:50] VITALS: BP 118/72
[2019-07-16] MEDS: ALBUTEROL/IPRATROPIUM 2.5MG/0.5MG, 3 ML INLINE SCH ×6 (02:00→22:35)
[2019-07-16] MEDS: PIPERACILLIN/TAZO/PMX 2.25GM 50 ML IVPB SCH (03:02)
[2019-07-16] MEDS: VANCOMYCIN 50 MG/ML ORAL SUSP PO SCH ×4 (03:02→20:56)
[2019-07-16] MEDS: INSULIN LISPRO 100 UNITS/ML, PEN SQ-INSULIN SCH ×3 (04:19→17:00)
[2019-07-16] MEDS: PROPOFOL 100 ML IV PRN (04:32)
[2019-07-16 05:06] LABS: MEAN CORPUSCULAR HEMOGLOBIN 31.5 pg (27.5-34.5); MEAN CORPUSCULAR HGB CONC 33.9 g/dL (33.2-36.2); MEAN CORPUSCULAR VOLUME 92.9 fL (81-97); RED BLOOD COUNT 2.77 x10^6/uL (4.38-5.82); RED CELL DISTRIBUTION WIDTH 15.9 % (9.4-14.8)
[2019-07-16 05:07] LABS: ANION GAP 10 mmol/L (5-15); CHLORIDE 102 mmol/L (98-107)
[2019-07-16 05:10] LABS: CREATININE 2.46 mg/dL (0.7-1.3)
[2019-07-16 05:13] LABS: D-DIMER (DIC) 6.1 ug/mlFEU (0.00-0.52); PROTIME 11.7 Seconds (9.6-11.5)
[2019-07-16 05:53] LABS: MD YES; MEAN PLATELET VOLUME 10.9 fL (7.4-10.4)
[2019-07-16 05:54] LABS: BAND#(MANUAL) 2.08 x10^3/uL; BANDS%(MANUAL) 10 % (0-7)
[2019-07-16 05:55] LABS: PLATELET COUNT 44 x10^3/uL (130-400)
[2019-07-16 05:56] LABS: EOS#(MANUAL) 0.21 x10^3/uL (0.0-0.4); EOS% (MANUAL) 1 % (1-7); LYMPH#(MANUAL) 1.87 x10^3/uL (1-3.4); LYMPHS% (MANUAL) 9 % (22-44); MONOS#(MANUAL) 1.46 x10^3/uL (0.3-2.7); MONOS% (MANUAL) 7 % (2-9); SEG#(MANUAL) 15.18 x10^3/uL (1.8-6.8); SEGS% (MANUAL) 73 % (42-75)
[2019-07-16 05:57] LABS: <PLATELET ESTIMATE> DECREASED; ANISOCYTOSIS 1+; LARGE PLATELETS 1+
[2019-07-16 05:58] LABS: PMNS WITH VACUOLES 1+
[2019-07-16] MEDS: AMIODARONE 200 MG TABLET PO SCH ×2 (08:40→20:57)
[2019-07-16] MEDS: SODIUM CHLORIDE FLUSH 10ML SYR IVF SCH ×2 (08:40→20:56)
[2019-07-16] MEDS: PANTOPRAZOLE 40 MG IV IVPush SCH (08:40)
[2019-07-16] MEDS ORDERED: VANCOMYCIN 1,400 MG in SODIUM CHLORIDE 0.9% 250 ML IV ONE (10:00)
[2019-07-16] MEDS ORDERED: ARANESP 100 MCG/ML **ESRD SQ SCH (10:00)
[2019-07-16] MEDS ORDERED: VANCOMYCIN PMX 1GM/200ML 200 ML IV SCH (11:00)
[2019-07-16] MEDS: CEFTRIAXONE PMX 2GM/50ML 50 ML IV SCH (13:38)
[2019-07-16 16:15] VITALS: BP 138/72
[2019-07-16 16:37] VITALS: BP 130/64
[2019-07-16 18:30] VITALS: BP 122/70
[2019-07-16 19:30] VITALS: BP 122/73
[2019-07-17] MEDS: INSULIN LISPRO 100 UNITS/ML, PEN SQ-INSULIN SCH ×5 (00:37→23:00)
[2019-07-17] MEDS: ALBUTEROL/IPRATROPIUM 2.5MG/0.5MG, 3 ML INLINE SCH ×6 (02:20→22:35)
[2019-07-17] MEDS: VANCOMYCIN 50 MG/ML ORAL SUSP PO SCH ×4 (03:32→20:15)
[2019-07-17 03:59] LABS: MEAN CORPUSCULAR HEMOGLOBIN 31.1 pg (27.5-34.5); MEAN CORPUSCULAR HGB CONC 33.6 g/dL (33.2-36.2); MEAN CORPUSCULAR VOLUME 92.7 fL (81-97); RED BLOOD COUNT 2.72 x10^6/uL (4.38-5.82)
[2019-07-17 04:00] LABS: MD YES; MEAN PLATELET VOLUME 9.9 fL (7.4-10.4); PLATELET COUNT 78 x10^3/uL (130-400)
[2019-07-17 04:02] LABS: ANION GAP 9 mmol/L (5-15); CALCIUM 8.2 mg/dL (8.5-10.1); CHLORIDE 105 mmol/L (98-107)
[2019-07-17 04:05] LABS: BAND#(MANUAL) 0.98 x10^3/uL; BANDS%(MANUAL) 5 % (0-7); EOS% (MANUAL) 1 % (1-7); LYMPH#(MANUAL) 2.16 x10^3/uL (1-3.4); LYMPHS% (MANUAL) 11 % (22-44); MONOS#(MANUAL) 1.18 x10^3/uL (0.3-2.7); MONOS% (MANUAL) 6 % (2-9); SEG#(MANUAL) 15.09 x10^3/uL (1.8-6.8); SEGS% (MANUAL) 77 % (42-75)
[2019-07-17 04:06] LABS: ANISOCYTOSIS 1+; PMNS WITH VACUOLES 1+
[2019-07-17 04:07] LABS: <PLATELET ESTIMATE> DECREASED; LARGE PLATELETS 1+
[2019-07-17 07:44] LABS: FIO2 40 %
[2019-07-17] MEDS: SODIUM CHLORIDE FLUSH 10ML SYR IVF SCH ×2 (09:00→21:28)
[2019-07-17] MEDS ORDERED: MIDAZOLAM 1 MG/ML, 5ML ONE (09:11)
[2019-07-17] MEDS: FENTANYL PF 100 MCG/2ML IVPush PRN (09:17)
[2019-07-17] MEDS: AMIODARONE 200 MG TABLET PO SCH ×2 (09:27→21:28)
[2019-07-17] MEDS: PANTOPRAZOLE 40 MG IV IVPush SCH (09:27)
[2019-07-17] MEDS: CHOLESTYRAMINE LIGHT 4GM PACKET PO SCH ×2 (09:27→21:28)
[2019-07-17] MEDS ORDERED: MIDAZOLAM 1 MG/ML, 2ML IVPush ONE (09:30)
[2019-07-17] MEDS ORDERED: LIDOCAINE 2%, 20ML ONE (12:00)
[2019-07-17] MEDS: CEFTRIAXONE PMX 2GM/50ML 50 ML IV SCH (13:40)
[2019-07-18] MEDS: ALBUTEROL/IPRATROPIUM 2.5MG/0.5MG, 3 ML INLINE SCH ×6 (02:54→22:33)
[2019-07-18] MEDS: VANCOMYCIN 50 MG/ML ORAL SUSP PO SCH ×4 (03:00→20:47)
[2019-07-18] MEDS: INSULIN LISPRO 100 UNITS/ML, PEN SQ-INSULIN SCH ×4 (05:00→22:55)
[2019-07-18 05:26] LABS: ANION GAP 11 mmol/L (5-15); CALCIUM 8.6 mg/dL (8.5-10.1); CHLORIDE 105 mmol/L (98-107)
[2019-07-18 05:27] LABS: CREATININE 3.23 mg/dL (0.7-1.3)
[2019-07-18 05:30] LABS: TRIGLYCERIDES 230 mg/dL (50-200)
[2019-07-18 06:07] LABS: MEAN CORPUSCULAR HEMOGLOBIN 31.4 pg (27.5-34.5); MEAN CORPUSCULAR HGB CONC 34.2 g/dL (33.2-36.2); MEAN CORPUSCULAR VOLUME 91.7 fL (81-97); MEAN PLATELET VOLUME 10.6 fL (7.4-10.4); PLATELET COUNT 107 x10^3/uL (130-400); RED CELL DISTRIBUTION WIDTH 15.9 % (9.4-14.8)
[2019-07-18 06:22] LABS: MD YES
[2019-07-18 06:30] LABS: BAND#(MANUAL) 3.12 x10^3/uL; BANDS%(MANUAL) 14 % (0-7); LYMPH#(MANUAL) 1.78 x10^3/uL (1-3.4); LYMPHS% (MANUAL) 8 % (22-44); MONOS#(MANUAL) 0.45 x10^3/uL (0.3-2.7); MONOS% (MANUAL) 2 % (2-9); SEG#(MANUAL) 16.95 x10^3/uL (1.8-6.8); SEGS% (MANUAL) 76 % (42-75)
[2019-07-18 06:31] LABS: <PLATELET ESTIMATE> DECREASED; ANISOCYTOSIS 1+
[2019-07-18 06:32] LABS: LARGE PLATELETS 1+
[2019-07-18] MEDS ORDERED: DEXMEDETOMIDINE 200 MCG in SODIUM CHLORIDE 0.9% 48 ML IV PRN (08:30)
[2019-07-18] MEDS: MEROPENEM 500 MG in SODIUM CHLORIDE 0.9% 100 ML IV SCH ×3 (08:40→22:42)
[2019-07-18] MEDS: PANTOPRAZOLE 40 MG IV IVPush SCH (08:44)
[2019-07-18] MEDS: SODIUM CHLORIDE FLUSH 10ML SYR IVF SCH ×2 (08:45→22:42)
[2019-07-18] MEDS: SODIUM CHLORIDE INHALATION 7%, 4 ML NPPB SCH ×2 (09:00→19:16)
[2019-07-18] MEDS: CHOLESTYRAMINE LIGHT 4GM PACKET PO SCH ×2 (09:35→22:42)
[2019-07-18] MEDS: QUETIAPINE 25MG TABLET PO SCH ×2 (09:35→20:47)
[2019-07-18] MEDS: AMIODARONE 200 MG TABLET PO SCH ×2 (09:35→20:47)
[2019-07-18] MEDS: FENTANYL PF 100 MCG/2ML IVPush PRN (10:59)
[2019-07-18 11:41] LABS: CLOSTRIDIUM DIFFICILE ANTIGEN POSITIVE; CLOSTRIDIUM DIFFICILE TOXIN NEGATIVE (Negative)
[2019-07-19] MEDS: ALBUTEROL/IPRATROPIUM 2.5MG/0.5MG, 3 ML INLINE SCH ×6 (02:34→22:34)
[2019-07-19] MEDS: VANCOMYCIN 50 MG/ML ORAL SUSP PO SCH ×4 (02:51→20:33)
[2019-07-19 04:37] LABS: MEAN CORPUSCULAR HEMOGLOBIN 31.4 pg (27.5-34.5); MEAN CORPUSCULAR HGB CONC 34.5 g/dL (33.2-36.2); MEAN CORPUSCULAR VOLUME 91.1 fL (81-97); MEAN PLATELET VOLUME 9.9 fL (7.4-10.4); PLATELET COUNT 136 x10^3/uL (130-400); RED BLOOD COUNT 2.78 x10^6/uL (4.38-5.82); RED CELL DISTRIBUTION WIDTH 15.8 % (9.4-14.8)
[2019-07-19 04:48] LABS: ANION GAP 8 mmol/L (5-15); CALCIUM 8.3 mg/dL (8.5-10.1); CHLORIDE 104 mmol/L (98-107); CREATININE 2.46 mg/dL (0.7-1.3)
[2019-07-19 04:50] LABS: MD YES
[2019-07-19 04:52] LABS: ANISOCYTOSIS 1+; BAND#(MANUAL) 0.83 x10^3/uL; BANDS%(MANUAL) 5 % (0-7); EOS#(MANUAL) 1.16 x10^3/uL (0.0-0.4); EOS% (MANUAL) 7 % (1-7); LYMPH#(MANUAL) 1.99 x10^3/uL (1-3.4); LYMPHS% (MANUAL) 12 % (22-44); METAMYELOCYTES# (MANUAL) 0.17 x10^3/uL (0-0); METAMYELOCYTES% (MANUAL) 1 % (0-1); MONOS#(MANUAL) 1.49 x10^3/uL (0.3-2.7); MONOS% (MANUAL) 9 % (2-9); PMNS WITH VACUOLES 1+; SEG#(MANUAL) 10.96 x10^3/uL (1.8-6.8); SEGS% (MANUAL) 66 % (42-75); TOXIC GRAN 1+
[2019-07-19 04:53] LABS: <PLATELET ESTIMATE> ADEQUATE; LARGE PLATELETS 1+
[2019-07-19] MEDS: INSULIN LISPRO 100 UNITS/ML, PEN SQ-INSULIN SCH ×4 (05:00→22:59)
[2019-07-19] MEDS: MEROPENEM 500 MG in SODIUM CHLORIDE 0.9% 100 ML IV SCH ×3 (06:09→22:59)
[2019-07-19] MEDS: SODIUM CHLORIDE INHALATION 7%, 4 ML NPPB SCH ×2 (06:45→19:05)
[2019-07-19] MEDS: AMIODARONE 200 MG TABLET PO SCH ×2 (08:35→20:43)
[2019-07-19] MEDS: PANTOPRAZOLE 40 MG IV IVPush SCH (08:35)
[2019-07-19] MEDS: SODIUM CHLORIDE FLUSH 10ML SYR IVF SCH ×2 (08:35→20:43)
[2019-07-19] MEDS: QUETIAPINE 25MG TABLET PO SCH ×2 (08:35→20:43)
[2019-07-20] MEDS: VANCOMYCIN 50 MG/ML ORAL SUSP PO SCH ×4 (02:45→21:07)
[2019-07-20] MEDS: ALBUTEROL/IPRATROPIUM 2.5MG/0.5MG, 3 ML INLINE SCH ×6 (03:48→23:28)
[2019-07-20 04:45] LABS: MEAN CORPUSCULAR HEMOGLOBIN 31.2 pg (27.5-34.5); MEAN CORPUSCULAR HGB CONC 34.6 g/dL (33.2-36.2); MEAN CORPUSCULAR VOLUME 90.2 fL (81-97); MEAN PLATELET VOLUME 9.5 fL (7.4-10.4); PLATELET COUNT 186 x10^3/uL (130-400); RED BLOOD COUNT 2.77 x10^6/uL (4.38-5.82); RED CELL DISTRIBUTION WIDTH 16.1 % (9.4-14.8)
[2019-07-20 04:57] LABS: ALBUMIN 2.3 g/dL (3.4-5.0); ANION GAP 8 mmol/L (5-15); CALCIUM 8.4 mg/dL (8.5-10.1); CHLORIDE 103 mmol/L (98-107)
[2019-07-20] MEDS: INSULIN LISPRO 100 UNITS/ML, PEN SQ-INSULIN SCH ×4 (05:00→22:24)
[2019-07-20 05:04] LABS: % IRON SATURATION 50 % (20-55); CREATININE 2.14 mg/dL (0.7-1.3); IRON LEVEL 75 mcg/dL (65-175); TOTAL IRON BINDING CAPACITY 151 mcg/dL (250-450)
[2019-07-20 05:38] LABS: MD YES
[2019-07-20 05:40] LABS: ANISOCYTOSIS 1+; BANDS%(MANUAL) 5 % (0-7); EOS#(MANUAL) 1.67 x10^3/uL (0.0-0.4); EOS% (MANUAL) 12 % (1-7); LYMPH#(MANUAL) 2.09 x10^3/uL (1-3.4); LYMPHS% (MANUAL) 15 % (22-44); METAMYELOCYTES# (MANUAL) 0.28 x10^3/uL (0-0); METAMYELOCYTES% (MANUAL) 2 % (0-1); MONOS#(MANUAL) 0.56 x10^3/uL (0.3-2.7); MONOS% (MANUAL) 4 % (2-9); POLYCHROMASIA 1+; SEG#(MANUAL) 8.62 x10^3/uL (1.8-6.8); SEGS% (MANUAL) 62 % (42-75)
[2019-07-20 05:41] LABS: <PLATELET ESTIMATE> ADEQUATE; <PLT MORPHOLOGY> NORMAL PLT MORPH
[2019-07-20] MEDS: MEROPENEM 500 MG in SODIUM CHLORIDE 0.9% 100 ML IV SCH ×3 (06:11→22:21)
[2019-07-20] MEDS: SODIUM CHLORIDE INHALATION 7%, 4 ML NPPB SCH ×2 (06:20→23:28)
[2019-07-20] MEDS ORDERED: SODIUM PHOSPHATE 20 MMOL in SODIUM CHLORIDE 0.9% 500 ML IV ONE (07:00)
[2019-07-20] MEDS: PANTOPRAZOLE 40 MG IV IVPush SCH (11:44)
[2019-07-20] MEDS: QUETIAPINE 25MG TABLET PO SCH ×2 (11:45→21:08)
[2019-07-20] MEDS: AMIODARONE 200 MG TABLET PO SCH ×2 (11:45→21:07)
[2019-07-20] MEDS: SODIUM CHLORIDE FLUSH 10ML SYR IVF SCH ×2 (11:47→21:07)
[2019-07-20] MEDS: HEPARIN 5,000 UNITS/ML, 1ML SQ SCH (15:12)
[2019-07-21] MEDS: HEPARIN 5,000 UNITS/ML, 1ML SQ SCH ×2 (03:27→14:30)
[2019-07-21] MEDS: VANCOMYCIN 50 MG/ML ORAL SUSP PO SCH ×4 (03:27→20:25)
[2019-07-21] MEDS: ALBUTEROL/IPRATROPIUM 2.5MG/0.5MG, 3 ML INLINE SCH ×6 (03:32→22:00)
[2019-07-21 04:25] LABS: BASOPHILS % (AUTO) 3 % (0-1); EOSINOPHILS # (AUTO) 0.53 x10^3/uL (0-0.4); EOSINOPHILS % (AUTO) 6 % (1-7); LYMPHOCYTES # (AUTO) 1.48 x10^3/uL (1-3.4); LYMPHOCYTES % (AUTO) 17 % (22-44); MD NO; MEAN CORPUSCULAR HEMOGLOBIN 31.4 pg (27.5-34.5); MEAN CORPUSCULAR HGB CONC 34.5 g/dL (33.2-36.2); MEAN CORPUSCULAR VOLUME 91.1 fL (81-97); MEAN PLATELET VOLUME 9.5 fL (7.4-10.4); MONOCYTES # (AUTO) 0.23 x10^3/uL (0.2-0.8); MONOCYTES % (AUTO) 3 % (2-9); NEUTROPHILS # (AUTO) 6.39 x10^3/uL (1.8-6.8); NEUTROPHILS % (AUTO) 72 % (42-75); PLATELET COUNT 224 x10^3/uL (130-400); RED BLOOD COUNT 2.63 x10^6/uL (4.38-5.82); RED CELL DISTRIBUTION WIDTH 15.9 % (9.4-14.8)
[2019-07-21 04:30] LABS: ANION GAP 10 mmol/L (5-15); CALCIUM 7.7 mg/dL (8.5-10.1); CHLORIDE 103 mmol/L (98-107); CREATININE 1.95 mg/dL (0.7-1.3); TRIGLYCERIDES 284 mg/dL (50-200)
[2019-07-21] MEDS: INSULIN LISPRO 100 UNITS/ML, PEN SQ-INSULIN SCH ×4 (05:00→23:00)
[2019-07-21] MEDS: MEROPENEM 500 MG in SODIUM CHLORIDE 0.9% 100 ML IV SCH (06:08)
[2019-07-21] MEDS: SODIUM CHLORIDE INHALATION 7%, 4 ML NPPB SCH (09:00)
[2019-07-21] MEDS: AMIODARONE 200 MG TABLET PO SCH ×2 (11:28→20:25)
[2019-07-21] MEDS: PANTOPRAZOLE 40 MG IV IVPush SCH (11:29)
[2019-07-21] MEDS: SODIUM CHLORIDE FLUSH 10ML SYR IVF SCH ×2 (11:29→20:26)
[2019-07-22] MEDS: AMIODARONE 200 MG TABLET PO SCH ×3 (00:18→21:29)
[2019-07-22] MEDS: VANCOMYCIN 50 MG/ML ORAL SUSP PO SCH ×5 (00:18→23:52)
[2019-07-22] MEDS: ALBUTEROL/IPRATROPIUM 2.5MG/0.5MG, 3 ML INLINE SCH ×6 (02:10→22:00)
[2019-07-22] MEDS: HEPARIN 5,000 UNITS/ML, 1ML SQ SCH (02:35)
[2019-07-22] MEDS: INSULIN LISPRO 100 UNITS/ML, PEN SQ-INSULIN SCH ×4 (04:39→23:00)
[2019-07-22 05:01] LABS: BASOPHILS # (AUTO) 0.01 x10^3/uL (0-0.1); BASOPHILS % (AUTO) 0 % (0-1); EOSINOPHILS # (AUTO) 0.36 x10^3/uL (0-0.4); EOSINOPHILS % (AUTO) 5 % (1-7); LYMPHOCYTES # (AUTO) 1.14 x10^3/uL (1-3.4); LYMPHOCYTES % (AUTO) 14 % (22-44); MD NO; MEAN CORPUSCULAR HEMOGLOBIN 30.4 pg (27.5-34.5); MEAN CORPUSCULAR VOLUME 92.2 fL (81-97); MEAN PLATELET VOLUME 8.8 fL (7.4-10.4); MONOCYTES # (AUTO) 0.78 x10^3/uL (0.2-0.8); MONOCYTES % (AUTO) 10 % (2-9); NEUTROPHILS # (AUTO) 5.69 x10^3/uL (1.8-6.8); NEUTROPHILS % (AUTO) 71 % (42-75); PLATELET COUNT 249 x10^3/uL (130-400); RED BLOOD COUNT 2.62 x10^6/uL (4.38-5.82)
[2019-07-22 05:02] LABS: ANION GAP 8 mmol/L (5-15); CHLORIDE 102 mmol/L (98-107)
[2019-07-22 05:03] LABS: CREATININE 2.86 mg/dL (0.7-1.3)
[2019-07-22] MEDS ORDERED: MICROFIBRILLAR COLLAGEN 1 GM TP ONE ×2 (07:00→15:21)
[2019-07-22] MEDS: SODIUM CHLORIDE FLUSH 10ML SYR IVF SCH ×2 (08:21→21:29)
[2019-07-22] MEDS: PANTOPRAZOLE 40 MG IV IVPush SCH (08:21)
[2019-07-22 12:41] LABS: INTERNATIONAL NORMALIZED RATIO 1.1 (0.93-1.1); PROTHROMBIN TIME 11.7 Seconds (9.6-11.5)
[2019-07-22] MEDS ORDERED: LIDOCAINE 1%, 10ML ONE (13:58)
[2019-07-22] MEDS ORDERED: MICROFIBRILLAR COLLAGEN 70X35X1 DRESSING TP ONE (15:00)
[2019-07-23 02:30] VITALS: BP 136/57
[2019-07-23 02:45] VITALS: BP 142/61
[2019-07-23] MEDS: ALBUTEROL/IPRATROPIUM 2.5MG/0.5MG, 3 ML INLINE SCH ×4 (02:50→15:35)
[2019-07-23] MEDS: INSULIN LISPRO 100 UNITS/ML, PEN SQ-INSULIN SCH ×3 (05:00→17:00)
[2019-07-23 05:02] VITALS: BP 140/67
[2019-07-23] MEDS: VANCOMYCIN 50 MG/ML ORAL SUSP PO SCH ×3 (05:34→17:14)
[2019-07-23 05:43] LABS: ANION GAP 9 mmol/L (5-15); CALCIUM 7.7 mg/dL (8.5-10.1); CHLORIDE 101 mmol/L (98-107)
[2019-07-23 05:44] LABS: CREATININE 1.99 mg/dL (0.7-1.3)
[2019-07-23 05:45] LABS: MEAN CORPUSCULAR HEMOGLOBIN 30.3 pg (27.5-34.5); MEAN CORPUSCULAR HGB CONC 32.8 g/dL (33.2-36.2); MEAN CORPUSCULAR VOLUME 92.2 fL (81-97); MEAN PLATELET VOLUME 9.2 fL (7.4-10.4); PLATELET COUNT 230 x10^3/uL (130-400); RED BLOOD COUNT 2.45 x10^6/uL (4.38-5.82); RED CELL DISTRIBUTION WIDTH 16.1 % (9.4-14.8)
[2019-07-23 06:00] VITALS: BP 139/61
[2019-07-23 06:21] LABS: BASOPHILS # (AUTO) 0.03 x10^3/uL (0-0.1); BASOPHILS % (AUTO) 0 % (0-1); EOSINOPHILS # (AUTO) 0.22 x10^3/uL (0-0.4); EOSINOPHILS % (AUTO) 4 % (1-7); LYMPHOCYTES # (AUTO) 1.11 x10^3/uL (1-3.4); LYMPHOCYTES % (AUTO) 17 % (22-44); MD SCAN; MONOCYTES % (AUTO) 11 % (2-9); NEUTROPHILS # (AUTO) 4.37 x10^3/uL (1.8-6.8); NEUTROPHILS % (AUTO) 68 % (42-75)
[2019-07-23] MEDS: AMIODARONE 200 MG TABLET PO SCH ×2 (07:45→21:35)
[2019-07-23] MEDS: SODIUM CHLORIDE FLUSH 10ML SYR IVF SCH ×2 (07:46→21:34)
[2019-07-23] MEDS: PANTOPRAZOLE 40 MG IV IVPush SCH (07:46)
[2019-07-23] MEDS ORDERED: ARANESP 100 MCG/ML **ESRD SQ SCH (09:24)
--- NOTE | 2019-07-23 09:31 | NUR ---
07/23-TF GOAL: NEPRO @ 50ML/HR
[2019-07-23] MEDS: ALBUTEROL/IPRATROPIUM 2.5MG/0.5MG, 3 ML NPPB SCH (22:21)
[2019-07-24] MEDS: INSULIN LISPRO 100 UNITS/ML, PEN SQ-INSULIN SCH ×5 (00:06→23:00)
[2019-07-24] MEDS: VANCOMYCIN 50 MG/ML ORAL SUSP PO SCH ×5 (00:07→23:35)
[2019-07-24] MEDS: ALBUTEROL/IPRATROPIUM 2.5MG/0.5MG, 3 ML NPPB SCH ×6 (02:30→22:30)
[2019-07-24 05:47] LABS: CALCIUM 7.8 mg/dL (8.5-10.1); CHLORIDE 100 mmol/L (98-107)
[2019-07-24 05:49] LABS: MEAN CORPUSCULAR HGB CONC 33.8 g/dL (33.2-36.2); MEAN CORPUSCULAR VOLUME 91.8 fL (81-97); PLATELET COUNT 295 x10^3/uL (130-400); RED BLOOD COUNT 2.34 x10^6/uL (4.38-5.82); RED CELL DISTRIBUTION WIDTH 16.5 % (9.4-14.8)
[2019-07-24 05:50] LABS: ANION GAP 10 mmol/L (5-15); CREATININE 2.93 mg/dL (0.7-1.3); TRIGLYCERIDES 185 mg/dL (50-200)
[2019-07-24 06:32] LABS: BASOPHILS # (AUTO) 0.07 x10^3/uL (0-0.1); BASOPHILS % (AUTO) 1 % (0-1); EOSINOPHILS # (AUTO) 0.18 x10^3/uL (0-0.4); EOSINOPHILS % (AUTO) 2 % (1-7); LYMPHOCYTES # (AUTO) 1.45 x10^3/uL (1-3.4); LYMPHOCYTES % (AUTO) 17 % (22-44); MD SCAN; MONOCYTES # (AUTO) 0.61 x10^3/uL (0.2-0.8); MONOCYTES % (AUTO) 7 % (2-9); NEUTROPHILS # (AUTO) 6.22 x10^3/uL (1.8-6.8); NEUTROPHILS % (AUTO) 73 % (42-75)
[2019-07-24] MEDS: PANTOPRAZOLE 40 MG IV IVPush SCH (09:23)
[2019-07-24] MEDS: AMIODARONE 200 MG TABLET PO SCH ×2 (09:24→21:18)
[2019-07-24] MEDS: SODIUM CHLORIDE FLUSH 10ML SYR IVF SCH ×2 (09:24→21:19)
[2019-07-24] MEDS: FENTANYL PF 100 MCG/2ML IVPush PRN ×2 (10:24→21:29)
[2019-07-24] MEDS ORDERED: LIDOCAINE 1%, 20ML ONE (15:24)
[2019-07-24] MEDS ORDERED: FENTANYL PF 100 MCG/2ML ONE ×2 (15:43)
[2019-07-24] MEDS ORDERED: NALOXONE 1 MG/ML, 2ML ONE (15:43)
[2019-07-24] MEDS ORDERED: MIDAZOLAM 1 MG/ML, 5ML ONE (15:43)
[2019-07-24] MEDS ORDERED: FLUMAZENIL 0.1 MG/1 ML, 5ML ONE (15:43)
[2019-07-24] MEDS: PROPOFOL 100 ML IV PRN (21:27)
[2019-07-24] MEDS: DEXTROSE 50%, 50ML SYRINGE IVPush PRN (23:51)
[2019-07-25] MEDS: ALBUTEROL/IPRATROPIUM 2.5MG/0.5MG, 3 ML NPPB SCH ×6 (02:20→23:45)
[2019-07-25] MEDS: PROPOFOL 100 ML IV PRN ×2 (03:14→11:39)
[2019-07-25] MEDS: INSULIN LISPRO 100 UNITS/ML, PEN SQ-INSULIN SCH ×4 (05:00→23:00)
[2019-07-25 05:43] LABS: ANION GAP 9 mmol/L (5-15); CALCIUM 7.9 mg/dL (8.5-10.1); CHLORIDE 101 mmol/L (98-107); CREATININE 3.73 mg/dL (0.7-1.3)
[2019-07-25] MEDS: VANCOMYCIN 50 MG/ML ORAL SUSP PO SCH ×4 (05:57→22:57)
[2019-07-25 07:47] LABS: MEAN CORPUSCULAR HEMOGLOBIN 30.7 pg (27.5-34.5); MEAN CORPUSCULAR HGB CONC 33.1 g/dL (33.2-36.2); MEAN CORPUSCULAR VOLUME 92.7 fL (81-97); PLATELET COUNT 351 x10^3/uL (130-400); RED BLOOD COUNT 2.41 x10^6/uL (4.38-5.82); RED CELL DISTRIBUTION WIDTH 16.8 % (9.4-14.8)
[2019-07-25] MEDS: PANTOPRAZOLE 40 MG IV IVPush SCH (07:55)
[2019-07-25] MEDS: SODIUM CHLORIDE FLUSH 10ML SYR IVF SCH ×2 (08:02→21:22)
[2019-07-25 08:07] LABS: BASOPHILS # (AUTO) 0.02 x10^3/uL (0-0.1); BASOPHILS % (AUTO) 0 % (0-1); EOSINOPHILS # (AUTO) 0.26 x10^3/uL (0-0.4); EOSINOPHILS % (AUTO) 3 % (1-7); LYMPHOCYTES # (AUTO) 1.66 x10^3/uL (1-3.4); LYMPHOCYTES % (AUTO) 21 % (22-44); MD SCAN; MONOCYTES # (AUTO) 0.71 x10^3/uL (0.2-0.8); MONOCYTES % (AUTO) 9 % (2-9); NEUTROPHILS # (AUTO) 5.22 x10^3/uL (1.8-6.8); NEUTROPHILS % (AUTO) 66 % (42-75)
[2019-07-25] MEDS: AMIODARONE 200 MG TABLET PO SCH ×2 (09:21→21:22)
[2019-07-25] MEDS: FENTANYL PF 100 MCG/2ML IVPush PRN (22:57)
[2019-07-26] MEDS: PROPOFOL 100 ML IV PRN ×3 (02:37→18:42)
[2019-07-26] MEDS: ALBUTEROL/IPRATROPIUM 2.5MG/0.5MG, 3 ML NPPB SCH ×6 (03:00→23:21)
[2019-07-26 04:30] LABS: MEAN CORPUSCULAR HEMOGLOBIN 31.7 pg (27.5-34.5); MEAN CORPUSCULAR HGB CONC 34.6 g/dL (33.2-36.2); MEAN CORPUSCULAR VOLUME 91.6 fL (81-97); MEAN PLATELET VOLUME 8.8 fL (7.4-10.4); PLATELET COUNT 349 x10^3/uL (130-400); RED CELL DISTRIBUTION WIDTH 15.9 % (9.4-14.8)
[2019-07-26 04:40] LABS: ANION GAP 8 mmol/L (5-15); CALCIUM 7.9 mg/dL (8.5-10.1); CHLORIDE 100 mmol/L (98-107); CREATININE 2.63 mg/dL (0.7-1.3)
[2019-07-26 04:47] LABS: MD YES
[2019-07-26 04:52] LABS: ANISOCYTOSIS 1+; BANDS%(MANUAL) 6 % (0-7); BASOS#(MANUAL) 0.07 x10^3/uL (0-0.1); BASOS% (MANUAL) 1 % (0-1); EOS% (MANUAL) 6 % (1-7); LYMPH#(MANUAL) 1.68 x10^3/uL (1-3.4); LYMPHS% (MANUAL) 25 % (22-44); MONOS#(MANUAL) 0.27 x10^3/uL (0.3-2.7); MONOS% (MANUAL) 4 % (2-9); OVALOCYTES 1+; SEG#(MANUAL) 3.89 x10^3/uL (1.8-6.8); SEGS% (MANUAL) 58 % (42-75)
[2019-07-26 04:53] LABS: <PLATELET ESTIMATE> ADEQUATE; <PLT MORPHOLOGY> NORMAL PLT MORPH; SMUDGE CELLS 1+
[2019-07-26] MEDS: INSULIN LISPRO 100 UNITS/ML, PEN SQ-INSULIN SCH ×4 (04:59→23:00)
[2019-07-26] MEDS: VANCOMYCIN 50 MG/ML ORAL SUSP PO SCH ×4 (06:04→23:44)
[2019-07-26] MEDS: SODIUM CHLORIDE FLUSH 10ML SYR IVF SCH ×2 (07:43→21:20)
[2019-07-26] MEDS: PANTOPRAZOLE 40 MG IV IVPush SCH (07:43)
[2019-07-26] MEDS: AMIODARONE 200 MG TABLET PO SCH ×2 (07:43→21:19)
[2019-07-26] MEDS: FENTANYL PF 100 MCG/2ML IVPush PRN (19:29)
[2019-07-27] MEDS: PROPOFOL 100 ML IV PRN ×2 (02:01→18:01)
[2019-07-27] MEDS: ALBUTEROL/IPRATROPIUM 2.5MG/0.5MG, 3 ML NPPB SCH ×6 (03:03→22:37)
[2019-07-27 04:54] LABS: ANION GAP 8 mmol/L (5-15); CALCIUM 8.3 mg/dL (8.5-10.1); CHLORIDE 100 mmol/L (98-107); CREATININE 3.48 mg/dL (0.7-1.3)
[2019-07-27 04:59] LABS: MEAN CORPUSCULAR HEMOGLOBIN 31.3 pg (27.5-34.5); MEAN CORPUSCULAR VOLUME 92.2 fL (81-97); MEAN PLATELET VOLUME 8.4 fL (7.4-10.4); PLATELET COUNT 373 x10^3/uL (130-400); RED CELL DISTRIBUTION WIDTH 15.7 % (9.4-14.8)
[2019-07-27] MEDS: INSULIN LISPRO 100 UNITS/ML, PEN SQ-INSULIN SCH ×4 (05:00→23:00)
[2019-07-27 05:06] LABS: TRIGLYCERIDES 634 mg/dL (50-200)
[2019-07-27 05:41] LABS: BASOPHILS # (AUTO) 0.08 x10^3/uL (0-0.1); BASOPHILS % (AUTO) 1 % (0-1); EOSINOPHILS % (AUTO) 4 % (1-7); LYMPHOCYTES % (AUTO) 32 % (22-44); MD SCAN; MONOCYTES # (AUTO) 0.46 x10^3/uL (0.2-0.8); MONOCYTES % (AUTO) 9 % (2-9); NEUTROPHILS # (AUTO) 2.85 x10^3/uL (1.8-6.8); NEUTROPHILS % (AUTO) 54 % (42-75)
[2019-07-27] MEDS: VANCOMYCIN 50 MG/ML ORAL SUSP PO SCH ×4 (05:53→23:29)
[2019-07-27] MEDS ORDERED: NOREPINEPHRINE 8 MG in SODIUM CHLORIDE 0.9% 242 ML IV PRN (06:00)
[2019-07-27] MEDS ORDERED: VASOPRESSIN 20 UNIT in SODIUM CHLORIDE 0.9% 99 ML IV PRN (06:00)
[2019-07-27] MEDS: AMIODARONE 200 MG TABLET PO SCH ×2 (08:03→20:56)
[2019-07-27] MEDS: SODIUM CHLORIDE FLUSH 10ML SYR IVF SCH ×2 (08:03→20:56)
[2019-07-27] MEDS: PANTOPRAZOLE 40 MG IV IVPush SCH (08:03)
[2019-07-27] MEDS: FENTANYL PF 100 MCG/2ML IVPush PRN ×4 (08:35→17:59)
--- NOTE | 2019-07-27 10:49 | NUR ---
07/27-TF Goal: w/ propofol: Osmolite 1.2 @ 65ml/hr; without propofol: 75ml/hr
[2019-07-27] MEDS: HEPARIN 5,000 UNITS/ML, 1ML SQ SCH ×2 (10:56→18:42)
[2019-07-27] MEDS: D5%-0.45NACL+KCL 20MEQ 1,000 ML IV SCH (18:00)
[2019-07-28] MEDS: ALBUTEROL/IPRATROPIUM 2.5MG/0.5MG, 3 ML NPPB SCH ×6 (02:35→22:41)
[2019-07-28] MEDS: HEPARIN 5,000 UNITS/ML, 1ML SQ SCH ×3 (03:07→20:43)
[2019-07-28] MEDS: PROPOFOL 100 ML IV PRN (03:07)
[2019-07-28] MEDS: INSULIN LISPRO 100 UNITS/ML, PEN SQ-INSULIN SCH ×4 (05:00→23:00)
[2019-07-28] MEDS: VANCOMYCIN 50 MG/ML ORAL SUSP PO SCH ×3 (05:08→18:30)
[2019-07-28 05:43] LABS: MEAN CORPUSCULAR HEMOGLOBIN 30.5 pg (27.5-34.5); MEAN CORPUSCULAR HGB CONC 32.8 g/dL (33.2-36.2); MEAN PLATELET VOLUME 7.8 fL (7.4-10.4); PLATELET COUNT 359 x10^3/uL (130-400); RED BLOOD COUNT 2.37 x10^6/uL (4.38-5.82); RED CELL DISTRIBUTION WIDTH 15.4 % (9.4-14.8)
[2019-07-28 05:49] LABS: ANION GAP 5 mmol/L (5-15); CALCIUM 8.5 mg/dL (8.5-10.1); CHLORIDE 102 mmol/L (98-107)
[2019-07-28 05:50] LABS: INTERNATIONAL NORMALIZED RATIO 1.07 (0.93-1.1); PROTHROMBIN TIME 11.3 Seconds (9.6-11.5)
[2019-07-28 05:51] LABS: CREATININE 2.24 mg/dL (0.7-1.3)
[2019-07-28 06:03] LABS: MD YES
[2019-07-28 06:06] LABS: ANISOCYTOSIS 1+; BAND#(MANUAL) 0.11 x10^3/uL; BANDS%(MANUAL) 2 % (0-7); EOS#(MANUAL) 0.11 x10^3/uL (0.0-0.4); EOS% (MANUAL) 2 % (1-7); LYMPH#(MANUAL) 2.54 x10^3/uL (1-3.4); LYMPHS% (MANUAL) 48 % (22-44); MONOS#(MANUAL) 0.21 x10^3/uL (0.3-2.7); MONOS% (MANUAL) 4 % (2-9); SEG#(MANUAL) 2.33 x10^3/uL (1.8-6.8); SEGS% (MANUAL) 44 % (42-75)
[2019-07-28 06:07] LABS: <PLATELET ESTIMATE> ADEQUATE; <PLT MORPHOLOGY> NORMAL PLT MORPH; POLYCHROMASIA 1+
[2019-07-28] MEDS: D5%-0.45NACL+KCL 20MEQ 1,000 ML IV SCH (06:40)
[2019-07-28] MEDS: AMIODARONE 200 MG TABLET PO SCH ×2 (08:45→20:44)
[2019-07-28] MEDS: PANTOPRAZOLE 40 MG IV IVPush SCH (08:45)
[2019-07-28] MEDS: SODIUM CHLORIDE FLUSH 10ML SYR IVF SCH ×2 (08:46→20:44)
[2019-07-28] MEDS ORDERED: FENTANYL PF 100 MCG/2ML IVPush ONE (09:00)
[2019-07-28] MEDS ORDERED: MIDAZOLAM 1 MG/ML, 2ML IVPush ONE (09:00)
[2019-07-28] MEDS ORDERED: VECURONIUM 10 MG IVPush ONE (09:00)
[2019-07-28] MEDS ORDERED: MIDAZOLAM 1 MG/ML, 2ML ONE (09:21)
[2019-07-28] MEDS ORDERED: VECURONIUM 10 MG ONE (09:22)
[2019-07-28] MEDS ORDERED: MIDAZOLAM 1 MG/ML, 5ML ONE (10:02)
[2019-07-28] MEDS: DEXTROSE 50%, 50ML SYRINGE IVPush PRN ×3 (11:36→23:43)
[2019-07-28] MEDS ORDERED: DEXMEDETOMIDINE 400 MCG in SODIUM CHLORIDE 0.9% 96 ML IV PRN (16:00)
[2019-07-28] MEDS: FENTANYL PF 100 MCG/2ML IVPush PRN (21:16)
[2019-07-29] MEDS: FENTANYL PF 100 MCG/2ML IVPush PRN ×5 (00:35→17:19)
[2019-07-29] MEDS: ALBUTEROL/IPRATROPIUM 2.5MG/0.5MG, 3 ML NPPB SCH ×6 (02:04→22:31)
[2019-07-29 04:45] LABS: BASOPHILS # (AUTO) 0.08 x10^3/uL (0-0.1); BASOPHILS % (AUTO) 2 % (0-1); EOSINOPHILS # (AUTO) 0.16 x10^3/uL (0-0.4); EOSINOPHILS % (AUTO) 4 % (1-7); LYMPHOCYTES # (AUTO) 1.83 x10^3/uL (1-3.4); LYMPHOCYTES % (AUTO) 41 % (22-44); MD NO; MEAN CORPUSCULAR HEMOGLOBIN 30.9 pg (27.5-34.5); MEAN CORPUSCULAR HGB CONC 33.3 g/dL (33.2-36.2); MEAN CORPUSCULAR VOLUME 92.8 fL (81-97); MEAN PLATELET VOLUME 7.5 fL (7.4-10.4); MONOCYTES # (AUTO) 0.47 x10^3/uL (0.2-0.8); MONOCYTES % (AUTO) 11 % (2-9); NEUTROPHILS # (AUTO) 1.93 x10^3/uL (1.8-6.8); NEUTROPHILS % (AUTO) 43 % (42-75); PLATELET COUNT 390 x10^3/uL (130-400); RED BLOOD COUNT 2.52 x10^6/uL (4.38-5.82); RED CELL DISTRIBUTION WIDTH 14.7 % (9.4-14.8)
[2019-07-29 05:00] LABS: ANION GAP 9 mmol/L (5-15); CHLORIDE 101 mmol/L (98-107)
[2019-07-29] MEDS: INSULIN LISPRO 100 UNITS/ML, PEN SQ-INSULIN SCH ×4 (05:00→23:00)
[2019-07-29] MEDS: HEPARIN 5,000 UNITS/ML, 1ML SQ SCH ×3 (05:00→21:12)
[2019-07-29 05:01] LABS: CREATININE 3.14 mg/dL (0.7-1.3)
[2019-07-29] MEDS: PANTOPRAZOLE 40 MG IV IVPush SCH (07:58)
[2019-07-29] MEDS: AMIODARONE 200 MG TABLET PO SCH ×2 (07:58→21:12)
[2019-07-29] MEDS: SODIUM CHLORIDE FLUSH 10ML SYR IVF SCH ×2 (07:59→21:12)
--- NOTE | 2019-07-29 15:15 | NUR ---
07/29 TF GOAL: NEPRO @ 75ML/HR X 16HR [id number] HOLD AT [facility]
[2019-07-30] MEDS: FENTANYL PF 100 MCG/2ML IVPush PRN (00:09)
[2019-07-30] MEDS: ALBUTEROL/IPRATROPIUM 2.5MG/0.5MG, 3 ML NPPB SCH ×6 (02:40→23:00)
[2019-07-30] MEDS: HEPARIN 5,000 UNITS/ML, 1ML SQ SCH ×3 (04:16→20:15)
[2019-07-30] MEDS: INSULIN LISPRO 100 UNITS/ML, PEN SQ-INSULIN SCH ×2 (04:41→10:35)
[2019-07-30 05:03] LABS: MEAN CORPUSCULAR HEMOGLOBIN 30.5 pg (27.5-34.5); MEAN CORPUSCULAR HGB CONC 32.9 g/dL (33.2-36.2); MEAN CORPUSCULAR VOLUME 92.8 fL (81-97); MEAN PLATELET VOLUME 7.4 fL (7.4-10.4); PLATELET COUNT 382 x10^3/uL (130-400)
[2019-07-30 05:06] LABS: % IRON SATURATION 21 % (20-55); ALBUMIN 2.7 g/dL (3.4-5.0); ANION GAP 7 mmol/L (5-15); CALCIUM 8.7 mg/dL (8.5-10.1); CHLORIDE 99 mmol/L (98-107); IRON LEVEL 37 mcg/dL (65-175); TOTAL IRON BINDING CAPACITY 174 mcg/dL (250-450); TRIGLYCERIDES 157 mg/dL (50-200)
[2019-07-30 05:44] LABS: BASOPHILS # (AUTO) 0.07 x10^3/uL (0-0.1); BASOPHILS % (AUTO) 1 % (0-1); EOSINOPHILS # (AUTO) 0.19 x10^3/uL (0-0.4); EOSINOPHILS % (AUTO) 3 % (1-7); LYMPHOCYTES # (AUTO) 1.81 x10^3/uL (1-3.4); LYMPHOCYTES % (AUTO) 30 % (22-44); MD SCAN; MONOCYTES # (AUTO) 0.65 x10^3/uL (0.2-0.8); MONOCYTES % (AUTO) 11 % (2-9); NEUTROPHILS # (AUTO) 3.37 x10^3/uL (1.8-6.8); NEUTROPHILS % (AUTO) 55 % (42-75)
[2019-07-30] MEDS: AMIODARONE 200 MG TABLET PO SCH ×2 (08:14→20:15)
[2019-07-30] MEDS: PANTOPRAZOLE 40 MG IV IVPush SCH (08:14)
[2019-07-30] MEDS: SODIUM CHLORIDE FLUSH 10ML SYR IVF SCH ×2 (08:14→20:15)
[2019-07-30] MEDS: ERGOCALCIFEROL 50,000 UNIT CAPSULE PO SCH (08:14)
[2019-07-30] MEDS ORDERED: ARANESP 100 MCG/ML **ESRD SQ SCH (09:24)
[2019-07-30] MEDS: ARANESP 200 MCG/ML **ESRD SQ SCH (10:31)
[2019-07-30] MEDS ORDERED: MICROFIBRILLAR COLLAGEN 1 GM TP ONE (12:30)
[2019-07-30] MEDS: HYDROcodone/APAP 5/325 TABLET PO PRN (20:39)
[2019-07-31] MEDS: HYDROcodone/APAP 5/325 TABLET PO PRN ×3 (01:08→21:21)
[2019-07-31] MEDS: ALBUTEROL/IPRATROPIUM 2.5MG/0.5MG, 3 ML NPPB SCH ×6 (03:00→23:00)
[2019-07-31] MEDS: HEPARIN 5,000 UNITS/ML, 1ML SQ SCH (04:07)
[2019-07-31 05:01] LABS: CHLORIDE 99 mmol/L (98-107)
[2019-07-31 05:06] LABS: ANION GAP 7 mmol/L (5-15); CALCIUM 9.6 mg/dL (8.5-10.1); CREATININE 3.19 mg/dL (0.7-1.3)
[2019-07-31 05:17] LABS: MEAN CORPUSCULAR HEMOGLOBIN 31.3 pg (27.5-34.5); MEAN CORPUSCULAR HGB CONC 33.9 g/dL (33.2-36.2); MEAN CORPUSCULAR VOLUME 92.3 fL (81-97); MEAN PLATELET VOLUME 7.1 fL (7.4-10.4); PLATELET COUNT 363 x10^3/uL (130-400); RED BLOOD COUNT 2.63 x10^6/uL (4.38-5.82); RED CELL DISTRIBUTION WIDTH 15.2 % (9.4-14.8)
[2019-07-31 05:33] LABS: MD YES
[2019-07-31 05:36] LABS: <PLATELET ESTIMATE> ADEQUATE; <PLT MORPHOLOGY> NORMAL PLT MORPH; BAND#(MANUAL) 0.13 x10^3/uL; BANDS%(MANUAL) 2 % (0-7); BASOS#(MANUAL) 0.13 x10^3/uL (0-0.1); BASOS% (MANUAL) 2 % (0-1); LYMPH#(MANUAL) 1.81 x10^3/uL (1-3.4); LYMPHS% (MANUAL) 27 % (22-44); MONOS#(MANUAL) 0.74 x10^3/uL (0.3-2.7); MONOS% (MANUAL) 11 % (2-9); SEG#(MANUAL) 3.89 x10^3/uL (1.8-6.8); SEGS% (MANUAL) 58 % (42-75)
[2019-07-31 05:37] LABS: ANISOCYTOSIS 1+; POLYCHROMASIA 1+
[2019-07-31] MEDS: PANTOPRAZOLE 40 MG IV IVPush SCH (08:04)
[2019-07-31] MEDS: SODIUM CHLORIDE FLUSH 10ML SYR IVF SCH ×2 (08:05→20:20)
[2019-07-31] MEDS: AMIODARONE 200 MG TABLET PO SCH ×2 (08:05→20:20)
[2019-07-31] MEDS ORDERED: CHOLESTYRAMINE LIGHT 4GM PACKET PO SCH (09:00)
[2019-07-31] MEDS: CHOLESTYRAMINE LIGHT 4GM PACKET PO SCH (15:23)
[2019-08-01] MEDS: ALBUTEROL/IPRATROPIUM 2.5MG/0.5MG, 3 ML NPPB SCH ×6 (03:00→22:28)
[2019-08-01 04:45] LABS: BASOPHILS # (AUTO) 0.07 x10^3/uL (0-0.1); BASOPHILS % (AUTO) 1 % (0-1); EOSINOPHILS # (AUTO) 0.28 x10^3/uL (0-0.4); EOSINOPHILS % (AUTO) 4 % (1-7); LYMPHOCYTES # (AUTO) 2.01 x10^3/uL (1-3.4); LYMPHOCYTES % (AUTO) 32 % (22-44); MD NO; MEAN CORPUSCULAR HEMOGLOBIN 30.4 pg (27.5-34.5); MEAN CORPUSCULAR HGB CONC 33.2 g/dL (33.2-36.2); MEAN CORPUSCULAR VOLUME 91.6 fL (81-97); MEAN PLATELET VOLUME 7.4 fL (7.4-10.4); MONOCYTES # (AUTO) 0.74 x10^3/uL (0.2-0.8); MONOCYTES % (AUTO) 12 % (2-9); NEUTROPHILS # (AUTO) 3.21 x10^3/uL (1.8-6.8); NEUTROPHILS % (AUTO) 51 % (42-75); PLATELET COUNT 353 x10^3/uL (130-400); RED BLOOD COUNT 2.64 x10^6/uL (4.38-5.82); RED CELL DISTRIBUTION WIDTH 15.7 % (9.4-14.8)
[2019-08-01 04:50] LABS: ANION GAP 4 mmol/L (5-15); CALCIUM 9.5 mg/dL (8.5-10.1); CHLORIDE 101 mmol/L (98-107); CREATININE 2.23 mg/dL (0.7-1.3)
[2019-08-01 04:53] LABS: INTERNATIONAL NORMALIZED RATIO 1.06 (0.93-1.1); PROTHROMBIN TIME 11.2 Seconds (9.6-11.5)
[2019-08-01 05:10] LABS: PROTIME 11.2 Seconds (9.6-11.5)
[2019-08-01 05:23] LABS: D-DIMER (DIC) 8.08 ug/mlFEU (0.00-0.52)
[2019-08-01] MEDS: PANTOPRAZOLE 40 MG IV IVPush SCH (11:07)
[2019-08-01] MEDS: SODIUM CHLORIDE FLUSH 10ML SYR IVF SCH ×2 (11:08→20:04)
[2019-08-01] MEDS: CHOLESTYRAMINE LIGHT 4GM PACKET PO SCH (11:08)
[2019-08-01] MEDS: AMIODARONE 200 MG TABLET PO SCH ×2 (11:09→20:03)
[2019-08-01] MEDS: HYDROcodone/APAP 5/325 TABLET PO PRN ×2 (14:27→19:59)
[2019-08-02] MEDS: ALBUTEROL/IPRATROPIUM 2.5MG/0.5MG, 3 ML NPPB SCH ×6 (02:16→22:28)
[2019-08-02 03:22] LABS: BASOPHILS # (AUTO) 0.06 x10^3/uL (0-0.1); BASOPHILS % (AUTO) 1 % (0-1); EOSINOPHILS # (AUTO) 0.38 x10^3/uL (0-0.4); EOSINOPHILS % (AUTO) 5 % (1-7); LYMPHOCYTES # (AUTO) 1.97 x10^3/uL (1-3.4); LYMPHOCYTES % (AUTO) 27 % (22-44); MD NO; MEAN CORPUSCULAR HEMOGLOBIN 30.2 pg (27.5-34.5); MEAN CORPUSCULAR HGB CONC 32.7 g/dL (33.2-36.2); MEAN CORPUSCULAR VOLUME 92.3 fL (81-97); MEAN PLATELET VOLUME 6.9 fL (7.4-10.4); MONOCYTES # (AUTO) 0.76 x10^3/uL (0.2-0.8); MONOCYTES % (AUTO) 10 % (2-9); NEUTROPHILS % (AUTO) 57 % (42-75); PLATELET COUNT 349 x10^3/uL (130-400); RED CELL DISTRIBUTION WIDTH 15.1 % (9.4-14.8)
[2019-08-02 03:33] LABS: ANION GAP 8 mmol/L (5-15); CALCIUM 10.5 mg/dL (8.5-10.1); CHLORIDE 98 mmol/L (98-107); CREATININE 3.17 mg/dL (0.7-1.3); TRIGLYCERIDES 205 mg/dL (50-200)
[2019-08-02] MEDS: CHOLESTYRAMINE LIGHT 4GM PACKET PO SCH (08:07)
[2019-08-02] MEDS: SODIUM CHLORIDE FLUSH 10ML SYR IVF SCH ×2 (08:07→21:00)
[2019-08-02] MEDS: PANTOPRAZOLE 40 MG IV IVPush SCH (08:07)
[2019-08-02] MEDS: AMIODARONE 200 MG TABLET PO SCH ×2 (08:07→21:37)
[2019-08-02] MEDS: DIPHENOXYLATE/ATROPINE ORAL SOL PO PRN (08:37)
[2019-08-02] MEDS: CARVEDILOL 3.125 MG TABLET PO SCH ×2 (10:40→18:10)
[2019-08-02] MEDS: HYDROcodone/APAP 5/325 TABLET PO PRN ×2 (13:47→21:38)
[2019-08-03] MEDS: ALBUTEROL/IPRATROPIUM 2.5MG/0.5MG, 3 ML NPPB SCH ×6 (03:00→21:51)
[2019-08-03] MEDS: HYDROcodone/APAP 5/325 TABLET PO PRN (04:26)
[2019-08-03 04:52] LABS: BASOPHILS % (AUTO) 1 % (0-1); EOSINOPHILS % (AUTO) 7 % (1-7); LYMPHOCYTES # (AUTO) 2.27 x10^3/uL (1-3.4); LYMPHOCYTES % (AUTO) 31 % (22-44); MD NO; MEAN CORPUSCULAR HEMOGLOBIN 30.4 pg (27.5-34.5); MEAN CORPUSCULAR HGB CONC 32.7 g/dL (33.2-36.2); MEAN CORPUSCULAR VOLUME 92.8 fL (81-97); MEAN PLATELET VOLUME 7.3 fL (7.4-10.4); MONOCYTES # (AUTO) 0.82 x10^3/uL (0.2-0.8); MONOCYTES % (AUTO) 11 % (2-9); NEUTROPHILS # (AUTO) 3.67 x10^3/uL (1.8-6.8); NEUTROPHILS % (AUTO) 50 % (42-75); PLATELET COUNT 349 x10^3/uL (130-400); RED BLOOD COUNT 2.71 x10^6/uL (4.38-5.82); RED CELL DISTRIBUTION WIDTH 15.8 % (9.4-14.8)
[2019-08-03 04:59] LABS: ANION GAP 5 mmol/L (5-15); CALCIUM 11.5 mg/dL (8.5-10.1); CHLORIDE 98 mmol/L (98-107); CREATININE 4.04 mg/dL (0.7-1.3)
[2019-08-03] MEDS: CARVEDILOL 3.125 MG TABLET PO SCH ×2 (06:28→17:31)
[2019-08-03] MEDS: GUAIFENESIN 200 MG TABLET PO SCH ×2 (09:21→17:31)
[2019-08-03] MEDS: AMIODARONE 200 MG TABLET PO SCH ×2 (09:21→21:10)
[2019-08-03] MEDS: SODIUM CHLORIDE FLUSH 10ML SYR IVF SCH ×2 (09:21→21:10)
[2019-08-03] MEDS: CHOLESTYRAMINE LIGHT 4GM PACKET PO SCH (09:21)
[2019-08-03] MEDS: PANTOPRAZOLE 40 MG IV IVPush SCH (09:21)
[2019-08-03] MEDS: ARANESP 200 MCG/ML **ESRD SQ SCH (11:34)
[2019-08-03] MEDS: DIPHENOXYLATE/ATROPINE ORAL SOL PO PRN (21:10)
[2019-08-04] MEDS: GUAIFENESIN 200 MG TABLET PO SCH ×4 (00:18→18:05)
[2019-08-04] MEDS: HYDROcodone/APAP 5/325 TABLET PO PRN ×3 (02:16→21:14)
[2019-08-04] MEDS: ALBUTEROL/IPRATROPIUM 2.5MG/0.5MG, 3 ML NPPB SCH ×6 (02:36→22:40)
[2019-08-04 04:23] LABS: BASOPHILS # (AUTO) 0.22 x10^3/uL (0-0.1); BASOPHILS % (AUTO) 3 % (0-1); EOSINOPHILS # (AUTO) 0.59 x10^3/uL (0-0.4); EOSINOPHILS % (AUTO) 8 % (1-7); LYMPHOCYTES # (AUTO) 2.46 x10^3/uL (1-3.4); LYMPHOCYTES % (AUTO) 31 % (22-44); MD NO; MEAN CORPUSCULAR HEMOGLOBIN 30.6 pg (27.5-34.5); MEAN CORPUSCULAR VOLUME 92.8 fL (81-97); MEAN PLATELET VOLUME 7.5 fL (7.4-10.4); MONOCYTES # (AUTO) 0.73 x10^3/uL (0.2-0.8); MONOCYTES % (AUTO) 9 % (2-9); NEUTROPHILS # (AUTO) 3.89 x10^3/uL (1.8-6.8); NEUTROPHILS % (AUTO) 49 % (42-75); PLATELET COUNT 295 x10^3/uL (130-400); RED BLOOD COUNT 2.91 x10^6/uL (4.38-5.82); RED CELL DISTRIBUTION WIDTH 16.2 % (9.4-14.8)
[2019-08-04 04:33] LABS: ANION GAP 6 mmol/L (5-15); CHLORIDE 99 mmol/L (98-107); CREATININE 3.03 mg/dL (0.7-1.3)
[2019-08-04] MEDS: CARVEDILOL 3.125 MG TABLET PO SCH ×2 (06:00→18:06)
[2019-08-04] MEDS: DIPHENOXYLATE/ATROPINE ORAL SOL PO PRN (06:07)
[2019-08-04] MEDS: CHOLESTYRAMINE LIGHT 4GM PACKET PO SCH (08:24)
[2019-08-04] MEDS: PANTOPRAZOLE 40 MG IV IVPush SCH (08:25)
[2019-08-04] MEDS: SODIUM CHLORIDE FLUSH 10ML SYR IVF SCH ×2 (08:25→20:52)
[2019-08-04] MEDS: AMIODARONE 200 MG TABLET PO SCH ×2 (08:25→20:52)
[2019-08-05] MEDS: GUAIFENESIN 200 MG TABLET PO SCH ×4 (00:47→17:46)
[2019-08-05] MEDS: HYDROcodone/APAP 5/325 TABLET PO PRN (01:10)
[2019-08-05] MEDS: ALBUTEROL/IPRATROPIUM 2.5MG/0.5MG, 3 ML NPPB SCH ×6 (02:43→22:20)
[2019-08-05 04:49] LABS: BASOPHILS # (AUTO) 0.07 x10^3/uL (0-0.1); BASOPHILS % (AUTO) 1 % (0-1); EOSINOPHILS # (AUTO) 0.81 x10^3/uL (0-0.4); EOSINOPHILS % (AUTO) 9 % (1-7); LYMPHOCYTES # (AUTO) 2.62 x10^3/uL (1-3.4); LYMPHOCYTES % (AUTO) 28 % (22-44); MD NO; MEAN CORPUSCULAR HEMOGLOBIN 30.3 pg (27.5-34.5); MEAN CORPUSCULAR HGB CONC 32.8 g/dL (33.2-36.2); MEAN CORPUSCULAR VOLUME 92.3 fL (81-97); MEAN PLATELET VOLUME 7.7 fL (7.4-10.4); MONOCYTES # (AUTO) 0.84 x10^3/uL (0.2-0.8); MONOCYTES % (AUTO) 9 % (2-9); NEUTROPHILS # (AUTO) 4.97 x10^3/uL (1.8-6.8); NEUTROPHILS % (AUTO) 53 % (42-75); PLATELET COUNT 330 x10^3/uL (130-400); RED BLOOD COUNT 3.09 x10^6/uL (4.38-5.82); RED CELL DISTRIBUTION WIDTH 16.3 % (9.4-14.8)
[2019-08-05 04:56] LABS: ANION GAP 7 mmol/L (5-15); CALCIUM 11.2 mg/dL (8.5-10.1); CHLORIDE 98 mmol/L (98-107)
[2019-08-05 04:58] LABS: CREATININE 3.94 mg/dL (0.7-1.3); TRIGLYCERIDES 290 mg/dL (50-200)
[2019-08-05] MEDS: CARVEDILOL 3.125 MG TABLET PO SCH ×2 (06:09→17:43)
[2019-08-05] MEDS: PANTOPRAZOLE GRAN. PKT 40 MG PEG SCH (09:46)
[2019-08-05] MEDS: AMIODARONE 200 MG TABLET PO SCH ×2 (09:46→20:36)
[2019-08-05] MEDS: HEPARIN 5,000 UNITS/ML, 1ML SQ SCH ×2 (09:46→20:37)
[2019-08-05] MEDS: SODIUM CHLORIDE FLUSH 10ML SYR IVF SCH ×2 (09:50→20:36)
[2019-08-05] MEDS: CHOLESTYRAMINE LIGHT 4GM PACKET PO SCH (14:14)
[2019-08-05] MEDS: METOCLOPRAMIDE 5 MG/ML, 2ML IVPush SCH (17:42)
[2019-08-06] MEDS: GUAIFENESIN 200 MG TABLET PO SCH ×4 (00:01→18:02)
[2019-08-06] MEDS: HYDROcodone/APAP 5/325 TABLET PO PRN ×2 (00:01→16:24)
[2019-08-06] MEDS: METOCLOPRAMIDE 5 MG/ML, 2ML IVPush SCH ×4 (00:02→18:07)
[2019-08-06] MEDS: ALBUTEROL/IPRATROPIUM 2.5MG/0.5MG, 3 ML NPPB SCH ×6 (02:05→23:00)
[2019-08-06 04:25] VITALS: BP 110/53
[2019-08-06] MEDS: CARVEDILOL 3.125 MG TABLET PO SCH ×2 (05:23→18:02)
[2019-08-06] MEDS: ERGOCALCIFEROL 50,000 UNIT CAPSULE PO SCH (08:46)
[2019-08-06] MEDS: AMIODARONE 200 MG TABLET PO SCH ×2 (08:47→22:18)
[2019-08-06] MEDS: PANTOPRAZOLE GRAN. PKT 40 MG PEG SCH (08:47)
[2019-08-06] MEDS: CHOLESTYRAMINE LIGHT 4GM PACKET PO SCH (08:48)
[2019-08-06] MEDS: HEPARIN 5,000 UNITS/ML, 1ML SQ SCH ×2 (08:48→22:18)
[2019-08-06] MEDS: SODIUM CHLORIDE FLUSH 10ML SYR IVF SCH ×2 (08:49→22:18)
[2019-08-06] MEDS: ARANESP 200 MCG/ML **ESRD SQ SCH (12:14)
[2019-08-07] MEDS: METOCLOPRAMIDE 5 MG/ML, 2ML IVPush SCH ×5 (00:50→21:48)
[2019-08-07] MEDS: GUAIFENESIN 200 MG TABLET PO SCH ×2 (00:50→06:04)
[2019-08-07] MEDS: ALBUTEROL/IPRATROPIUM 2.5MG/0.5MG, 3 ML NPPB SCH ×6 (03:00→23:00)
[2019-08-07] MEDS: CARVEDILOL 3.125 MG TABLET PO SCH ×2 (06:04→19:00)
[2019-08-07 08:13] LABS: BASOPHILS # (AUTO) 0.08 x10^3/uL (0-0.1); BASOPHILS % (AUTO) 1 % (0-1); EOSINOPHILS # (AUTO) 0.78 x10^3/uL (0-0.4); EOSINOPHILS % (AUTO) 8 % (1-7); LYMPHOCYTES % (AUTO) 22 % (22-44); MD NO; MEAN CORPUSCULAR HGB CONC 32.2 g/dL (33.2-36.2); MEAN CORPUSCULAR VOLUME 93.3 fL (81-97); MEAN PLATELET VOLUME 7.3 fL (7.4-10.4); MONOCYTES # (AUTO) 0.91 x10^3/uL (0.2-0.8); MONOCYTES % (AUTO) 10 % (2-9); NEUTROPHILS # (AUTO) 5.61 x10^3/uL (1.8-6.8); NEUTROPHILS % (AUTO) 59 % (42-75); PLATELET COUNT 365 x10^3/uL (130-400); RED BLOOD COUNT 2.85 x10^6/uL (4.38-5.82); RED CELL DISTRIBUTION WIDTH 16.7 % (9.4-14.8)
[2019-08-07 08:21] LABS: ANION GAP 6 mmol/L (5-15); CALCIUM 10.2 mg/dL (8.5-10.1); CHLORIDE 102 mmol/L (98-107); CREATININE 3.52 mg/dL (0.7-1.3)
[2019-08-07] MEDS ORDERED: GUAIFENESIN 200 MG TABLET PO PRN (09:00)
[2019-08-07] MEDS: PANTOPRAZOLE GRAN. PKT 40 MG PEG SCH (09:05)
[2019-08-07] MEDS: AMIODARONE 200 MG TABLET PO SCH ×2 (09:05→20:52)
[2019-08-07] MEDS: HEPARIN 5,000 UNITS/ML, 1ML SQ SCH ×2 (09:06→20:52)
[2019-08-07] MEDS: CHOLESTYRAMINE LIGHT 4GM PACKET PO SCH (09:07)
[2019-08-07] MEDS: SODIUM CHLORIDE FLUSH 10ML SYR IVF SCH ×2 (09:07→20:39)
[2019-08-07] MEDS: DIPHENOXYLATE/ATROPINE ORAL SOL PO PRN ×2 (12:07→20:53)
[2019-08-07] MEDS: HYDROcodone/APAP 5/325 TABLET PO PRN (12:08)
[2019-08-08] MEDS: ALBUTEROL/IPRATROPIUM 2.5MG/0.5MG, 3 ML NPPB SCH ×6 (03:00→22:34)
[2019-08-08] MEDS: METOCLOPRAMIDE 5 MG/ML, 2ML IVPush SCH (04:26)
[2019-08-08] MEDS: CARVEDILOL 3.125 MG TABLET PO SCH ×2 (05:27→17:56)
[2019-08-08] MEDS: DIPHENOXYLATE/ATROPINE ORAL SOL PO PRN (05:27)
[2019-08-08] MEDS: CHOLESTYRAMINE LIGHT 4GM PACKET PO SCH (07:55)
[2019-08-08] MEDS: AMIODARONE 200 MG TABLET PO SCH ×2 (07:55→21:04)
[2019-08-08] MEDS: PANTOPRAZOLE GRAN. PKT 40 MG PEG SCH (07:55)
[2019-08-08] MEDS: HEPARIN 5,000 UNITS/ML, 1ML SQ SCH ×2 (07:56→21:05)
[2019-08-08] MEDS: SODIUM CHLORIDE FLUSH 10ML SYR IVF SCH ×2 (07:56→21:03)
[2019-08-08] MEDS: HYDROcodone/APAP 5/325 TABLET PO PRN (16:22)
[2019-08-09] MEDS: ALBUTEROL/IPRATROPIUM 2.5MG/0.5MG, 3 ML NPPB SCH ×6 (02:28→23:00)
[2019-08-09 04:40] LABS: BASOPHILS # (AUTO) 0.07 x10^3/uL (0-0.1); BASOPHILS % (AUTO) 1 % (0-1); EOSINOPHILS # (AUTO) 0.76 x10^3/uL (0-0.4); EOSINOPHILS % (AUTO) 9 % (1-7); LYMPHOCYTES # (AUTO) 2.46 x10^3/uL (1-3.4); LYMPHOCYTES % (AUTO) 28 % (22-44); MD NO; MEAN CORPUSCULAR HEMOGLOBIN 29.8 pg (27.5-34.5); MEAN CORPUSCULAR HGB CONC 32.4 g/dL (33.2-36.2); MEAN PLATELET VOLUME 7.5 fL (7.4-10.4); MONOCYTES # (AUTO) 0.85 x10^3/uL (0.2-0.8); MONOCYTES % (AUTO) 10 % (2-9); NEUTROPHILS # (AUTO) 4.61 x10^3/uL (1.8-6.8); NEUTROPHILS % (AUTO) 53 % (42-75); PLATELET COUNT 365 x10^3/uL (130-400); RED BLOOD COUNT 3.07 x10^6/uL (4.38-5.82); RED CELL DISTRIBUTION WIDTH 17.4 % (9.4-14.8)
[2019-08-09 04:51] LABS: ANION GAP 10 mmol/L (5-15); CALCIUM 10.7 mg/dL (8.5-10.1); CHLORIDE 97 mmol/L (98-107)
[2019-08-09 04:52] LABS: CREATININE 3.94 mg/dL (0.7-1.3)
[2019-08-09] MEDS: CARVEDILOL 3.125 MG TABLET PO SCH ×2 (06:35→18:01)
[2019-08-09] MEDS: ASPIRIN 325 MG TABLET PO SCH (06:36)
[2019-08-09] MEDS: HEPARIN 5,000 UNITS/ML, 1ML SQ SCH ×2 (09:24→20:08)
[2019-08-09] MEDS: SODIUM CHLORIDE FLUSH 10ML SYR IVF SCH ×2 (09:44→20:08)
[2019-08-09] MEDS: CHOLESTYRAMINE LIGHT 4GM PACKET PO SCH (09:44)
[2019-08-09] MEDS: PANTOPRAZOLE GRAN. PKT 40 MG PEG SCH (09:44)
[2019-08-09] MEDS: AMIODARONE 200 MG TABLET PO SCH ×2 (09:48→20:08)
[2019-08-09 19:56] VITALS: BP 148/73
[2019-08-10 01:56] VITALS: BP 165/71
[2019-08-10] MEDS: ALBUTEROL/IPRATROPIUM 2.5MG/0.5MG, 3 ML NPPB SCH ×6 (03:00→23:15)
[2019-08-10 06:08] LABS: BASOPHILS # (AUTO) 0.09 x10^3/uL (0-0.1); BASOPHILS % (AUTO) 1 % (0-1); EOSINOPHILS # (AUTO) 0.93 x10^3/uL (0-0.4); EOSINOPHILS % (AUTO) 9 % (1-7); LYMPHOCYTES # (AUTO) 2.48 x10^3/uL (1-3.4); LYMPHOCYTES % (AUTO) 23 % (22-44); MD NO; MEAN CORPUSCULAR HEMOGLOBIN 30.1 pg (27.5-34.5); MEAN CORPUSCULAR HGB CONC 32.4 g/dL (33.2-36.2); MEAN CORPUSCULAR VOLUME 92.8 fL (81-97); MEAN PLATELET VOLUME 7.4 fL (7.4-10.4); MONOCYTES # (AUTO) 0.74 x10^3/uL (0.2-0.8); MONOCYTES % (AUTO) 7 % (2-9); NEUTROPHILS % (AUTO) 61 % (42-75); PLATELET COUNT 419 x10^3/uL (130-400); RED BLOOD COUNT 3.33 x10^6/uL (4.38-5.82); RED CELL DISTRIBUTION WIDTH 17.7 % (9.4-14.8)
[2019-08-10 06:18] LABS: ANION GAP 11 mmol/L (5-15); CALCIUM 10.9 mg/dL (8.5-10.1); CHLORIDE 97 mmol/L (98-107); CREATININE 4.62 mg/dL (0.7-1.3)
[2019-08-10] MEDS: ASPIRIN 325 MG TABLET PO SCH (06:34)
[2019-08-10] MEDS: CARVEDILOL 3.125 MG TABLET PO SCH ×2 (06:35→17:34)
[2019-08-10 07:51] VITALS: BP 161/70
[2019-08-10] MEDS: LACTOBACILLUS CHEW TABLET PO SCH ×3 (09:00→21:46)
[2019-08-10] MEDS: HYDROcodone/APAP 5/325 TABLET PO PRN (11:05)
[2019-08-10] MEDS: HEPARIN 5,000 UNITS/ML, 1ML SQ SCH ×2 (11:06→21:46)
[2019-08-10] MEDS: SODIUM CHLORIDE FLUSH 10ML SYR IVF SCH ×2 (11:06→21:48)
[2019-08-10] MEDS: CHOLESTYRAMINE LIGHT 4GM PACKET PO SCH (14:04)
[2019-08-10] MEDS: PANTOPRAZOLE GRAN. PKT 40 MG PEG SCH (14:05)
[2019-08-10] MEDS: AMIODARONE 200 MG TABLET PO SCH (14:05)
[2019-08-10] MEDS: RISPERIDONE 0.5 MG TABLET PO SCH ×2 (17:34→21:48)
[2019-08-10 17:36] VITALS: BP 125/63
[2019-08-10 20:08] VITALS: BP 118/64
[2019-08-11 00:01] VITALS: BP 126/62
[2019-08-11] MEDS: HYDROcodone/APAP 5/325 TABLET PO PRN (01:33)
[2019-08-11] MEDS: ALBUTEROL/IPRATROPIUM 2.5MG/0.5MG, 3 ML NPPB SCH ×6 (03:30→23:20)
[2019-08-11 05:40] VITALS: BP 131/62
[2019-08-11] MEDS: CARVEDILOL 3.125 MG TABLET PO SCH ×2 (05:43→17:21)
[2019-08-11] MEDS: ASPIRIN 325 MG TABLET PO SCH (05:44)
[2019-08-11 07:30] VITALS: BP 126/63
[2019-08-11] MEDS ORDERED: ACETAMINOPHEN 325 MG TABLET PO PRN (08:00)
[2019-08-11] MEDS: SODIUM CHLORIDE FLUSH 10ML SYR IVF SCH ×2 (09:20→21:34)
[2019-08-11] MEDS: LACTOBACILLUS CHEW TABLET PO SCH ×3 (09:20→21:35)
[2019-08-11] MEDS: PANTOPRAZOLE GRAN. PKT 40 MG PEG SCH (09:20)
[2019-08-11] MEDS: HEPARIN 5,000 UNITS/ML, 1ML SQ SCH ×2 (09:20→21:35)
[2019-08-11] MEDS: AMIODARONE 200 MG TABLET PO SCH (09:20)
[2019-08-11] MEDS: CHOLESTYRAMINE LIGHT 4GM PACKET PO SCH (09:20)
[2019-08-11] MEDS ORDERED: TESTOSTERONE CYPIONATE 200 MG/ML IM ONE (12:30)
[2019-08-11 12:49] VITALS: BP 133/64
[2019-08-11 17:18] VITALS: BP 134/65
[2019-08-11 18:48] VITALS: BP 156/75
[2019-08-11] MEDS: RISPERIDONE 0.5 MG TABLET PO SCH (21:35)
[2019-08-12] VITALS (7 sets, daily range): BP systolic 112–149; BP diastolic 62–69
[2019-08-12] MEDS: ALBUTEROL/IPRATROPIUM 2.5MG/0.5MG, 3 ML NPPB SCH ×6 (03:15→23:14)
[2019-08-12] MEDS: ASPIRIN 325 MG TABLET PO SCH (05:38)
[2019-08-12] MEDS: CARVEDILOL 3.125 MG TABLET PO SCH ×2 (05:39→21:55)
[2019-08-12] MEDS: PANTOPRAZOLE GRAN. PKT 40 MG PEG SCH (08:37)
[2019-08-12] MEDS: SODIUM CHLORIDE FLUSH 10ML SYR IVF SCH ×2 (08:39→21:54)
[2019-08-12] MEDS: AMIODARONE 200 MG TABLET PO SCH (08:40)
[2019-08-12] MEDS: LACTOBACILLUS CHEW TABLET PO SCH ×3 (08:40→21:54)
[2019-08-12] MEDS: CHOLESTYRAMINE LIGHT 4GM PACKET PO SCH (08:41)
[2019-08-12] MEDS: HEPARIN 5,000 UNITS/ML, 1ML SQ SCH ×2 (08:42→21:54)
[2019-08-12] MEDS: RISPERIDONE 0.5 MG TABLET PO SCH (21:54)
[2019-08-13 01:21] VITALS: BP 138/65
[2019-08-13] MEDS: ALBUTEROL/IPRATROPIUM 2.5MG/0.5MG, 3 ML NPPB SCH ×6 (01:34→19:56)
[2019-08-13 05:27] VITALS: BP 136/67
[2019-08-13] MEDS: CARVEDILOL 3.125 MG TABLET PO SCH ×2 (05:29→18:01)
[2019-08-13] MEDS: ASPIRIN 325 MG TABLET PO SCH (05:29)
[2019-08-13 07:51] VITALS: BP 131/66
[2019-08-13] MEDS: CHOLESTYRAMINE LIGHT 4GM PACKET PO SCH (10:00)
[2019-08-13] MEDS: PANTOPRAZOLE GRAN. PKT 40 MG PEG SCH (10:00)
[2019-08-13] MEDS: ERGOCALCIFEROL 50,000 UNIT CAPSULE PO SCH (10:00)
[2019-08-13] MEDS: LACTOBACILLUS CHEW TABLET PO SCH ×3 (10:00→21:59)
[2019-08-13] MEDS: AMIODARONE 200 MG TABLET PO SCH (10:00)
[2019-08-13] MEDS: HEPARIN 5,000 UNITS/ML, 1ML SQ SCH ×2 (10:01→21:59)
[2019-08-13] MEDS: SODIUM CHLORIDE FLUSH 10ML SYR IVF SCH ×2 (10:14→21:00)
[2019-08-13 12:20] VITALS: BP 141/66
[2019-08-13] MEDS: ARANESP 200 MCG/ML **ESRD SQ SCH (12:58)
[2019-08-13 21:03] VITALS: BP 161/73
[2019-08-13] MEDS: RISPERIDONE 0.5 MG TABLET PO SCH (21:59)
[2019-08-14 01:35] VITALS: BP 152/74
[2019-08-14] MEDS: ASPIRIN 325 MG TABLET PO SCH (06:14)
[2019-08-14] MEDS: CARVEDILOL 3.125 MG TABLET PO SCH (06:14)
[2019-08-14] MEDS: ALBUTEROL/IPRATROPIUM 2.5MG/0.5MG, 3 ML NPPB SCH ×3 (07:00→14:24)
[2019-08-14] MEDS ORDERED: PANTOPRAZOLE GRAN. PKT 40 MG PEG SCH (08:30)
[2019-08-14 08:51] VITALS: BP 110/66
[2019-08-14 09:50] LABS: ANION GAP 6 mmol/L (5-15); CALCIUM 8.4 mg/dL (8.5-10.1); CHLORIDE 99 mmol/L (98-107)
[2019-08-14] MEDS: LACTOBACILLUS CHEW TABLET PO SCH (11:50)
[2019-08-14] MEDS: CHOLESTYRAMINE LIGHT 4GM PACKET PO SCH (11:50)
[2019-08-14] MEDS: HEPARIN 5,000 UNITS/ML, 1ML SQ SCH (11:50)
[2019-08-14] MEDS: AMIODARONE 200 MG TABLET PO SCH (11:57)
[2019-08-14] MEDS: SODIUM CHLORIDE FLUSH 10ML SYR IVF SCH (12:00)
[2019-08-14] MEDS ORDERED: RISP0.5T24 PO (12:31)
[2019-08-14] MEDS ORDERED: CHOL239. PO (12:31)
[2019-08-14] MEDS ORDERED: AMIO200T42 PO (12:31)
[2019-08-14] MEDS ORDERED: CARV3.1212 PO (12:31)
[2019-08-14 12:36] VITALS: BP 143/70
== END 2019-08-14 15:42 | DRG 4 ==
LOC: ED 16:39 → EDIP 18:07 → 3N 18:47 → 4EST 21:00 → CCU 07-12 12:28 → ICU 08-04 08:00 → CCU 08-08 14:04 → 4EST 08-09 16:20
PROVIDERS: ADMIT Family Medicine; ATTEND Internal Medicine
PROC: 5A1955Z Respiratory Ventilation, Greater than 96 Consecutive Hours (ICD-10-PCS; principal; 2019-07-12)
PROC: 0BH18EZ Insertion of Endotracheal Airway into Trachea, Via Natural or Artificial Opening Endoscopic (ICD-10-PCS; 2019-07-12)
PROC: 30233M1 Transfusion of Nonautologous Plasma Cryoprecipitate into Peripheral Vein, Percutaneous Approach (ICD-10-PCS; 2019-07-12)
PROC: 30233R1 Transfusion of Nonautologous Platelets into Peripheral Vein, Percutaneous Approach (ICD-10-PCS; 2019-07-12)
PROC: 02HV33Z Insertion of Infusion Device into Superior Vena Cava, Percutaneous Approach (ICD-10-PCS; 2019-07-12)
PROC: B548ZZA Ultrasonography of Superior Vena Cava, Guidance (ICD-10-PCS; 2019-07-12)
PROC: 5A1D70Z Performance of Urinary Filtration, Intermittent, Less than 6 Hours Per Day (ICD-10-PCS; 2019-07-13)
PROC: 5A1D70Z Performance of Urinary Filtration, Intermittent, Less than 6 Hours Per Day (ICD-10-PCS; 2019-07-15)
PROC: 5A1D70Z Performance of Urinary Filtration, Intermittent, Less than 6 Hours Per Day (ICD-10-PCS; 2019-07-16)
PROC: 0BCB8ZZ Extirpation of Matter from Left Lower Lobe Bronchus, Via Natural or Artificial Opening Endoscopic (ICD-10-PCS; 2019-07-17)
PROC: 5A1D70Z Performance of Urinary Filtration, Intermittent, Less than 6 Hours Per Day (ICD-10-PCS; 2019-07-18)
PROC: 02HV33Z Insertion of Infusion Device into Superior Vena Cava, Percutaneous Approach (ICD-10-PCS; 2019-07-18)
PROC: B548ZZA Ultrasonography of Superior Vena Cava, Guidance (ICD-10-PCS; 2019-07-18)
PROC: 5A1D70Z Performance of Urinary Filtration, Intermittent, Less than 6 Hours Per Day (ICD-10-PCS; 2019-07-19)
PROC: 5A1D70Z Performance of Urinary Filtration, Intermittent, Less than 6 Hours Per Day (ICD-10-PCS; 2019-07-20)
PROC: 5A1D70Z Performance of Urinary Filtration, Intermittent, Less than 6 Hours Per Day (ICD-10-PCS; 2019-07-22)
PROC: 30233N1 Transfusion of Nonautologous Red Blood Cells into Peripheral Vein, Percutaneous Approach (ICD-10-PCS; 2019-07-23)
PROC: 0JH63XZ Insertion of Tunneled Vascular Access Device into Chest Subcutaneous Tissue and Fascia, Percutaneous Approach (ICD-10-PCS; 2019-07-24)
PROC: 02H633Z Insertion of Infusion Device into Right Atrium, Percutaneous Approach (ICD-10-PCS; 2019-07-24)
PROC: B5181ZA Fluoroscopy of Superior Vena Cava using Low Osmolar Contrast, Guidance (ICD-10-PCS; 2019-07-24)
PROC: 5A1D70Z Performance of Urinary Filtration, Intermittent, Less than 6 Hours Per Day (ICD-10-PCS; 2019-07-25)
PROC: 5A1D70Z Performance of Urinary Filtration, Intermittent, Less than 6 Hours Per Day (ICD-10-PCS; 2019-07-27)
PROC: 0B113F4 Bypass Trachea to Cutaneous with Tracheostomy Device, Percutaneous Approach (ICD-10-PCS; 2019-07-28)
PROC: 5A1D70Z Performance of Urinary Filtration, Intermittent, Less than 6 Hours Per Day (ICD-10-PCS; 2019-07-28)
PROC: 5A1D70Z Performance of Urinary Filtration, Intermittent, Less than 6 Hours Per Day (ICD-10-PCS; 2019-07-29)
PROC: 5A1D70Z Performance of Urinary Filtration, Intermittent, Less than 6 Hours Per Day (ICD-10-PCS; 2019-07-31)
PROC: 5A1D70Z Performance of Urinary Filtration, Intermittent, Less than 6 Hours Per Day (ICD-10-PCS; 2019-08-03)
PROC: 5A1D70Z Performance of Urinary Filtration, Intermittent, Less than 6 Hours Per Day (ICD-10-PCS; 2019-08-05)
PROC: 5A1D70Z Performance of Urinary Filtration, Intermittent, Less than 6 Hours Per Day (ICD-10-PCS; 2019-08-07)
PROC: 5A1D70Z Performance of Urinary Filtration, Intermittent, Less than 6 Hours Per Day (ICD-10-PCS; 2019-08-10)
PROC: 5A1D70Z Performance of Urinary Filtration, Intermittent, Less than 6 Hours Per Day (ICD-10-PCS; 2019-08-12)
PROC: 5A1D70Z Performance of Urinary Filtration, Intermittent, Less than 6 Hours Per Day (ICD-10-PCS; 2019-08-14)
DX: A41.51 Sepsis due to Escherichia coli [E. coli] (principal); R65.21 Severe sepsis with septic shock; N18.6 End stage renal disease; I21.4 Non-ST elevation (NSTEMI) myocardial infarction; G93.41 Metabolic encephalopathy; J18.9 Pneumonia, unspecified organism; J96.21 Acute and chronic respiratory failure with hypoxia; E87.2 Acidosis; A04.72 Enterocolitis due to Clostridium difficile, not specified as recurrent; D61.818 Other pancytopenia; D68.69 Other thrombophilia; E46 Unspecified protein-calorie malnutrition; E87.1 Hypo-osmolality and hyponatremia; F33.9 Major depressive disorder, recurrent, unspecified; I12.0 Hypertensive chronic kidney disease with stage 5 chronic kidney disease or end stage renal disease; J44.0 Chronic obstructive pulmonary disease with (acute) lower respiratory infection; M86.8X6 Other osteomyelitis, lower leg; Z99.11 Dependence on respirator [ventilator] status; Z68.1 Body mass index [BMI] 19.9 or less, adult; E83.52 Hypercalcemia; R32 Unspecified urinary incontinence; Z99.2 Dependence on renal dialysis; I48.91 Unspecified atrial fibrillation; B96.89 Other specified bacterial agents as the cause of diseases classified elsewhere; B96.20 Unspecified Escherichia coli [E. coli] as the cause of diseases classified elsewhere; D63.1 Anemia in chronic kidney disease; D69.59 Other secondary thrombocytopenia; E16.2 Hypoglycemia, unspecified; E87.6 Hypokalemia; F41.9 Anxiety disorder, unspecified; I73.9 Peripheral vascular disease, unspecified; L89.159 Pressure ulcer of sacral region, unspecified stage; R62.7 Adult failure to thrive; Z51.5 Encounter for palliative care; Z93.0 Tracheostomy status; Z93.1 Gastrostomy status; Z59.0 Homelessness; Z79.899 Other long term (current) drug therapy
CPT/HCPCS: 31622; 36415; 36556; 36558; 36573; 36589; 36600; 70450; 71045; 74176; 77001; 80048; 80053; 80069; 80076; 80202; 81001; 82306; 82533; 82728; 82803; 82962; 83540; 83550; 83605; 83735; 83970; 84100; 84132; 84402; 84403; 84443; 84478; 84484; 85014; 85018; 85025; 85049; 85379; 85384; 85610; 85730; 86705; 86706; 86850; 86900; 86923; 87015; 87040; 87070; 87075; 87077; 87081; 87086; 87102; 87116; 87186; 87205; 87206; 87324; 87340; 89055; 90935; 93005; 93306; 94002; 94003; 94150; 94640; 96360; 99156; 99157; G0378; J0610; J0696; J0744; J0882; J1071; J1644; J2185; J2248; J2250; J2405; J2543; J2704; J3010; J3370; J3430; J3480; J7070; J7620; P9047; C1751; C9113; J0282; J0360; J1642; J1720; J1815; J2310; J2765; J3475; J7030; J7040; J7050; J7060; P9012; P9016; P9017; P9035

== ENCOUNTER 2020-06-08 14:10 | Day surgery (SDC) | payer MEDICARE ==
[~2020-06-08] VITALS: Ht 175.3 cm; Wt 58.6 kg
[~2020-06-08 14:10] MED LIST changes: +AMIO200T42 PO; +CARV3.1212 PO; +CHOL239. PO; +DEXA4TAB66 GT; +FAMO-79 GT; +LABE100T6 GT; +LORA2TAB99 PO; +OXYC5TAB3 GT; +QUET100T4 GT; +RISP0.5T24 PO; +SERT50TA GT; +SEVE800T8 PO
[2020-06-08] MEDS ORDERED: SODIUM CHLORIDE 0.9% 1,000 ML IV SCH (15:00)
[2020-06-08] MEDS ORDERED: LACTATED RINGERS 1,000 ML IV SCH (15:00)
[2020-06-08] MEDS ORDERED: CHLORHEXIDINE 15 ML UDC MM ONE (15:00)
[2020-06-08] MEDS ORDERED: LISI-170 PO (15:03)
[2020-06-08] MEDS ORDERED: CYCL-259 PO (15:03)
[2020-06-08] MEDS ORDERED: GABA-826 PO (15:03)
[2020-06-08] MEDS ORDERED: LOPE1LIQ6 PO (15:03)
[2020-06-08] MEDS ORDERED: ACET325C6 PO (15:24)
[2020-06-08] MEDS ORDERED: TRAZADONE PO (15:26)
[2020-06-08 15:28] VITALS: BP 148/67
[2020-06-08 15:31] LABS: MEAN CORPUSCULAR HEMOGLOBIN 32.8 pg (27.5-34.5); MEAN PLATELET VOLUME 8.3 fL (7.4-10.4)
[2020-06-08 15:33] LABS: BASOPHILS % (AUTO) 1 % (0-1); EOSINOPHILS % (AUTO) 13 % (1-7); LYMPHOCYTES % (AUTO) 14 % (22-44); MEAN CORPUSCULAR HGB CONC 33.8 g/dL (33.2-36.2); MONOCYTES % (AUTO) 9 % (2-9); NEUTROPHILS % (AUTO) 64 % (42-75); PLATELET COUNT 148 x10^3/uL (130-400); RED BLOOD COUNT 3.89 x10^6/uL (4.38-5.82); RED CELL DISTRIBUTION WIDTH 16.6 % (9.4-14.8)
[2020-06-08 15:37] LABS: ANION GAP 5 mmol/L (5-15); CALCIUM 9.3 mg/dL (8.5-10.1); CHLORIDE 101 mmol/L (98-107)
[2020-06-08 15:38] LABS: CREATININE 1.47 mg/dL (0.7-1.3)
[2020-06-08] MEDS ORDERED: LIDOCAINE/PF 1%, 30ML ONE (16:00)
[2020-06-08] MEDS ORDERED: PROTAMINE SULFATE 10 MG/ML, 5ML ONE (16:00)
[2020-06-08] MEDS ORDERED: THROMBIN 5,000 UNIT VIAL TP ONE (16:00)
[2020-06-08] MEDS ORDERED: BUPIVACAINE/PF 0.25% ONE (16:00)
[2020-06-08] MEDS ORDERED: PAPAVERINE 30 MG/ML, 2ML ONE (16:00)
[2020-06-08] MEDS ORDERED: HEPARIN 1,000 UNITS/ML, 10ML ONE (16:00)
[2020-06-08 16:12] LABS: MD SCAN
[2020-06-08] MEDS ORDERED: FENTANYL PF 100 MCG/2ML ONE (16:13)
[2020-06-08] MEDS ORDERED: PROPOFOL 10 MG/ML, 20ML ONE (16:19)
[2020-06-08] MEDS ORDERED: CEFAZOLIN 1,000 MG ONE (16:19)
[2020-06-08] MEDS ORDERED: OXYcodone 5 MG/5 ML ORAL.SOL UDC PO PRN (17:30)
[2020-06-08] MEDS ORDERED: PROMETHAZINE 25 MG/ML, 1ML IVPush PRN (17:30)
[2020-06-08] MEDS ORDERED: FENTANYL PF 100 MCG/2ML IV PRN (17:30)
[2020-06-08] MEDS ORDERED: ONDANSETRON 2MG/ML, 2ML IVPush PRN (17:30)
[2020-06-08] MEDS ORDERED: ACETAMINOPHEN 325 MG TABLET PO PRN (17:30)
[2020-06-08] MEDS ORDERED: OXYcodone 5 MG/5 ML ORAL.SOL UDC ONE (18:36)
== END 2020-06-08 19:10 | disposition home or self-care (01) ==
LOC: OR 14:10
PROVIDERS: ATTEND Surgery
DX: I12.0 Hypertensive chronic kidney disease with stage 5 chronic kidney disease or end stage renal disease (principal); N18.6 End stage renal disease; Z20.828 Contact with and (suspected) exposure to other viral communicable diseases; Z79.899 Other long term (current) drug therapy; Z99.2 Dependence on renal dialysis; Z87.891 Personal history of nicotine dependence; Z72.89 Other problems related to lifestyle
CPT/HCPCS: 36415; 36821; 80048; 85025; 87635; 93005; J0690; J1644; J2704; J3010; J2720; J2440